=== PATIENT | male | born 1940 | race Caucasian/White ===

== ENCOUNTER → 2016-12-10 | Outpatient (CLI) | payer MEDICARE, OTHER ==
[~2016-12-10] MED LIST: ASPI81TA81 PO; BENI40TA30; CELE200; CHOL1CAP6 PO; COEN1CAP17 PO; ECOT81TA2; EZET1TAB8 PO; FOLI1CAP9 PO; GABA300C5 PO; HYDR-2374 PO; HYDR200T3 PO; METH4PAK PO; OLME1TAB7 PO; OMEG1CAP28 PO; OMEGCAP PO; OMEP40CA2 PO; PRAV20TA2 PO; SM M250T PO; Z.0.UNKNOWN
[2016-12-10 10:48] LABS: HEMATOCRIT 49.6 % (39.0-51.0); MEAN CELL VOLUME 91.9 FL (80.0-100.0); MEAN CORPUSCULAR HEMOGLOBIN 30.1 PG (27.0-34.0); MEAN CORPUSCULAR HGB CONC 32.8 % (32.0-36.0); PLATELET COUNT 256 TH/MM3 (150-450); RED CELL DISTRIBUTION WIDTH 14.3 % (11.6-17.2); REVIEW FLAG FINAL; WHITE BLOOD COUNT 8.6 TH/MM3 (4.0-11.0)
[2016-12-10 11:04] LABS: BLOOD, URINE NEG (NEG); GLUCOSE,URINE NEG (NEG); KETONE, URINE NEG (NEG); NITRITE,URINE NEG (NEG); PH, URINE 5.5 (5.0-8.5); URINE COLOR YELLOW (YELLW/STRAW)
[2016-12-10 11:05] LABS: APTT (PATIENT) 29.4 SEC (24.3-30.1); PROTHROMBIN TIME - PATIENT 10.5 SEC (9.8-11.6)
[2016-12-10 11:19] LABS: POTASSIUM 4.6 MEQ/L (3.5-5.1)
[2016-12-10 11:21] LABS: COMMENT (UR) CULT NOT INDICATED; CULTURE IF INDICATED CULT NOT INDICATED
== END ==
LOC: CPRE 08:52
PROVIDERS: ATTEND Orthopaedic Surgery
DX: Z01.812 Encounter for preprocedural laboratory examination (principal); M79.609 Pain in unspecified limb; M16.11 Unilateral primary osteoarthritis, right hip; I10 Essential (primary) hypertension
CPT/HCPCS: 36415; 80048; 81001; 85027; 85610; 85730

== ENCOUNTER 2017-08-13 11:35 | Emergency (ER) | payer MEDICARE, OTHER ==
[~2017-08-13] VITALS: Ht 175.3 cm; Wt 94.0 kg
[~2017-08-13 11:35] MED LIST changes: -BENI40TA30; -CELE200; -CHOL1CAP6 PO; +D31000CA3 PO; -ECOT81TA2; -Z.0.UNKNOWN
[2017-08-13 11:52] VITALS: BP 152/94; PULSE 82; RESP 20; TEMP 98; O2SAT 97
[2017-08-13] MEDS ORDERED: DULO1CAP2 PO (13:30)
[2017-08-13] MEDS ORDERED: SODIUM CHLOR 0.9% 1000 ML INJ 1,000 ML IV ONE (13:30)
--- NOTE | 2017-08-13 13:31 | PD ---
HPI Chief Complaint: GI Complaint Time Seen by Provider: 13:23 Travel History International Travel<30 days: No Contact w/Intl Traveler<30days: No Traveled to known affect area: No History of Present Illness HPI 77-year-old male presented ER for evaluation of nausea vomiting since this morning. Patient had cereal this morning and since then he has been having nausea and vomiting, he vomited 2 times, vomiting is nonbilious none projectile , no abdominal pain, no diarrhea, no chest pain or shortness of breath. Patient has had one episode of sweating at [facility] this morning after the vomiting and that is why they came to the ER. He has no blurred vision, no headache, no neurological symptoms. PFSH Past Medical History High Cholesterol: Yes Diabetes: Yes Hypertension: Yes ?: Not Past Surgical History Abdominal Surgery: Yes (LEFT INGUINAL HERNIA REPAIRS X 3; RIGHT INGUINAL HERNIA REPAIR X 1) Joint Replacement: Yes (KNEE 2004) Tonsillectomy: Yes (1969) Other Surgery: Yes (HERNIA REPAIR ) Social History Alcohol Use: Yes (1 DRINK EVERY COUPLE OF DAYS) Tobacco Use: Yes (2 CIGARS A WEEK) Substance Use: No Allergies-Medications (Allergen,Severity, Reaction): Coded Allergies: No Known Allergies (Verified Adverse Reaction, Unknown, 08/13/17) Reported Meds & Prescriptions Reported Meds & Active Scripts Active Zofran Odt (Ondansetron Odt) 4 Mg Tab 4 Mg SL Q12HR PRN Reported Duloxetine DR (Duloxetine HCl) 30 Mg Capdr 30 Mg PO DAILY Methylprednisolone Dosepak (Methylprednisolone) 4 Dspk 4 Mg PO DIRECTED Per Pharmacist Direction Aspir-81 (Aspirin) 81 Mg Tabdr 81 Mg PO DAILY Vitamin D-3 (Cholecalciferol) 1,000 Unit Cap 1,000 Unit PO DAILY Cyfolex (Folic Xhtz-Wvnlcljkiiwsukn-Zvrndau) 1-800-50 Mg-Units-Mg Cap 1 Cap PO DAILY Jfa72-Altvmku E (Coenzyme J84-Svchgrz E) 200 MG-20 Unit Cap 200 Mg PO DAILY Pravastatin 20 Mg Tab 20 Mg PO HS Maynard-3 Fish Oil/Vitamin (Fish Oil-Cholecalciferol) 1,000-1,000 Mg Cap 1 Cap PO DAILY Ezetimibe 10 Mg Tab 10 Mg PO DAILY Olmesartan-Hydrochlorothiazide 40-12.5 Mg Tab 1 Tab PO DAILY Omeprazole 40 Mg Cap 40 Mg PO DAILY Review of Systems Except as stated in HPI: all other systems reviewed are Neg Physical Exam Narrative GENERAL: Alert oriented 3 no acute distress. SKIN: Focused skin assessment warm/dry. HEAD: Atraumatic. Normocephalic. EYES: Pupils equal and round. No scleral icterus. No injection or drainage. ENT: No nasal bleeding or discharge. Mucous membranes pink and moist. NECK: Trachea midline. No JVD. CARDIOVASCULAR: Regular rate and rhythm. No murmur appreciated. RESPIRATORY: No accessory muscle use. Clear to auscultation. Breath sounds equal bilaterally. GASTROINTESTINAL: Abdomen soft, non-tender, nondistended. Hepatic and splenic margins not palpable. MUSCULOSKELETAL: No obvious deformities. No clubbing. No cyanosis. No edema. NEUROLOGICAL: Awake and alert. No obvious cranial nerve deficits. Motor grossly within normal limits. Normal speech. PSYCHIATRIC: Appropriate mood and affect; insight and judgment normal. Data Data Last Documented VS Vital Signs Date Time Temp Pulse Resp B/P (MAP) Pulse Ox O2 Delivery O2 Flow Rate FiO2 08/13/17 14:51 08/13/17 14:25 80 18 99 08/13/17 11:52 98.0 Orders Orders Sodium Chlor 0.9% 1000 Ml Inj (Ns 1000 M (08/13/17 13:30) Complete Blood Count With Diff (08/13/17 13:29) Comprehensive Metabolic Panel (08/13/17 13:29) Lipase (08/13/17 13:29) Troponin I (08/13/17 13:29) Ed Discharge Order (08/13/17 14:35) Labs Laboratory Tests Test 08/13/17 13:45 White Blood Count 18.3 TH/MM3 Red Blood Count 5.25 MIL/MM3 Hemoglobin 16.4 GM/DL Hematocrit 48.9 % Mean Corpuscular Volume 93.2 FL Mean Corpuscular Hemoglobin 31.2 PG Mean Corpuscular Hemoglobin Concent 33.4 % Red Cell Distribution Width 14.3 % Platelet Count 362 TH/MM3 Mean Platelet Volume 7.6 FL Neutrophils (%) (Auto) 88.5 % Lymphocytes (%) (Auto) 3.0 % Monocytes (%) (Auto) 7.6 % Eosinophils (%) (Auto) 0.3 % Basophils (%) (Auto) 0.6 % Neutrophils # (Auto) 16.1 TH/MM3 Lymphocytes # (Auto) 0.5 TH/MM3 Monocytes # (Auto) 1.4 TH/MM3 Eosinophils # (Auto) 0.1 TH/MM3 Basophils # (Auto) 0.1 TH/MM3 CBC Comment AUTO DIFF Differential Comment AUTO DIFF CONFIRMED Blood Urea Nitrogen 22 MG/DL Creatinine 0.86 MG/DL Random Glucose 133 MG/DL Total Protein 8.0 GM/DL Albumin 4.0 GM/DL Calcium Level 9.3 MG/DL Alkaline Phosphatase 72 U/L Aspartate Amino Transf (AST/SGOT) 26 U/L Alanine Aminotransferase (ALT/SGPT) 34 U/L Total Bilirubin 0.6 MG/DL Sodium Level 137 MEQ/L Potassium Level 4.0 MEQ/L Chloride Level 102 MEQ/L Carbon Dioxide Level 26.4 MEQ/L Anion Gap 9 MEQ/L Estimat Glomerular Filtration Rate 87 ML/MIN Troponin I LESS THAN 0.02 NG/ML Lipase 116 U/L MDM Medical Decision Making Medical Screen Exam Complete: Yes Emergency Medical Condition: Yes Differential Diagnosis Gastroenteritis, gastritis, pancreatitis, UTI, dehydration, anxiety. Narrative Course 77-year-old male presented ER complaining of nausea vomiting since this morning associated with sweating. Patient was given IV fluids here in the ER and he says that he improved. He is no more nauseated and feels much better and says he is ready to go home. Labs are within normal limits except for mildly elevated white blood cells and could be explained by stress from the vomiting. There is no source of infection. We will give the patient some Zofran for nausea and advised him to return to your symptoms change or do not improve. Laboratory Tests Test 08/13/17 13:45 White Blood Count 18.3 TH/MM3 Red Blood Count 5.25 MIL/MM3 Hemoglobin 16.4 GM/DL Hematocrit 48.9 % Mean Corpuscular Volume 93.2 FL Mean Corpuscular Hemoglobin 31.2 PG Mean Corpuscular Hemoglobin Concent 33.4 % Red Cell Distribution Width 14.3 % Platelet Count 362 TH/MM3 Mean Platelet Volume 7.6 FL Neutrophils (%) (Auto) 88.5 % Lymphocytes (%) (Auto) 3.0 % Monocytes (%) (Auto) 7.6 % Eosinophils (%) (Auto) 0.3 % Basophils (%) (Auto) 0.6 % Neutrophils # (Auto) 16.1 TH/MM3 Lymphocytes # (Auto) 0.5 TH/MM3 Monocytes # (Auto) 1.4 TH/MM3 Eosinophils # (Auto) 0.1 TH/MM3 Basophils # (Auto) 0.1 TH/MM3 CBC Comment AUTO DIFF Differential Comment Blood Urea Nitrogen 22 MG/DL Creatinine 0.86 MG/DL Random Glucose 133 MG/DL Total Protein 8.0 GM/DL Albumin 4.0 GM/DL Calcium Level 9.3 MG/DL Alkaline Phosphatase 72 U/L Aspartate Amino Transf (AST/SGOT) 26 U/L Alanine Aminotransferase (ALT/SGPT) 34 U/L Total Bilirubin 0.6 MG/DL Sodium Level 137 MEQ/L Potassium Level 4.0 MEQ/L Chloride Level 102 MEQ/L Carbon Dioxide Level 26.4 MEQ/L Anion Gap 9 MEQ/L Estimat Glomerular Filtration Rate 87 ML/MIN Troponin I LESS THAN 0.02 NG/ML Lipase 116 U/L Diagnosis Primary Impression: Gastroenteritis Additional Instructions: Follow-up with primary care physician and return to your symptoms change or do not improve. Scripts Ondansetron Odt (Zofran Odt) 4 Mg Tab 4 MG SL Q12HR Y for Nausea/Vomiting, #20 TAB 0 Refills Prov: Janes Smart MD 08/13/17 Disposition: 01 DISCHARGE HOME Condition: Stable Janes Smart MD Aug 13, 2017 13:31
[2017-08-13 14:11] LABS: AUTOMATED NEUTROPHIL # 16.1 TH/MM3 (1.8-7.7); BASOPHIL # 0.1 TH/MM3 (0-0.2); BASOPHIL % 0.6 % (0.0-2.0); EOSINOPHIL # 0.1 TH/MM3 (0-0.4); EOSINOPHIL % 0.3 % (0.0-4.0); HEMATOCRIT 48.9 % (39.0-51.0); HEMOGLOBIN 16.4 GM/DL (13.0-17.0); LYMPHOCYTE # 0.5 TH/MM3 (1.0-4.8); MEAN CELL VOLUME 93.2 FL (80.0-100.0); MEAN CORPUSCULAR HEMOGLOBIN 31.2 PG (27.0-34.0); MEAN CORPUSCULAR HGB CONC 33.4 % (32.0-36.0); MEAN PLATELET VOLUME 7.6 FL (7.0-11.0); MONO % 7.6 % (0.0-8.0); MONOCYTE # 1.4 TH/MM3 (0-0.9); NEUT % 88.5 % (16.0-70.0); PLATELET COUNT 362 TH/MM3 (150-450); RED BLOOD COUNT 5.25 MIL/MM3 (4.50-5.90); RED CELL DISTRIBUTION WIDTH 14.3 % (11.6-17.2); WHITE BLOOD COUNT 18.3 TH/MM3 (4.0-11.0)
[2017-08-13 14:16] LABS: CHLORIDE 102 MEQ/L (98-107); SODIUM (NA) 137 MEQ/L (136-145)
[2017-08-13 14:19] LABS: BICARBONATE 26.4 MEQ/L (21.0-32.0); CALCIUM 9.3 MG/DL (8.5-10.1); GLUCOSE,RANDOM 133 MG/DL (74-106)
[2017-08-13 14:20] LABS: BLOOD UREA NITROGEN 22 MG/DL (7-18)
[2017-08-13 14:22] LABS: ALT (GPT) 34 U/L (12-78); AST (GOT) 26 U/L (15-37)
[2017-08-13 14:23] LABS: CREATININE 0.86 MG/DL (0.60-1.30); GLOMERULAR FILTRATION RATE 87 ML/MIN (>89)
[2017-08-13 14:24] LABS: TOTAL BILIRUBIN ADULT 0.6 MG/DL (0.2-1.0)
[2017-08-13 14:25] VITALS: BP 121/72; PULSE 80; RESP 18; O2SAT 99
[2017-08-13 14:25] LABS: ALKALINE PHOSPHATASE 72 U/L (45-117)
[2017-08-13 14:27] LABS: TROPONIN I LESS THAN 0.02 NG/ML (0.02-0.05)
[2017-08-13] MEDS ORDERED: ZOFR4TAB3 SL (14:45)
== END 2017-08-13 14:52 | disposition home or self-care (01) ==
LOC: PHED 11:35
DX: K52.9 Noninfective gastroenteritis and colitis, unspecified (principal); R61 Generalized hyperhidrosis; E11.9 Type 2 diabetes mellitus without complications; E78.00 Pure hypercholesterolemia, unspecified; I10 Essential (primary) hypertension; Z72.0 Tobacco use; Z79.82 Long term (current) use of aspirin; Z79.899 Other long term (current) drug therapy
CPT/HCPCS: 80053; 83690; 84484; 85025; 96360; 99284; J7030

== ENCOUNTER 2017-09-16 07:00 | Inpatient (IN) ==
[2017-09-30] MEDS ORDERED: Chlorhexidine Gluconate 2% 1 Pack (2 Cloths) TOPICAL SCH (05:45)
[2017-09-30] MEDS ORDERED: Chlorhexidine 4% Topical 120 APPLIC/120 ML Bottle TOPICAL SCH (05:45)
[2017-09-30] MEDS ORDERED: Metoprolol Tartrate 25 MG Tablet PO SCH (05:45)
[2017-09-30] MEDS ORDERED: Sodium Chlor 0.9% Inj 500 ML IV.SIG SCH (06:00)
[2017-09-30] MEDS ORDERED: ceFAZolin 2 GM Premix Inj 2 GM/50 ML PIGGYBACK IV.SIG SCH (06:00)
[2017-09-30] MEDS ORDERED: Dexmedetomidine Inj 200 MCG/2 ML Vial ONE (06:20)
[2017-09-30] MEDS ORDERED: fentaNYL Citrate Inj 100 MCG/2 ML Ampul ONE (06:20)
[2017-09-30] MEDS ORDERED: Propofol Inj 500 MG/50 ML Vial ONE (06:20)
[2017-09-30] MEDS ORDERED: Famotidine PF Inj 20 MG/2 ML Vial ONE (06:20)
[2017-09-30] MEDS ORDERED: Bupivacaine/Dextrose 0.75% Inj 2 ML Ampul ONE (06:20)
[2017-09-30] MEDS ORDERED: TRANEXAMIC ACID IV.SIG SCH ×2 (07:00→10:00)
[2017-09-30] MEDS ORDERED: ceFAZolin Inj 2,000 MG in Sodium Chlor 0.9% Inj 100 ML IV.SIG SCH (07:00)
[2017-09-30] MEDS ORDERED: Sodium Chlor 0.9% Inj 40 ML, Bupivacaine Liposo PF 1.3% Inj 20 ML P-ARTICULR SCH ×2 (07:00)
[2017-09-30] MEDS ORDERED: SODIUM CHLOR 0.9% IV.SIG SCH ×2 (07:00→10:00)
--- NOTE | 2017-10-17 09:47 | P.HPOP ---
History of Present Illness Primary Care Physician: Yousif Brock MD History of Present Illness: Present Illness: This 77 year old man began having pain in the left hip approximately 16 months ago. The pain began to increase steadily and has become functionally disabling in activities of daily living. The pain is increased on ambulation and increases more with increased weightbearing on the lower extremity. There is some relief obtained when limiting weightbearing. The patient is now able to ambulate only 200 to 300 feet because of the pain. The patient has also noticed stiffness in the joint and pain with movement. Other symptoms include left groin pain which radiates to the knee and occasionally to the lower leg, pain when turning over in bed, occasional giving way, and stiffness after sitting. Since the onset of the patient's pain, treatment has been rendered by Yousif Brock M.D., and the undersigned with analgesics, nonsteroidal anti- inflammatory agents, activity modification, exercises, ambulatory aids, and weight loss attempts. These non-operative medical treatments no longer give adequate pain relief to allow the patient to perform a functional level of activities of daily living. Imaging studies, including x-rays, show advanced arthritis of the left hip, including joint space narrowing to [id number] on the AP view and nearly so on the lateral view. There are minimal osteophytes. The soft tissues appear to be normal. The patient also has comorbidities as detailed below under the heading of "Current Medical Conditions", which have been addressed by the primary care physician and are being as well controlled as possible for the planned surgical procedure. - Diagnosis (1) Primary osteoarthritis of left hip Inpatient Certification: I certify that the inpatient services were ordered in accordance with Medicare regulations governing the order. This includes certification that hospital inpatient services are reasonable and necessary and in the case of services not specified as inpatient-only under 42 CFR 419.22(n), that they are appropriately provided as inpatient services in accordance to with the 2-midnight benchmark under 43 CFR 412.3(e) Review of Systems Past Surgical History: Herniorrhaphy: Four, [id number] Lumbar laminectomy: L4-L5, L3-L4, 1987 Shoulder arthroscopy: Right, 06-11-95, Dr. Smith Knee arthroscopy: Left, 09-06-00, Dr. Smith Total knee replacement: Left, 05-23-04, Dr. Smith Lumbar spine: L3-4, 2013 Past Medical History: Cryptococcus: 2004 No prior fractures Dehydration: July 2017 Current Medical Conditions: Hypertension Rheumatoid arthritis Current Physicians: Primary care physician: Yousif Brock M.D. Trust And Estates Attorney: Miles Valencia M.D. Rubber Goods Assembler: Robert Bills M.D. Independent Freight Agent: Betsy Wolff D.O. Pain management: Jimbo Finney M.D. Sports medicine: Dr. Alvarez Sausage Grinder: Geraldine Mijares M.D. Architect: Faith Murillo M.D. Neurologist: Kirk Tillman M.D. Medication: Aleve 220MG Tablet, Ref: 0 Amoxicillin 500MG Capsule, Sig: Take 4 capsules one hour prior to dental work with food, Qty: 4 Capsule, Ref: 0 BENICAR HCT 40-12.5 MG Tab(s), 90, Qty: 90, Ref: 0 Coq-10 200MG Capsule, Ref: 0 Duloxetine 30mg delayed-release capsule, Ref: 0 Ecotrin low strength 81MG Tablet Delayed Release, Ref: 0 Folic acid 800MCG Tablet, Ref: 0 Gabapentin 600MG Tablet, Ref: 0 HYDROXYCHLOR 200 MG Tab(s), 90, Qty: 180, Ref: 0 Magnesium 500MG Tablet, Ref: 0 Methylprednisolone 4MG Tablet, Ref: 0 Naproxen sodium 220mg tablet, Ref: 0 Jenkins 3 , Ref: 0 OMEPRAZOLE CAP 40MG 40 MG Capsule Delayed Release, 90, Qty: 90, Ref: 0 Pravastatin sodium 20MG Tablet, Ref: 0 VIAGRA 100 MG Tab(s), 10, Qty: 10, Ref: 0 Vitamin b-12 1000MCG Tablet, Ref: 0 Vitamin d3 1000UNIT Tablet, Ref: 0 ZETIA TAB 10MG 10 MG Tablet, 90, Qty: 90, Ref: 0 Allergies: No Known Drug Allergies Family History: Parents: Father-: Age 63, stroke, heart disease Parents: Mother-: Age 92, congestive heart failure, arthritis Siblings: Two living Sister: , esophageal cancer Brother: , aneurysm Grandmother: Maternal, breast cancer Social History: Marital Status: 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 [facility] - History History Provided By: Patient - Medical History Medical History: Medical History (Last Reviewed 10/15/17 @ 11:15 by Roberto Singh) Arthritis Constipated External hemorrhoid GERD (gastroesophageal reflux disease) Hard of hearing High cholesterol History of MRSA infection Hypertension Neuropathy Rheumatoid arthritis Skin cancer Urinary frequency Uses hearing aid Wears dentures Wears glasses - Surgical History Surgical History: Surgical History (Last Reviewed 10/15/17 @ 11:15 by Roberto Singh) H/O arthroscopy of shoulder H/O inguinal hernia repair History of laminectomy Hx of tonsillectomy Total knee replacement status - Family History Family History: Family History (Last Reviewed 10/15/17 @ 10:56 by Martha Garcia PT) Mother Osteoarthritis - Tobacco History Second Hand Smoke Exposure: No Smoking Status: Former smoker - Alcohol History How Often Do You Have a Drink Containing Alcohol: 2 to 4 times a month - Substance Use History Substance History: No History of Abuse - Travel History Recent Travel in the [place] Within the Last 8 Weeks: Yes Recent Travel Out of the Country Within the Last 8 Weeks: No Medications and Allergies Allergies Allergy/AdvReac Type Severity Reaction Status Date / Time chlorhexidine Allergy Severe Rash, Verified 10/14/17 11:22 Generalized hydroxychloroquine Allergy Rash Verified 10/14/17 11:22 Home Medications Medication Instructions Recorded Confirmed Type cholecalciferol (vitamin D3) 1,000 unit PO DAILY 09/05/17 10/14/17 History [Vitamin D3] coQ10 (ubiquinol) 200 mg PO DAILY 09/05/17 10/14/17 History cyanocobalamin (vitamin B-12) 2,000 mcg PO DAILY 09/05/17 10/14/17 History [Vitamin B-12] duloxetine 60 mg PO DAILY 09/05/17 10/14/17 History ezetimibe 10 mg PO DAILY 09/05/17 10/14/17 History folic acid 0.8 mg PO DAILY 09/05/17 10/14/17 History methylprednisolone 4 mg PO DAILY 09/05/17 10/14/17 History olmesartan-hydrochlorothiazide 0.5 tab PO DAILY 09/05/17 10/14/17 History omega [id number]-[id number]-fish oil [Jenkins-3] 1 cap PO DAILY 09/05/17 10/14/17 History omeprazole 40 mg PO DAILY 09/05/17 10/14/17 History pravastatin 20 mg PO HS 09/05/17 10/14/17 History Exam Narrative: Examination: Height: 5'11''; Weight: 200; BMI: 27.9 ; BP Sittin / 70 General: The patient is a well-developed, heavyset man appearing to be about his stated age. Head: Head is normocephalic and without injury. Eyes: Pupils are round, equal, and equally reactive to light and accommodation. The sclera are nonicteric. The conjunctiva are pink. Extraocular motions are full. Nose and throat: The tongue and uvula are midline. The mucous membranes are moist and intact. Dentition is incomplete, with dental appliances. Neck: The neck is supple. There is no palpable lymphadenopathy. The trachea is midline. Chest: The respiratory excursions are symmetrical. Breath sounds are normal. There are no rales, rhonchi or wheezes. Heart: The rhythm is regular. There is no audible murmur. Abdomen: There is no palpable or percussible organomegaly or mass. Bowel sounds are normal. There is no rebound, rigidity, or tenderness. The contour is somewhat rotund. Extremities: The patient is able to stand from a seated position without difficulty. He transfers with minimal difficulty, using his left hand to assist transferring his left hip. The gait is antalgic on the left. Both hips are examined for comparison. There is no visible deformity. There is no tenderness to palpation in the hip at this time. The range of motion of the hips is as follows: Right side Left side Flexion 110 110 External rotation 70 40 Internal rotation 15 5 Adduction 20 15* Abduction 40 20* In the chart above, an asterisk (*) denotes pain at the extreme of motion. The tenderness is in his groin. Ruben test is negative on the right. Ruben test is positive on the left. Straight leg raising comes to 90 on the right and 80 on the left. Hamstring tightness measures 10 on the right and 10 on the left with the hip at 90. Pulses in the right leg are normal at the dorsalis pedis and posterior tibial levels. Pulses in the left leg are normal at the dorsalis pedis and posterior tibial levels. There are no clinically significant varicosities. There is no edema. Neurologic: The patient is alert and oriented. Cranial nerves II through XII are grossly intact. Sensory and motor examinations are grossly intact. Results - Diagnostic results Imaging: Imaging studies, including x-rays, show advanced arthritis of the left hip, including joint space narrowing to [id number] on the AP view and nearly so on the lateral view. There are minimal osteophytes. The soft tissues appear to be normal. Hip x-ray: other Caprini VTE Risk Assessment Caprini VTE Risk Assessment: No/Low Risk (score <= 1) Caprini Risk Assessment Model: Point Value = 1 Point Value = 2 Point Value = 3 Point Value = 5 Age 41-60 Minor surgery BMI > 25 kg/m2 Swollen legs Varicose veins or History of unexplained or recurrent spontaneous Oral contraceptives or hormone replacement Sepsis (< 1 month) Serious lung disease, including pneumonia (< 1 month) Abnormal pulmonary function Acute myocardial infarction Congestive heart failure (< 1 month) History of inflammatory bowel disease Medical patient at bed rest Age 61-74 Arthroscopic surgery Major open surgery (> 45 min) Laparoscopic surgery (> 45 min) Malignancy Confined to bed (> 72 hours) Immobilizing plaster cast Central venous access Age >= 75 History of VTE Family history of VTE Factor V Leiden Prothrombin [id number] Lupus anticoagulant Anticardiolipin antibodies Elevated serum homocysteine Heparin-induced thrombocytopenia Other congenital or acquired thrombophilia Stroke (< 1 month) Elective arthroplasty Hip, pelvis, or leg fracture Acute spinal cord injury (< 1 month) Prophylaxis Regimen: Total Risk Factor Score Risk Level Prophylaxis Regimen 0-1 Low Early ambulation 2 Moderate Order ONE of the following: *Sequential Compression Device (SCD) *Heparin 5000 units SQ BID 3-4 Higher Order ONE of the following medications: *Heparin 5000 units SQ TID *Enoxaparin/Lovenox 40 mg SQ daily (WT < 150 kg, CrCl > 30 mL/min) *Enoxaparin/Lovenox 30 mg SQ daily (WT < 150 kg, CrCl > 10-29 mL/min) *Enoxaparin/Lovenox 30 mg SQ BID (WT < 150 kg, CrCl > 30 mL/min) AND/OR *Sequential Compression Device (SCD) 5 or more Highest Order ONE of the following medications: *Heparin 5000 units SQ TID (Preferred with Epidurals) *Enoxaparin/Lovenox 40 mg SQ daily (WT < 150 kg, CrCl > 30 mL/min) *Enoxaparin/Lovenox 30 mg SQ daily (WT < 150 kg, CrCl > 10-29 mL/min) *Enoxaparin/Lovenox 30 mg SQ BID (WT < 150 kg, CrCl > 30 mL/min) AND *Sequential Compression Device (SCD) Assessment and Plan - Problem List (1) Primary osteoarthritis of left hip Code(s): M16.12 - Unilateral primary osteoarthritis, left hip Status: Chronic - Assessment and Plan Plan: A left total hip arthroplasty is planned. I have been in contact with the patient's primary care physician, Yousif Brock M.D. Medical problems will be managed by [facility] during the hospitalization. I have explained the procedure to the patient. The patient understands the procedure, risks, possible complications (including but not limited to postoperative or intraoperative bleeding, infection, leg length inequality, dislocation, fracture, deep vein thrombosis, pulmonary embolus, neurovascular compromise, possible need for additional procedures and, very rarely, the possibility of ), expected results, and expected course of treatment. The patient accepts the above noted risks because the potential benefits of joint replacement outweigh the failure of non-operative care to provide adequate pain relief and/or to improve associated functional disabilities. The patient understands that there are no expressed or implied guarantees with the proposed procedure. After the hospitalization, the patient plans to go home with home health care, [facility].
== END 2017-09-30 06:50 | disposition home or self-care (01) ==
LOC: HSDI 09-30 05:17
PROVIDERS: ADMIT Orthopaedic Surgery; ATTEND Orthopaedic Surgery

== ENCOUNTER 2017-10-14 10:45 | Inpatient (IN) ==
[2017-10-14] MEDS ORDERED: Metoprolol Tartrate 25 MG Tablet PO SCH (11:30)
[2017-10-14] MEDS ORDERED: ceFAZolin 2 GM Premix Inj 2 GM/100 ML BAG IV.SIG SCH (11:38)
[2017-10-14] MEDS ORDERED: Sodium Chlor 0.9% Inj 40 ML, Bupivacaine Liposo PF 1.3% Inj 20 ML P-ARTICULR SCH ×2 (11:45)
[2017-10-14] MEDS ORDERED: Sodium Chlor 0.9% Inj 500 ML IV.SIG SCH (12:00)
[2017-10-14] MEDS ORDERED: TRANEXAMIC ACID IV.SIG SCH ×2 (12:00→14:35)
[2017-10-14] MEDS ORDERED: SODIUM CHLOR 0.9% IV.SIG SCH ×2 (12:00→14:35)
[2017-10-14] MEDS ORDERED: Phenylephrine/NS 1000 MCG/10ML Syringe IV.PUSH ONE (13:59)
[2017-10-14] MEDS ORDERED: Glycopyrrolate Inj 1 MG/5 ML Syringe IV.PUSH ONE (13:59)
[2017-10-14] MEDS ORDERED: Neostigmine Inj 5 MG/5 ML Syringe IV.PUSH ONE (13:59)
[2017-10-14] MEDS ORDERED: Lidocaine PF 1% Inj 5 ML Syringe INFILTRATN ONE (13:59)
--- NOTE | 2017-10-14 16:25 | P.OP ---
- Preoperative Diagnosis (1) Primary osteoarthritis of left hip - Postoperative Diagnosis (1) Primary osteoarthritis of left hip Date of procedure: 10/14/17 Procedure: Left total hip arthroplasty using Lincoln prosthesis. Anesthesia: GETA, local (Exparel) Surgeon: Michael Smith MD Batchmaker: BLUE Murillo Estimated blood loss (mL): 200 Pathology: none sent Operation and Findings: Indications and Findings: This 77-year-old man has had long-standing left hip pain at least over the last 16 months. This has been progressively worsening over time. His ambulation tolerance is 200-300 feet. He has groin pain that radiates to the knee. He has been treated with anti-inflammatory agents, analgesics, activity modification, exercises and ambulatory aids with no improvement and substantial worsening. Physical findings showed an antalgic gait with limited motion of the hip, tenderness on motion and some crepitation. X-rays show severe osteoarthritis down to [id number] with some collapse of the femoral head, eburnation and osteophytes. Operative findings: The femoral head had significant erosion covering almost the entire superior aspect with osteophytes and eburnation. The acetabulum also had erosion with eburnation and osteophytes. Implants: The acetabular component was a 56 mm outer diameter Trident 2 Tritanium with a 36 mm inner diameter 0 X3 polyethylene liner. The femoral component was Accolade 2 size 6 x 132. The femoral head was Biolox Delta 36 mm outer diameter with -5 mm offset. The patient was brought to the clean air operating suite and a general endotracheal anesthetic was administered. The patient was positioned into a lateral position with the operative hip up on a Biomet lateral positioner. The hip and lower extremity were prepped with alcohol, Hibiclens and ChloraPrep and draped in the usual manner with the hip draped free. Patient received prophylactic antibiotics preoperatively. The patient also received tranexamic acid preoperatively. An appropriate timeout procedure was carried out. An incision was made from the midportion of the greater trochanter proximally and posteriorly paralleling the fibers of the gluteus aleida. The incision was deepened through subcutaneous tissues down to the fascia octaviano and gluteus fascia. The gluteus fascia was then split longitudinally in line with its fibers up to the upper portion of the fascia octaviano. With wound towels in place, the Charnley retractor was inserted. The sciatic nerve was identified and protected throughout the procedure. Dissection was then carried down to the interval between the gluteus minimus and the piriformis. A retractor was inserted. The piriformis and obturator conjoined tendon was released from the greater trochanter and reflected off the capsule. A capsulotomy was made longitudinally along the femoral neck to the base of the femoral neck and then curved distally along the posterior aspect of the greater trochanter. The hip was internally rotated. Further release of the external rotators was carried out exposing the hip. The hip was dislocated. The femoral neck was transected at the appropriate level using the oscillating saw placement of appropriate retractors. The femoral head was removed. Preparation of the femur was initiated with a box osteotome followed by a curet to identify the medullary canal. Broaching was then initiated with the size 0 broach and went in 1 size increments up to size 6. The broach handle was removed. The femoral neck was then trimmed with a calcar planar. Attention was then directed to the acetabulum. Soft tissues were debrided from the acetabulum. Retractors were placed about the acetabulum. Reaming was then initiated with the 49 millimeter reamer and went in 1-2 mm increments up to the 56 millimeter diameter reamer. A trial reduction with the 56 millimeter trial prosthesis was carried out. When this was deemed to be appropriate, the trial prosthesis was removed. The acetabulum was irrigated and cleaned. The actual prosthesis as noted above was impacted into place and seated appropriately. Drill holes were made and sounded. Appropriate sized screws were inserted to stabilize the acetabulum further. The liner as noted above was inserted into the acetabular shell and impacted into place. Osteophytes were trimmed from the acetabulum. Local anesthetic was administered throughout the area of the acetabulum and anterior aspect of the femur. The trial neck was placed on the broach for the above-noted prosthesis. The femoral head trial was placed onto the femoral neck . A trial reduction was carried out. Adjustment was made as needed. The stability, leg length and motion were excellent. There was no pistoning. The trial prosthesis was removed. The broach was removed. The femoral component was impacted into the medullary canal of the femur after irrigation and suctioning. When this was appropriately seated a trial reduction was again carried out with the trial prosthesis. There was no pistoning. The leg length was appropriate. The stability and motion were excellent. The trial prosthesis was then removed. After cleaning and drying the trunion of the femoral component, the above-noted femoral head was impacted onto the trunnion. The hip was reduced. The stability and mobility were again checked along with leg lengths as noted above. The hip was positioned appropriately and closure commenced after the remainder of the local anesthetic was injected throughout the hip. The external rotators and capsule were repaired with #1 Vicryl interrupted transosseous sutures with a Krakw technique to reattach the external rotators and capsule to the posterior aspect of the greater trochanter. The capsule itself on the superior aspect was closed with #1 Vicryl interrupted [id number] sutures. The sciatic nerve was inspected. The fascia octaviano and gluteus fascia were repaired with #1 Vicryl interrupted [id number] sutures. The subcutaneous tissues were closed with 2-0 Vicryl interrupted simple sutures with buried knots. The skin was closed with a continuous subcuticular closure of 4-0 Monocryl. The wound was then approximated with Dermabond Prineo. A dry sterile dressing was applied to the hip. A knee immobilizer was applied to the leg. The patient was transferred from the operating room to the recovery room in satisfactory condition having tolerated the procedure well. Counts are correct. Specimens: None. Estimated blood loss: 200 mL
--- NOTE | 2017-10-14 16:27 | P.DCO ---
- Physical Therapy Physical Therapy: Gait training Hip: Total hip, Protocol: Left, Posterior hip precautions, Progress to weight bearing Canvas Knee Splint: When in bed with 2 pillows between thighs Right Lower Extremity Weight Bearing: Weight bearing as tolerated Right Lower Extremity Range of Motion: Active ROM - Nursing Nursing: Dressing changes Dressing changes: Daily dressing change, Coverderm/Primapore Additional instructions: Do not remove Dermabond Prineo. - Certification Need for Home Health services: I have seen patient Michael Sal on 10/14/17. My clinical findings support the need for the requested home health care services because: Need for Home Health Services: Deconditioned with increased weakness, High risk of falls Homebound Certification: I certify that my clinical findings support that this patient is homebound because: Homebound Certification: Post-op weakness, Unsteady gait/balance, Unsafe to leave home unassisted
[2017-10-14] MEDS ORDERED: Post-op Orders (for Pharmacy) OTHER STA (16:33)
[2017-10-14] MEDS ORDERED: Bisacodyl 10 MG Supp RECTAL PRN (16:33)
[2017-10-14] MEDS ORDERED: Tranexamic Acid Inj 0 MG in Sodium Chlor 0.9% Inj 100 ML IV.SIG ONE (16:33)
[2017-10-14] MEDS ORDERED: Aluminum/Magnesium/Simethacone Susp 30 ML UDC PO PRN (16:33)
[2017-10-14] MEDS ORDERED: Morphine Inj 4 MG/ML Vial IV.PUSH PRN (16:33)
[2017-10-14] MEDS ORDERED: Acetaminophen 325 MG Tablet PO PRN (16:33)
--- NOTE | 2017-10-14 17:06 | XR ---
EXAM DATE: 10/14/2017 5:02 PM EDT AGE/SEX: 77 years / Male INDICATIONS: Post left hip replacement CLINICAL DATA: This is the patient's initial encounter. Patient reports that signs and symptoms have been present for 1 day and indicates a pain score of Nonresponsive. MEDICAL/SURGICAL HISTORY: Non-responsive. Non-responsive. COMPARISON: POI, XR HIP AP AND LAT, LEFT, 06/21/2016. . FINDINGS: Total hip arthroplasty is in satisfactory position. The alignment is anatomic. CONCLUSION: Postsurgical changes as above. Electronically signed by: Yuosif Owens MD 10/14/2017 5:05 PM EDT
--- NOTE | 2017-10-14 17:33 | P.CONIM ---
History of Present Illness Primary Care Provider: Yousif Brock MD Family Provider: Yousif Brock [facility] - History History Provided By: Patient - Medical History Medical History: Medical History (Last Reviewed 10/14/17 @ 11:25 by Phu Champion, RN) Arthritis Constipated External hemorrhoid GERD (gastroesophageal reflux disease) Hard of hearing High cholesterol History of MRSA infection Hypertension Neuropathy Rheumatoid arthritis Skin cancer Urinary frequency Uses hearing aid Wears dentures Wears glasses - Surgical History Surgical History: Surgical History (Last Reviewed 10/14/17 @ 11:25 by Phu Champion, RN) H/O arthroscopy of shoulder H/O inguinal hernia repair History of laminectomy Hx of tonsillectomy Total knee replacement status - Tobacco History Second Hand Smoke Exposure: No Smoking Status: Former smoker - Alcohol History How Often Do You Have a Drink Containing Alcohol: 2 to 3 times a week - Substance Use History Substance History: No History of Abuse - Travel History Recent Travel in the [place] Within the Last 8 Weeks: No Recent Travel Out of the Country Within the Last 8 Weeks: No Medications and Allergies Active Medications: Active Medications Acetaminophen (Tylenol) 650 mg PO Q6H PRN PRN Reason: Pain Less Than 3 On Scale Hydrocodone Bitart/Acetaminophen (Maple 7.5/325) 1 tab PO Q4H PRN PRN Reason: PAIN SCALE 4 TO 6 MODERATE Hydrocodone Bitart/Acetaminophen (Maple 7.5/325) 2 tab PO Q6H PRN PRN Reason: PAIN SCALE 7 TO 10 SEVERE Al Hydrox/Mg Hydrox/Simethicone (Mag-Al Plus Susp Liq) 30 ml PO Q6H PRN PRN Reason: INDIGESTION Al Hydroxide/Mg Hydroxide (Milk Of Magnesia Liq) 30 ml PO BID PRN PRN Reason: Mild Constipation Aspirin (Ecotrin) 81 mg PO BID ANTHONY Bisacodyl (Dulcolax Supp) 10 mg RECTAL DAILY PRN PRN Reason: SEVERE CONSITIPATION Sodium Chloride 40 ml/ (Bupivacaine Liposome 20 ml) 0 ml P-ARTICULR ONCE ANTHONY Stop: 10/14/17 18:00 Last Admin: 10/14/17 15:37 Dose: 60 bag Diphenhydramine HCl (Benadryl) 25 mg PO Q6H PRN PRN Reason: ITCHING Duloxetine HCl (Cymbalta) 60 mg PO DAILY ANTHONY Ezetimibe (Zetia) 10 mg PO DAILY [facility] Lactated Ringer's (Lr 1000 Ml Inj) 1,000 mls @ 30 mls/hr IV.SIG .Q24H [facility] Stop: 10/17/17 11:30 Last Admin: 10/14/17 11:42 Dose: 30 mls/hr Sodium Chloride (Ns Inj) 500 mls @ 30 mls/hr IV.SIG .Q10H [facility] Stop: 10/17/17 11:30 Cefazolin/Sodium Chloride (Ancef 2 Gm Premix Inj) 2 gm in 100 mls @ 200 mls/hr IV.SIG [employer] [facility] Tranexamic Acid 886 mg/ Sodium (Chloride) 108.86 mls @ 200 mls/hr IV.SIG ONCE [facility] Stop: 10/15/17 11:59 Last Infusion: 10/14/17 15:14 Dose: Infused Tranexamic Acid 886 mg/ Sodium (Chloride) 108.86 mls @ 200 mls/hr IV.SIG ONCE [facility] Stop: 10/15/17 20:00 Lactated Ringer's (Lr 1000 Ml Inj) 1,000 mls @ 80 mls/hr IV.CONT .[id number] [facility] Tranexamic Acid / Sodium (Chloride) 100 mls @ 200 mls/hr IV.SIG ONCE ONE Stop: 10/14/17 17:02 Cefazolin Sodium 1,000 mg/ (Sodium Chloride) 100 mls @ 200 mls/hr IV.SIG Q6H [facility] Stop: 10/15/17 05:29 Ketorolac Tromethamine (Toradol Inj) 15 mg IV.PUSH Q6H [facility] Stop: 10/16/17 10:46 Lactulose (Lactulose Liq) 30 ml PO DAILY PRN PRN Reason: SEVERE CONSITIPATION Methylprednisolone (Medrol) 4 mg PO DAILY [facility] Metoprolol Tartrate (Lopressor) 25 mg PO [employer] [facility] Stop: 10/17/17 11:30 Last Admin: 10/14/17 11:43 Dose: Not Given Miscellaneous Information (Misc Post-Op Orders (For Pharmacy)) 0 each OTHER STAT STA Stop: 10/14/17 16:34 Miscellaneous Information (Misc Nursing Information) 1 each OTHER UNSCH PRN PRN Reason: SEE LABEL COMMENTS Stop: 10/15/17 16:41 Morphine Sulfate (Morphine Inj) 2 mg IV.PUSH Q3H PRN PRN Reason: BREAKTHROUGH PAIN Non-Formulary Medication (Cholecalciferol (Vitamin D3) [Vitamin D3]) 1,000 unit PO DAILY [facility] Non-Formulary Medication (Cyanocobalamin (Vitamin B-12) [Vitamin B-12]) 2,000 mcg PO DAILY [facility] Non-Formulary Medication (Folic Acid [Folic Acid]) 0.8 mg PO DAILY [facility] Non-Formulary Medication (Olmesartan-Hydrochlorothiazide [Olmesartan- Hydrochlorothiazide]) 0.5 tab PO DAILY [facility] Non-Formulary Medication (Omeprazole [Omeprazole]) 40 mg PO DAILY [facility] Ondansetron HCl (Zofran Odt) 4 mg PO Q6H PRN PRN Reason: NAUSEA OR VOMITING Povidone Iodine (Betadine 5% Antisepsis Kit) 1 applicatio EACH NARE [employer] [facility] Stop: 10/17/17 11:30 Last Admin: 10/14/17 11:42 Dose: Not Given Pravastatin Sodium (Pravachol) 20 mg PO HS [facility] Senna/Docusate Sodium (Masha-Colace) 1 tab PO BID [facility] Sennosides (Senokot) 17.2 mg PO BID PRN PRN Reason: Moderate Constipation Sodium Chloride (Ns Flush) 2 ml IV.FLUSH BID [facility] Sodium Chloride (Ns Flush) 2 ml IV.FLUSH PRN PRN PRN Reason: FLUSH AFTER USING IV ACCESS Zolpidem Tartrate (Ambien) 5 mg PO HS PRN PRN Reason: INSOMNIA Allergies Allergy/AdvReac Type Severity Reaction Status Date / Time chlorhexidine Allergy Severe Rash, Verified 10/14/17 11:22 Generalized hydroxychloroquine Allergy Rash Verified 10/14/17 11:22 Home Medications Medication Instructions Recorded Confirmed Type aspirin [Ecotrin Low Strength] 81 mg PO DAILY 09/05/17 10/14/17 History cholecalciferol (vitamin D3) 1,000 unit PO DAILY 09/05/17 10/14/17 History [Vitamin D3] coQ10 (ubiquinol) 200 mg PO DAILY 09/05/17 10/14/17 History cyanocobalamin (vitamin B-12) 2,000 mcg PO DAILY 09/05/17 10/14/17 History [Vitamin B-12] duloxetine 60 mg PO DAILY 09/05/17 10/14/17 History ezetimibe 10 mg PO DAILY 09/05/17 10/14/17 History folic acid 0.8 mg PO DAILY 09/05/17 10/14/17 History methylprednisolone 4 mg PO DAILY 09/05/17 10/14/17 History olmesartan-hydrochlorothiazide 0.5 tab PO DAILY 09/05/17 10/14/17 History omega 7-cot-beh-fish oil [[place]-3] 1 cap PO DAILY 09/05/17 10/14/17 History omeprazole 40 mg PO DAILY 09/05/17 10/14/17 History pravastatin 20 mg PO HS 09/05/17 10/14/17 History Exam Vital signs: Vital Signs 10/14/17 11:32 10/14/17 16:40 Temperature 97.7 F 97.3 F L Pulse Rate 72 74 Respiratory Rate 20 18 Blood Pressure 121/78 Pulse Oximetry 95 94 L Intake & Output 10/13/17 10/14/17 10/14/17 18:59 06:59 18:59 Intake Total 2608.86 / 2608.86 Output Total 200 / 200 Balance 2408.86 / 2408.86 Weight 88.6 kg Intake: IV 108.86 / 108.86 Cyklokapron Inj 886 MG In NS 108.86 / 108.86 Inj 100 ML @ 200 mls/hr IV.SIG ONCE ANTHONY Rx#:[id number] Anesthesia Amount 2500 / 2500 Output: Estimated Blood Loss 200 / 200 Other: Weight On Admission 88.6 kg Results - Labs Labs: Laboratory Results - last 24 hr 10/14/17 10:30 Blood Type A Positive Antibody Screen Negative - Imaging Impressions Hip X-Ray 10/14/17 16:28 CONCLUSION: Postsurgical changes as above.
--- NOTE | 2017-10-14 17:59 | P.CONIM ---
History of Present Illness Primary Care Provider: Yousif Brock MD Family Provider: Yousif Brock MD History of Present Illness: Mr. Sal is a 77-year-old male. He is admitted for a hip surgery. I am seeing him status post surgical intervention. At baseline he has rheumatoid arthritis which is likely etiology for his hip arthritis and hip replacement. No complaints when seen. Pain control. His other medical conditions are hypertension and hyperlipidemia. She denies any recent rheumatoid arthritis exacerbations. Review of Systems Constitutional: Denies fever(s), Denies malaise, Denies weakness Eyes: Denies blind spots, Denies blurry vision, Denies change in vision, Denies double vision Ears, Nose, Mouth, and Throat: Denies abnormal hearing, Denies bleeding gums, Denies change in voice Cardiovascular: Denies chest pain, Denies chest pain at rest, Denies chest pain with activity Respiratory: Denies change in phlegm color, Denies chest congestion, Denies coughing up blood Gastrointestinal: Denies abdominal pain, Denies black, tarry stools, Denies bloating Musculoskeletal: Reports abnormal walking, Reports body aches, Reports joint pain Skin/Breast: Denies rash, Denies skin pain, Denies skin ulcer, Denies sores Neurologic: Denies abnormal hearing, Denies abnormal movements, Denies abnormal speech Psychiatric: Denies abnormal sleep pattern, Denies anxiety, Denies behavioral changes PMFSH - History History Provided By: Patient - Medical History Medical History: Medical History (Last Reviewed 10/14/17 @ 11:25 by Phu Champion RN) Arthritis Constipated External hemorrhoid GERD (gastroesophageal reflux disease) Hard of hearing High cholesterol History of MRSA infection Hypertension Neuropathy Rheumatoid arthritis Skin cancer Urinary frequency Uses hearing aid Wears dentures Wears glasses - Surgical History Surgical History: Surgical History (Last Reviewed 10/14/17 @ 11:25 by Phu Champion RN) H/O arthroscopy of shoulder H/O inguinal hernia repair History of laminectomy Hx of tonsillectomy Total knee replacement status - Family History Family History: Family History (Last Updated 10/14/17 @ 17:57 by Jeyson Avendano MD) Mother Osteoarthritis - Tobacco History Second Hand Smoke Exposure: No Smoking Status: Former smoker - Alcohol History How Often Do You Have a Drink Containing Alcohol: 2 to 3 times a week - Substance Use History Substance History: No History of Abuse - Travel History Recent Travel in the [place] Within the Last 8 Weeks: No Recent Travel Out of the Country Within the Last 8 Weeks: No Medications and Allergies Active Medications: Active Medications Acetaminophen (Tylenol) 650 mg PO Q6H PRN PRN Reason: Pain Less Than 3 On Scale Hydrocodone Bitart/Acetaminophen ([place] 7.5/325) 1 tab PO Q4H PRN PRN Reason: PAIN SCALE 4 TO 6 MODERATE Hydrocodone Bitart/Acetaminophen ([place] 7.5/325) 2 tab PO Q6H PRN PRN Reason: PAIN SCALE 7 TO 10 SEVERE Al Hydrox/Mg Hydrox/Simethicone (Mag-Al Plus Susp Liq) 30 ml PO Q6H PRN PRN Reason: INDIGESTION Al Hydroxide/Mg Hydroxide (Milk Of Magnesia Liq) 30 ml PO BID PRN PRN Reason: Mild Constipation Aspirin (Ecotrin) 81 mg PO BID ANTHONY Bisacodyl (Dulcolax Supp) 10 mg RECTAL DAILY PRN PRN Reason: SEVERE CONSITIPATION Sodium Chloride 40 ml/ (Bupivacaine Liposome 20 ml) 0 ml P-ARTICULR ONCE ANTHONY Stop: 10/14/17 18:00 Last Admin: 10/14/17 15:37 Dose: 60 bag Diphenhydramine HCl (Benadryl) 25 mg PO Q6H PRN PRN Reason: ITCHING Duloxetine HCl (Cymbalta) 60 mg PO DAILY ANTHONY Ezetimibe (Zetia) 10 mg PO DAILY ANTHONY Lactated Ringer's (Lr 1000 Ml Inj) 1,000 mls @ 30 mls/hr IV.SIG .Q24H ANTHONY Stop: 10/17/17 11:30 Last Admin: 10/14/17 11:42 Dose: 30 mls/hr Sodium Chloride (Ns Inj) 500 mls @ 30 mls/hr IV.SIG .Q10H ANTHONY Stop: 10/17/17 11:30 Cefazolin/Sodium Chloride (Ancef 2 Gm Premix Inj) 2 gm in 100 mls @ 200 mls/hr IV.SIG DANCE INSTRUCTOR ANTHONY Tranexamic Acid 886 mg/ Sodium (Chloride) 108.86 mls @ 200 mls/hr IV.SIG ONCE ANTHONY Stop: 10/15/17 11:59 Last Infusion: 10/14/17 15:14 Dose: Infused Tranexamic Acid 886 mg/ Sodium (Chloride) 108.86 mls @ 200 mls/hr IV.SIG ONCE ANTHONY Stop: 10/15/17 20:00 Last Admin: 10/14/17 17:38 Dose: 200 mls/hr Lactated Ringer's (Lr 1000 Ml Inj) 1,000 mls @ 80 mls/hr IV.CONT .[id number] ANTHONY Tranexamic Acid / Sodium (Chloride) 100 mls @ 200 mls/hr IV.SIG ONCE ONE Stop: 10/14/17 17:02 Cefazolin Sodium 1,000 mg/ (Sodium Chloride) 100 mls @ 200 mls/hr IV.SIG Q6H ANTHONY Stop: 10/15/17 05:29 Ketorolac Tromethamine (Toradol Inj) 15 mg IV.PUSH Q6H ANTHONY Stop: 10/16/17 10:46 Lactulose (Lactulose Liq) 30 ml PO DAILY PRN PRN Reason: SEVERE CONSITIPATION Methylprednisolone (Medrol) 4 mg PO DAILY [facility] Metoprolol Tartrate (Lopressor) 25 mg PO DANCE INSTRUCTOR ANTHONY Stop: 10/17/17 11:30 Last Admin: 10/14/17 11:43 Dose: Not Given Miscellaneous Information [place] [place] 0 each OTHER STAT STA Stop: 10/14/17 16:34 Miscellaneous Information ([facility]) 1 each OTHER UNSCH PRN PRN Reason: SEE LABEL COMMENTS Stop: 10/15/17 16:41 Morphine Sulfate (Morphine Inj) 2 mg IV.PUSH Q3H PRN PRN Reason: BREAKTHROUGH PAIN Non-Formulary Medication (Cholecalciferol (Vitamin D3) [Vitamin D3]) 1,000 unit PO DAILY [facility] Non-Formulary Medication (Cyanocobalamin (Vitamin B-12) [Vitamin B-12]) 2,000 mcg PO DAILY [facility] Non-Formulary Medication (Folic Acid [Folic Acid]) 0.8 mg PO DAILY [facility] Non-Formulary Medication (Olmesartan-Hydrochlorothiazide [Olmesartan- Hydrochlorothiazide]) 0.5 tab PO DAILY [facility] Non-Formulary Medication (Omeprazole [Omeprazole]) 40 mg PO DAILY ANTHONY Ondansetron HCl (Zofran Odt) 4 mg PO Q6H PRN PRN Reason: NAUSEA OR VOMITING Povidone Iodine (Betadine 5% Antisepsis Kit) 1 applicatio EACH NARE DANCE INSTRUCTOR [facility] Stop: 10/17/17 11:30 Last Admin: 10/14/17 11:42 Dose: Not Given Pravastatin Sodium (Pravachol) 20 mg PO HS [facility] Senna/Docusate Sodium (Masha-Colace) 1 tab PO BID [facility] Sennosides (Senokot) 17.2 mg PO BID PRN PRN Reason: Moderate Constipation Sodium Chloride (Ns Flush) 2 ml IV.FLUSH BID [facility] Sodium Chloride (Ns Flush) 2 ml IV.FLUSH PRN PRN PRN Reason: FLUSH AFTER USING IV ACCESS Zolpidem Tartrate (Ambien) 5 mg PO HS PRN PRN Reason: INSOMNIA Allergies Allergy/AdvReac Type Severity Reaction Status Date / Time chlorhexidine Allergy Severe Rash, Verified 10/14/17 11:22 Generalized hydroxychloroquine Allergy Rash Verified 10/14/17 11:22 Home Medications Medication Instructions Recorded Confirmed Type aspirin [Ecotrin Low Strength] 81 mg PO DAILY 09/05/17 10/14/17 History cholecalciferol (vitamin D3) 1,000 unit PO DAILY 09/05/17 10/14/17 History [Vitamin D3] coQ10 (ubiquinol) 200 mg PO DAILY 09/05/17 10/14/17 History cyanocobalamin (vitamin B-12) 2,000 mcg PO DAILY 09/05/17 10/14/17 History [Vitamin B-12] duloxetine 60 mg PO DAILY 09/05/17 10/14/17 History ezetimibe 10 mg PO DAILY 09/05/17 10/14/17 History folic acid 0.8 mg PO DAILY 09/05/17 10/14/17 History methylprednisolone 4 mg PO DAILY 09/05/17 10/14/17 History olmesartan-hydrochlorothiazide 0.5 tab PO DAILY 09/05/17 10/14/17 History omega 3-ufz-uvd-fish oil [[place]-3] 1 cap PO DAILY 09/05/17 10/14/17 History omeprazole 40 mg PO DAILY 09/05/17 10/14/17 History pravastatin 20 mg PO HS 09/05/17 10/14/17 History Exam Vital signs: Vital Signs 10/14/17 11:32 10/14/17 16:40 10/14/17 17:00 Temperature 97.7 F 97.3 F L Pulse Rate 72 74 69 Respiratory Rate 20 18 15 Blood Pressure 121/78 106/61 Pulse Oximetry 95 94 L 96 10/14/17 17:15 10/14/17 17:30 Temperature Pulse Rate 72 71 Respiratory Rate 20 16 Blood Pressure 122/58 L 116/60 Pulse Oximetry 96 96 Intake & Output 10/13/17 10/14/17 10/14/17 18:59 06:59 18:59 Intake Total 2608.86 / 2608.86 Output Total 200 / 200 Balance 2408.86 / 2408.86 Weight 88.6 kg Intake: IV 108.86 / 108.86 Cyklokapron Inj 886 MG In NS 108.86 / 108.86 Inj 100 ML @ 200 mls/hr IV.SIG ONCE ANTHONY Rx#:[id number] Anesthesia Amount 2500 / 2500 Output: Estimated Blood Loss 200 / 200 Other: Weight On Admission 88.6 kg Narrative: GENERAL: NAD, A&Ox3 HEAD: Normocephalic. NECK: Supple, trachea midline. No lymphadenopathy. EYES: No scleral icterus. No injection or drainage. CARDIOVASCULAR: Regular rate and rhythm without murmurs, gallops, or rubs. RESPIRATORY: Breath sounds equal bilaterally. No accessory muscle use. GASTROINTESTINAL: Abdomen soft, non-tender, nondistended. MUSCULOSKELETAL: No cyanosis, or edema. Arthritic changes in distal joints. Decreased ROM at pelvis (post op) SKIN: Warm and dry. NEURO: No focal neurological deficits. Results - Labs Labs: Laboratory Results - last 24 hr 10/14/17 10:30 Blood Type A Positive Antibody Screen Negative - Imaging Impressions Hip X-Ray 10/14/17 16:28 CONCLUSION: Postsurgical changes as above. Assessment and Plan - Plan 77-year-old male admitted for elective hip replacement surgery Status post hip replacement surgery Doing well postop Bedrest for now CBC in a.m. Physical therapy as recommended by orthopedic surgeons Orthopedic surgeons following Hypertension Continue baseline treatment Follow blood pressures Adjust treatments as needed Hyperlipidemia Continue present treatment Follow as an outpatient Rheumatoid arthritis Continue baseline treatments Follow clinically DVT prophylaxis Per orthopedic surgeon discretion
[2017-10-14] MEDS: Ketorolac Inj 30 MG/ML (IVP) Vial IV.PUSH SCH (20:14)
[2017-10-14] MEDS: Senna/Docusate Sodium 8.6/50 MG Tablet PO SCH (20:16)
[2017-10-14] MEDS ORDERED: Zolpidem Tartrate 5 MG Tablet PO PRN (21:00)
[2017-10-15] MEDS: Ketorolac Inj 30 MG/ML (IVP) Vial IV.PUSH SCH ×3 (01:25→12:25)
--- NOTE | 2017-10-15 07:14 | P.PNOP ---
Subjective Interval history: Postop day #1 He is doing well. He has minimal complaints related to his hip at this time. He has not been out of bed yet. Physical therapy did not see the patient yesterday. Physical Exam Vital signs: Vital Signs 10/14/17 11:32 10/14/17 16:40 10/14/17 17:00 Temperature 97.7 F 97.3 F L Pulse Rate 72 74 69 Respiratory Rate 20 18 15 Blood Pressure 121/78 106/61 Pulse Oximetry 95 94 L 96 10/14/17 17:15 10/14/17 17:30 10/14/17 20:00 Temperature 97.2 F L Pulse Rate 72 71 68 Respiratory Rate 20 16 18 Blood Pressure 122/58 L 116/60 111/57 L Pulse Oximetry 96 96 95 10/14/17 20:44 10/14/17 20:45 10/15/17 00:00 Temperature 97.3 F L Pulse Rate 72 Respiratory Rate 18 18 18 Blood Pressure 122/58 L Pulse Oximetry 100 10/15/17 01:05 10/15/17 04:00 10/15/17 05:13 Temperature 97.3 F L Pulse Rate 72 Respiratory Rate 18 17 18 Blood Pressure 128/68 Pulse Oximetry 99 Intake & Output 10/14/17 10/15/17 10/15/17 18:59 06:59 18:59 Intake Total 2787.72 / 2787.72 100 / 100 Output Total 200 / 200 200 / 200 Balance 2587.72 / 2587.72 -100 / -100 Weight 88.6 kg Intake: IV 217.72 / 217.72 100 / 100 Cyklokapron Inj 886 MG In NS 217.72 / 217.72 Inj 100 ML @ 200 mls/hr IV.SIG ONCE ANTHONY Rx#:[id number] Ancef Inj 1,000 MG In NS Inj 100 / 100 100 ML @ 200 mls/hr IV.SIG Q6H ANTHONY Rx#:[id number] Anesthesia Amount 2570 / 2570 Output: Urine 200 / 200 Estimated Blood Loss 200 / 200 Other: Date of Last Bowel Movement 10/13/17 10/13/17 Weight On Admission 88.6 kg Narrative: He is resting comfortably, supine in bed. The neurovascular status is intact. The dressing is dry and intact. Results - Labs Laboratory Results - last 24 hr 10/14/17 10:30 Blood Type A Positive Antibody Screen Negative - Imaging Impressions Hip X-Ray 10/14/17 16:28 CONCLUSION: Postsurgical changes as above. - Procedures Left total hip arthroplasty using [place] prosthesis on 10/14/2017 Assessment and Plan - Ortho Post Op Day # 1 - Problem List (1) Status post total replacement of left hip Code(s): Z96.642 - Presence of left artificial hip joint Status: Acute Plan: Continue postop care and PT - Assessment and Plan Condition: Good. Orthopedically stable. DVT prophylaxis: TEDs, aspirin, sequentials. Discharge plans: Home with home health care. An appointment was scheduled through the office. Prescriptions: [place] 7.5/325; Patient is having significant pain caused by a total hip arthroplasty which will last more than 3 days. Trial of Tylenol has not helped. I believe that it is medically necessary to treat patients pain because it is affecting patients ability to participate in postoperative rehabilitation and perform activities of daily living in a comfortable and efficient manner.
--- NOTE | 2017-10-15 08:04 | P.DS ---
Date of admission: 10/14/17 16:28 Primary care physician: Yousif Brock MD Attending physician on discharge: Michael Smith Anticipated date of discharge: 10/15/17 Brief History from admission: This 77-year-old man has had long-standing left hip that has been progressively worsening at least over the past 8-10 months. He has not responded to conservative measures including anti-inflammatory agents, analgesics, activity modification and ambulatory aids. Physical findings showed a significantly antalgic gait with pain on motion. X-rays showed severe osteoarthritis with loss of joint space, loss of sphericity of the femoral head, osteophytes and eburnation. Compared to previous x-rays, there is significant progression of arthritis. DS: Diagnosis - Discharge Diagnosis (1) Status post total replacement of left hip Status: Acute Diagnosis: Principal (2) Primary osteoarthritis of left hip Status: Chronic Diagnosis: Principal DS: Medications - Discharge Medications Prescriptions: hydrocodone-acetaminophen 1 tab PO Q4H PRN 7 Days #42 tab PRN Reason: Pain, Severe DS: Summary Hospital Course: The patient was admitted as noted above. The above noted operative procedure was carried out that day. Preoperatively prophylactic antibiotics were administered Ancef according to protocol. These were continued postoperatively. The patient also received tranexamic acid to help with hemostasis according to protocol. In the postanesthesia care unit mechanical methods of DVT prophylaxis in the form of SASCHA stockings and sequentials were initiated. Physical therapy was initiated on the day of surgery. On postoperative day #1 physical therapy continued. DVT prophylaxis with aspirin 81 mg twice daily was initiated at this time. The patient continued physical therapy throughout the hospitalization. The distance walked and range of motion improved throughout the hospitalization. The patient was discharged on postoperative day 1 with the disposition being to home with home health care. An appointment for follow-up was made prior to admission. - Time Spent with Patient Total time spent providing and/or coordinating discharge services: Greater than 30 minutes - Quality: VTE Deep Vein Thrombosis/Pulmonary Embolism Present on Admission: No Exam Vital signs: Vital Signs 10/14/17 11:32 10/14/17 16:40 10/14/17 17:00 Temperature 97.7 F 97.3 F L Pulse Rate 72 74 69 Respiratory Rate 20 18 15 Blood Pressure 121/78 106/61 Pulse Oximetry 95 94 L 96 10/14/17 17:15 10/14/17 17:30 10/14/17 20:00 Temperature 97.2 F L Pulse Rate 72 71 68 Respiratory Rate 20 16 18 Blood Pressure 122/58 L 116/60 111/57 L Pulse Oximetry 96 96 95 10/14/17 20:44 10/14/17 20:45 10/15/17 00:00 Temperature 97.3 F L Pulse Rate 72 Respiratory Rate 18 18 18 Blood Pressure 122/58 L Pulse Oximetry 100 10/15/17 01:05 10/15/17 04:00 10/15/17 05:13 Temperature 97.3 F L Pulse Rate 72 Respiratory Rate 18 17 18 Blood Pressure 128/68 Pulse Oximetry 99 10/15/17 07:50 Temperature 98.0 F Pulse Rate 56 L Respiratory Rate 18 Blood Pressure 111/59 L Pulse Oximetry 94 L Intake & Output 10/14/17 10/15/17 10/15/17 18:59 06:59 18:59 Intake Total 2787.72 / 2787.72 100 / 100 Output Total 200 / 200 200 / 200 Balance 2587.72 / 2587.72 -100 / -100 Weight 88.6 kg Intake: IV 217.72 / 217.72 100 / 100 Cyklokapron Inj 886 MG In NS 217.72 / 217.72 Inj 100 ML @ 200 mls/hr IV.SIG ONCE ANTHONY Rx#:[id number] Ancef Inj 1,000 MG In NS Inj 100 / 100 100 ML @ 200 mls/hr IV.SIG Q6H ANTHONY Rx#:[id number] Anesthesia Amount 2570 / 2570 Output: Urine 200 / 200 Estimated Blood Loss 200 / 200 Other: Date of Last Bowel Movement 10/13/17 10/13/17 Weight On Admission 88.6 kg Narrative: He is resting comfortably, supine in bed. The dressing is dry and intact. The neurovascular status is intact. Results Procedures completed during hospitalization: Left total hip arthroplasty using [place] prosthesis on 10/14/2017 Labs on day of discharge: Labs from last 24 hours 10/14/17 10:30 Blood Type A Positive Antibody Screen Negative - Impressions ITS Impressions Hip X-Ray 10/14/17 16:28 CONCLUSION: Postsurgical changes as above. Discharge Plan - Discharge Disposition Patient Disposition: /Home Health Service - Discharge Condition Condition: Stable - Discharge Order Discharge Orders: Discharge Order (Routine); Ordered 10/15/17 Ordered By: Michael Smith - Discharge Details Anticipated Discharge Date: 10/15/17 - Physicians Team Primary Care Provider: Yousif Brock Attending Provider: Michael Smith Other Providers: Landry Rodarte MD ; [facility] [place], - Rxs /Orders / Referrals /Forms Prescriptions: New aspirin 81 mg Tablet,Delayed Release (Dr/Ec) 81 mg PO BID RF: 0 hydrocodone-acetaminophen 7.5-325 mg Tablet 1 tab PO Q4H PRN (Reason: Pain, Severe) 7 Days Qty: 42 RF: 0 Continue cholecalciferol (vitamin D3) [Vitamin D3] 1,000 unit Capsule 1,000 unit PO DAILY coQ10 (ubiquinol) 200 mg Capsule 200 mg PO DAILY cyanocobalamin (vitamin B-12) [Vitamin B-12] 2,000 mcg Tablet Extended Release 2,000 mcg PO DAILY duloxetine 30 mg Capsule,Delayed Release(Dr/Ec) 60 mg PO DAILY ezetimibe 10 mg Tablet 10 mg PO DAILY folic acid 800 mcg Tablet 0.8 mg PO DAILY methylprednisolone 4 mg Tablet 4 mg PO DAILY olmesartan-hydrochlorothiazide 40-12.5 mg Tablet 0.5 tab PO DAILY omega 3-orh-bug-fish oil [[place]-3] 350 mg-235 mg- 90 mg-597 mg Capsule, Delayed Release(Dr/Ec) 1 cap PO DAILY omeprazole 40 mg Capsule,Delayed Release(Dr/Ec) 40 mg PO DAILY pravastatin 20 mg Tablet 20 mg PO HS Discontinued aspirin [Ecotrin Low Strength] 81 mg Tablet,Delayed Release (Dr/Ec) 81 mg PO DAILY Referrals: Michael Smith MD [Physician] - See Instructions ( If you cannot make your scheduled appointment, please call the office to reschedule ) Yousif Brock MD [Primary Care Provider] - See Instructions ( Please call the physician's office to book the appointment to be seen when discharged. ) - Discharge Instructions Patient Printed Instructions: How to Use an Incentive Spirometer (DC), Narcotic Pain Management (DC), Precautions after Total Joint Replacement Surgery (ED), Total Hip Replacement (DC) Additional Instructions: Keep or make your follow up appointments as recommended by your providers. Take medications as directed. Keep base dressing in place, you may cover with dry dressing. Continue to use incentive spirometer after discharge. Continue to use CKS brace when sleeping. - Post Discharge Care Plan Care Plan Goals: Discharge Care Plan Goals for Total Hip Replacement You had a hip replacement surgery. This means your natural hip was replaced with an artificial joint (prosthesis). You may be recovering at home or in a rehabilitation facility. Either way, you must take care of your new hip. Here are some goals to help you heal well. Directions to Meet your Goals: 1. Activity & Exercises: * Take pain medicine as directed by your doctor. * Dont drive until your doctor says its OK. And never drive while taking opioid pain medicine. * Wear the support stockings you were given in the hospital as directed by your surgeon. * Dont sit for more than 30 to 45 minutes at one time. * Dont lean forward while sitting. * Dont cross your legs. * Keep your feet flat on the floor. Dont turn your foot or leg inward. This stresses your hip joint. * Use an elevated toilet seat for 6 weeks after surgery. * Nap if you are tired, but dont stay in bed all day. * Sit on a firm cushion when you ride in a car and avoid sitting too low. Try not to bend your hip too much when getting in and out of the car. 2. Prevent Falls/Injury: * Follow your doctors orders regarding how much weight to put on the affected leg. * Dont bend at the hip when you bend over. Don't bend at the waist to put on socks and shoes. And avoid picking up items from the floor. * Use a cane, crutches, a walker, or handrails until your balance, flexibility, and strength improve. And remember to ask for help from others when you need it. * Free up your hands so that you can use them to keep balance. Use a ryan pack , apron, or pockets to carry things. * Arrange your household to keep the items you need handy. Keep everything else out of the way. * Remove items that may cause you to fall, such as throw rugs and electrical cords. * Use nonslip bath mats, grab bars, an elevated toilet seat, and a shower chair in your bathroom * Sit on a shower stool or chair when you shower to keep from falling. 3. Precautions: * Prevent infection. Any infection will need to be treated immediately. Call your doctor right away if you think you might have an infection. * Tell your dentist that you have an artificial joint and take antibiotics as prescribed before any dental work. * Tell all your healthcare providers about your artificial joint before any medical procedure. * Maintain a healthy weight. Get help to lose any extra pounds. Added body weight puts stress on the joints. 4. Incision Care: * Prevent infection by washing your hands often. If an infection occurs, it will need to be treated right away. * Call your doctor right away if you think you may have an infection. Symptoms include a fever or an incision that leaks white, green, or yellow fluid. * Don't soak your incision in water until your doctor says its OK. This means no hot tubs, bathtubs, or swimming pools. * Follow your doctor's instructions for changing the dressing. * Dont rub the incision, or apply creams or lotions to it. * If you notice any redness or drainage around the bandage site, contact your surgeon's office immediately. 5. Follow-Up: Do Not miss your follow-up appointment. Keep up with all your appointments and yearly check ups When to call your doctor: Call your doctor right away if you have: Hip pain gets worse Pain or swelling in your calf or leg not related to your incision Tenderness or redness in your calf Fever of 100.4F (38C) or higher, or as directed by your healthcare provider Shaking chills Swelling or redness at the incision site gets worse Fluid draining from the incision Call 911: Call 911 right away if you have: Chest pain Shortness of breath Any pain or tenderness in your calf
[2017-10-15] MEDS: Senna/Docusate Sodium 8.6/50 MG Tablet PO SCH (08:40)
--- NOTE | 2017-10-15 08:51 | P.PN ---
Subjective Interval history: Follow-up visit for left hip arthroplasty, HTN, HLD and RA. Patient seen and examined resting in bed comfortably with nurse at bedside in no acute distress. Reports that pain is well controlled, rates pain 3/10. He denies any shortness of breath, cough, fevers, chills, nausea, vomiting or dysuria. Physical Exam Vital signs: Vital Signs 10/14/17 11:32 10/14/17 16:40 10/14/17 17:00 Temperature 97.7 F 97.3 F L Pulse Rate 72 74 69 Respiratory Rate 20 18 15 Blood Pressure 121/78 106/61 Pulse Oximetry 95 94 L 96 10/14/17 17:15 10/14/17 17:30 10/14/17 20:00 Temperature 97.2 F L Pulse Rate 72 71 68 Respiratory Rate 20 16 18 Blood Pressure 122/58 L 116/60 111/57 L Pulse Oximetry 96 96 95 10/14/17 20:44 10/14/17 20:45 10/15/17 00:00 Temperature 97.3 F L Pulse Rate 72 Respiratory Rate 18 18 18 Blood Pressure 122/58 L Pulse Oximetry 100 10/15/17 01:05 10/15/17 04:00 10/15/17 05:13 Temperature 97.3 F L Pulse Rate 72 Respiratory Rate 18 17 18 Blood Pressure 128/68 Pulse Oximetry 99 10/15/17 07:50 Temperature 98.0 F Pulse Rate 56 L Respiratory Rate 18 Blood Pressure 111/59 L Pulse Oximetry 94 L Intake & Output 10/14/17 10/15/17 10/15/17 18:59 06:59 18:59 Intake Total 2787.72 / 2787.72 100 / 100 600 / 600 Output Total 200 / 200 200 / 200 Balance 2587.72 / 2587.72 -100 / -100 600 / 600 Weight 88.6 kg Intake: IV 217.72 / 217.72 100 / 100 600 / 600 LR 1000 mL Inj 1,000 ML @ 30 500 / 500 mls/hr IV.SIG .Q24H ANTHONY Rx#: [id number] Cyklokapron Inj 886 MG In NS 217.72 / 217.72 Inj 100 ML @ 200 mls/hr IV.SIG ONCE ANTHONY Rx#:[id number] Ancef Inj 1,000 MG In NS Inj 100 / 100 100 / 100 100 ML @ 200 mls/hr IV.SIG Q6H ANTHONY Rx#:[id number] Anesthesia Amount 2570 / 2570 Output: Urine 200 / 200 Estimated Blood Loss 200 / 200 Other: Date of Last Bowel Movement 10/13/17 10/13/17 Weight On Admission 88.6 kg Narrative: GENERAL: NAD, A&Ox3 HEAD: Normocephalic. NECK: Supple, trachea midline. EYES: No scleral icterus. No injection or drainage. CARDIOVASCULAR: Regular rate and rhythm without murmurs. RESPIRATORY: Breath sounds equal bilaterally. No accessory muscle use. GASTROINTESTINAL: Abdomen soft, non-tender, nondistended. MUSCULOSKELETAL: No cyanosis, or edema. Arthritic changes in distal joints. Left hip dressing dry and intact. SKIN: Warm and dry. NEURO: No focal neurological deficits. Results - Labs CBC & Chem 7: 10/15/17 11:19 10/15/17 11:19 Laboratory Results - last 24 hr 10/14/17 10:30 Blood Type A Positive Antibody Screen Negative - Imaging Impressions Hip X-Ray 10/14/17 16:28 CONCLUSION: Postsurgical changes as above. - Procedures Left total hip arthroplasty using Juan J prosthesis on 10/14/2017 Assessment and Plan - Plan 77-year-old male admitted for elective hip replacement surgery Status post hip replacement surgery 04/16 pos-op day one PT/OT as recommended by orthopedic surgeons Pain control with p.o. Girma Orthopedic surgeons following Repeat H&H stable Hypertension Continue hydrochlorothiazide 6.25 mg daily Follow blood pressures Adjust treatments as needed Hyperlipidemia Continue Zetia 10 mg daily Follow as an outpatient Rheumatoid arthritis Continue baseline treatments Follow clinically DVT prophylaxis-aspirin BID Discussed Condition With: Patient and RN
[2017-10-15] MEDS ORDERED: Folic Acid 1 MG Tablet PO SCH (09:00)
[2017-10-15] MEDS ORDERED: hydroCHLOROthiazide 25 MG Tablet PO SCH (09:00)
[2017-10-15] MEDS ORDERED: OLMESARTAN PO SCH (09:00)
[2017-10-15] MEDS ORDERED: Ezetimibe 10 MG Tablet PO SCH (09:00)
[2017-10-15] MEDS ORDERED: Non-Formulary Drug (Coq10 (Ubiquinol) [Coq10 (Ubiquinol)] 200 MG) PO SCH (09:00)
[2017-10-15] MEDS ORDERED: Duloxetine 60 MG DR Capsule PO SCH (09:00)
[2017-10-15] MEDS ORDERED: HYDROCHLOROTHIAZIDE PO SCH (09:00)
[2017-10-15] MEDS ORDERED: [UNRECOGNIZED DRUG - OTHER] PO SCH (09:00)
[2017-10-15] MEDS ORDERED: Non-Formulary Drug (Omega 3-Dha-Epa-Fish Oil [Omega-3] 1 CAP) PO SCH (09:00)
[2017-10-15 11:46] LABS: Baso % (Auto) 0.3 % (0.0-2.0); Eos # (Auto) 0.3 th/mm3 (0.0-0.4); Eos % (Auto) 3.4 % (0.0-4.0); Hemoglobin 14.2 gm/dL (13.0-17.0); Lymph # (Auto) 0.4 th/mm3 (1.0-4.8); Mean Corpuscular HGB Conc 32.3 % (32.0-36.0); Mean Corpuscular Hemoglobin 30.8 pg (27.0-34.0); Mean Corpuscular Volume 95.4 fL (80.0-100.0); Mean Platelet Volume 6.9 fL (7.0-11.0); Mono # (Auto) 0.9 th/mm3 (0.0-0.9); Mono % (Auto) 10.6 % (0.0-8.0); Neut # (Auto) 7.2 th/mm3 (1.8-7.7); Neut % (Auto) 80.7 % (16.0-70.0); Platelet Count 277 th/mm3 (150-450); Red Blood Count 4.62 mil/mm3 (4.50-5.90); Red Cell Distribution Width 14.2 % (11.6-17.2); White Blood Count 8.9 th/mm3 (4.0-11.0)
[2017-10-15 11:56] VITALS: BP 119/57; PULSE 69; RESP 17; TEMP 97.9; O2SAT 96
[2017-10-15 12:15] LABS: Alanine Aminotransferase 24 U/L (12-78); Alkaline Phosphatase 67 U/L (45-117); Total Protein 6.4 g/dL (6.4-8.2)
[2017-10-15 12:25] LABS: Anion Gap 9 meq/L (5-15); Aspartate Aminotransferase 31 U/L (15-37); Blood Urea Nitrogen 17 mg/dL (7-18); Calcium 8.4 mg/dL (8.5-10.1); Carbon Dioxide 26.7 meq/L (21.0-32.0); Chloride 99 meq/L (98-107); Glomerular Filtration Rate 75 mL/min (>89); Glucose,Random 106 mg/dL (74-106); Potassium 4.1 meq/L (3.5-5.1); Sodium 135 meq/L (136-145)
== END 2017-10-15 14:25 | disposition home health service (06) ==
LOC: HSDC 10:45 → EDSTATUS 13:00 → HSDI 16:28 → N06 18:23
PROVIDERS: ADMIT Orthopaedic Surgery; ATTEND Orthopaedic Surgery

== ENCOUNTER 2018-02-14 12:15 | Inpatient (IN) ==
--- NOTE | 2018-02-14 12:36 | ED ---
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 According to paramedics the patient woke up this morning and seemed confused, having difficulty answering simple questions for his . By the time paramedics arrived at 11:30 AM his symptoms had resolved. They do note that he had an axillary temperature of 100 degrees. The patient reports that he has had some myalgias over the past few days. He does have a slight cough. He does remember being confused and having difficulty finding words this morning but he now seems back to his baseline. He is currently complaining of left knee pain which is chronic but worse today. Pain is worse when ambulating. He denies any acute injury. He does note that he started on methotrexate 4 days ago from his client representative Dr. Betancourt. PCP Dr. Luque. Related Data Home Medications Medication Instructions Recorded Confirmed cholecalciferol (vitamin D3) 1,000 unit PO DAILY 09/05/17 02/14/18 [Vitamin D3] coQ10 (ubiquinol) 200 mg PO DAILY 09/05/17 02/14/18 cyanocobalamin (vitamin B-12) 2,000 mcg PO DAILY 09/05/17 02/14/18 [Vitamin B-12] duloxetine 60 mg PO DAILY 09/05/17 02/14/18 ezetimibe 10 mg PO DAILY 09/05/17 02/14/18 folic acid 0.8 mg PO DAILY 09/05/17 02/14/18 methylprednisolone 4 mg PO DAILY 09/05/17 02/14/18 olmesartan-hydrochlorothiazide 0.5 tab PO DAILY 09/05/17 02/14/18 omega 9-zlr-crn-fish oil [Cambridge-3] 1 cap PO DAILY 09/05/17 02/14/18 omeprazole 40 mg PO DAILY 09/05/17 02/14/18 pravastatin 20 mg PO HS 09/05/17 02/14/18 Previous Rx's Medication Instructions Recorded aspirin 81 mg PO BID tab 10/14/17 Allergies Allergy/AdvReac Type Severity Reaction Status Date / Time chlorhexidine Allergy Severe Rash, Verified 02/14/18 12:37 Generalized hydroxychloroquine Allergy Rash Verified 02/14/18 12:37 Review of Systems ROS: all other systems reviewed are negative PMFSH Social History Social History Substance History: No History of Abuse Second Hand Smoke Exposure: No Smoking Status: Former smoker Tobacco Type: Cigars How Often Do You Have a Drink Containing Alcohol: 2 to 4 times a month Recent Travel in [facility] within the Last 8 Weeks: No Recent Out of Country Travel within the Last 8 Weeks: No Immunization History Tetanus Immunization: Unsure Exam Narrative Exam Narrative: GENERAL: Well-developed well-nourished male in no acute distress answering questions appropriately SKIN: Warm and dry. Abrasion is noted on the anterior left ankle. HEAD: Atraumatic. Normocephalic. EYES: Pupils equal and round. No scleral icterus. No injection or drainage. ENT: No nasal bleeding or discharge. Mucous membranes pink and moist. NECK: Trachea midline. No JVD. CARDIOVASCULAR: Regular rate and rhythm. No murmur appreciated. RESPIRATORY: No accessory muscle use. Clear to auscultation. Breath sounds equal bilaterally. GASTROINTESTINAL: Abdomen soft, non-tender, nondistended. Hepatic and splenic margins not palpable. MUSCULOSKELETAL: There is tenderness to palpation to the left knee with a knee effusion. The knee itself is not erythematous but it is warm, there are no open wounds on the knee. There is no overlying cellulitis. There is certainly pain with flexion and extension of left knee which is limited. NEUROLOGICAL: Awake and alert. No obvious cranial nerve deficits. Motor grossly within normal limits. Normal speech. Course Initial Documented Vital Signs Temperature 99.1 F 02/14/18 12:27 Pulse Rate 90 02/14/18 12:27 Respiratory Rate 18 02/14/18 12:27 Blood Pressure 137/64 02/14/18 12:27 Pulse Oximetry 96 02/14/18 12:27 Last Documented Vital Signs Temperature 99.1 F 02/14/18 12:27 Pulse Rate 74 02/14/18 15:00 Respiratory Rate 18 02/14/18 15:00 Blood Pressure 135/60 02/14/18 15:00 Pulse Oximetry 97 02/14/18 15:00 Medical Decision Making JESUS ALBERTO Attestation JESUS ALBERTO supervised visit: Yes Attestation: I, Dr. Engel, have reviewed the advance practice practitioner's documentation and am in agreement, met with the patient face to face, made the diagnosis, and the medical decision making was done by me. *My assessment and Findings: Possible TIA and left septic knee. Patient be admitted to the hospital. He has had interventional radiology tap the knee and call was that there was purulent drainage from the knee joint. He will be started on antibiotics. Case was discussed with Dr. SHARON Smith, orthopedic surgeon who performed the knee replacement. Dr. Smith will see the patient in consultation will likely take him to the operating room and washed him out. The patient will be admitted to the resident service under Dr. Cecilio Barba. MDM Narrative Medical decision making narrative: Lab work was obtained, chest x-ray, CT brain , left knee x-ray were obtained. Lab work demonstrates leukocytosis. X-ray of the left knee reveals a moderate joint effusion. CRP is greater than 20. The concern is certainly for a septic left knee joint and given the total knee replacement, plan is to have interventional radiology perform arthrocentesis. After the left knee arthrocentesis was performed the patient was started on vancomycin and cefepime. Dr. Engel was able to speak to his orthopedist Dr. Smith who will be happy to consult on the case, he will come and see the patient at bedside. Discussed with the residents were agreeable with admission to Dr. Barba. Medical Screen Exam Complete: Yes Emergency Medical Condition: Yes Differential Diagnosis Differential Diagnosis: TIA, CVA, sepsis, hypoglycemic event, pneumonia, influenza Lab Data Result diagrams: 02/14/18 12:35 02/14/18 12:35 Lab Results 02/14/18 02/14/18 02/14/18 Range/Units 12:35 12:35 12:35 WBC 19.1 H (4.0-11.0) th/mm3 RBC 4.83 (4.50-5.90) mil/mm3 Hgb 15.1 (13.0-17.0) gm/dL Hct 43.8 (39.0-51.0) % MCV 90.6 (80.0-100.0) fL MCH 31.3 (27.0-34.0) pg MCHC 34.5 (32.0-36.0) % RDW 14.5 (11.6-17.2) % Plt Count 288 (150-450) th/mm3 MPV 6.8 L (7.0-11.0) fL Prelim Diff (Auto) Slide review pending Neut % (Auto) 82.1 H (16.0-70.0) % Lymph % (Auto) 6.0 L (9.0-44.0) % Glades % (Auto) 11.8 H (0.0-8.0) % Eos % (Auto) 0.0 (0.0-4.0) % Baso % (Auto) 0.1 (0.0-2.0) % Neut # (Auto) 15.7 H (1.8-7.7) th/mm3 Lymph # (Auto) 1.2 (1.0-4.8) th/mm3 Glades # (Auto) 2.2 H (0.0-0.9) th/mm3 Eos # (Auto) 0.0 (0.0-0.4) th/mm3 Baso # (Auto) 0.0 (0.0-0.2) th/mm3 WBC Differential Manual diff final Seg Neuts % (Manual) 86 H (16-70) % Band Neuts % (Manual) 1 (0-6) % Lymphocytes % (Manual) 5 L (9-44) % Monocytes % (Manual) 8 (0-8) % Abs Neuts (Manual) 16.6 H (1.8-7.7) th/mm3 Differential Comment . Platelet Estimate Normal (Normal) Platelet Morphology Normal (Normal) RBC Morphology Normal (Normal) ESR (0-20) mm/hr PT 11.4 (9.8-11.6) sec INR 1.1 Ratio APTT (23.4-31.7) sec Sodium 132 L (136-145) meq/L Potassium 3.7 (3.5-5.1) meq/L Chloride 95 L (98-107) meq/L Carbon Dioxide 28.9 (21.0-32.0) meq/L Anion Gap 8 (5-15) meq/L BUN 20 H (7-18) mg/dL Creatinine 1.25 (0.60-1.30) mg/dL Estimated GFR 56 L (>89) mL/min Random Glucose 104 (74-106) mg/dL Lactic Acid (0.4-2.0) mmol/L Calcium 9.0 (8.5-10.1) mg/dL Total Bilirubin 1.0 (0.2-1.0) mg/dL AST 37 (15-37) U/L ALT 31 (12-78) U/L Alkaline Phosphatase 66 (45-117) U/L Total Creatine Kinase (39-308) U/L CK-MB (CK-2) (0.5-3.6) ng/mL CK-MB (CK-2) % (0.0-4.0) % C-Reactive Protein (0.00-0.30) mg/dL Total Protein 8.1 (6.4-8.2) g/dL Albumin 3.2 L (3.4-5.0) g/dL Urine Color (Yellw/Straw) Urine Clarity (Clear) Urine pH (5.0-8.5) Ur Specific Amelia (1.002-1.035) Urine Protein (Neg-Trace) mg/dL Urine Glucose (UA) (Negative) mg/dL Urine Ketones (Negative) mg/dL Urine Occult Blood (Negative) Urine Nitrate (Negative) Urine Bilirubin (Negative) Urine Urobilinogen (Less than 2) mg/dL Ur Leukocyte Esterase (Negative) Urine RBC (0-3) /hpf Urine WBC (0-5) /hpf Micro UA Comment Ur Microscopic Review Urine Culture Comments 02/14/18 02/14/18 02/14/18 Range/Units 12:35 12:35 12:35 WBC (4.0-11.0) th/mm3 RBC (4.50-5.90) mil/mm3 Hgb (13.0-17.0) gm/dL Hct (39.0-51.0) % MCV (80.0-100.0) fL MCH (27.0-34.0) pg MCHC (32.0-36.0) % RDW (11.6-17.2) % Plt Count (150-450) th/mm3 MPV (7.0-11.0) fL Prelim Diff (Auto) Neut % (Auto) (16.0-70.0) % Lymph % (Auto) (9.0-44.0) % Glades % (Auto) (0.0-8.0) % Eos % (Auto) (0.0-4.0) % Baso % (Auto) (0.0-2.0) % Neut # (Auto) (1.8-7.7) th/mm3 Lymph # (Auto) (1.0-4.8) th/mm3 Glades # (Auto) (0.0-0.9) th/mm3 Eos # (Auto) (0.0-0.4) th/mm3 Baso # (Auto) (0.0-0.2) th/mm3 WBC Differential Seg Neuts % (Manual) (16-70) % Band Neuts % (Manual) (0-6) % Lymphocytes % (Manual) (9-44) % Monocytes % (Manual) (0-8) % Abs Neuts (Manual) (1.8-7.7) th/mm3 Differential Comment Platelet Estimate (Normal) Platelet Morphology (Normal) RBC Morphology (Normal) ESR (0-20) mm/hr PT (9.8-11.6) sec INR Ratio APTT 35.9 H (23.4-31.7) sec Sodium (136-145) meq/L Potassium (3.5-5.1) meq/L Chloride (98-107) meq/L Carbon Dioxide (21.0-32.0) meq/L Anion Gap (5-15) meq/L BUN (7-18) mg/dL Creatinine (0.60-1.30) mg/dL Estimated GFR (>89) mL/min Random Glucose (74-106) mg/dL Lactic Acid 1.7 (0.4-2.0) mmol/L Calcium (8.5-10.1) mg/dL Total Bilirubin (0.2-1.0) mg/dL AST (15-37) U/L ALT (12-78) U/L Alkaline Phosphatase (45-117) U/L Total Creatine Kinase 709 H (39-308) U/L CK-MB (CK-2) 3.4 (0.5-3.6) ng/mL CK-MB (CK-2) % 0.5 (0.0-4.0) % C-Reactive Protein (0.00-0.30) mg/dL Total Protein (6.4-8.2) g/dL Albumin (3.4-5.0) g/dL Urine Color (Yellw/Straw) Urine Clarity (Clear) Urine pH (5.0-8.5) Ur Specific Amelia (1.002-1.035) Urine Protein (Neg-Trace) mg/dL Urine Glucose (UA) (Negative) mg/dL Urine Ketones (Negative) mg/dL Urine Occult Blood (Negative) Urine Nitrate (Negative) Urine Bilirubin (Negative) Urine Urobilinogen (Less than 2) mg/dL Ur Leukocyte Esterase (Negative) Urine RBC (0-3) /hpf Urine WBC (0-5) /hpf Micro UA Comment Ur Microscopic Review Urine Culture Comments 02/14/18 02/14/18 02/14/18 Range/Units 12:35 12:35 15:03 WBC (4.0-11.0) th/mm3 RBC (4.50-5.90) mil/mm3 Hgb (13.0-17.0) gm/dL Hct (39.0-51.0) % MCV (80.0-100.0) fL MCH (27.0-34.0) pg MCHC (32.0-36.0) % RDW (11.6-17.2) % Plt Count (150-450) th/mm3 MPV (7.0-11.0) fL Prelim Diff (Auto) Neut % (Auto) (16.0-70.0) % Lymph % (Auto) (9.0-44.0) % Glades % (Auto) (0.0-8.0) % Eos % (Auto) (0.0-4.0) % Baso % (Auto) (0.0-2.0) % Neut # (Auto) (1.8-7.7) th/mm3 Lymph # (Auto) (1.0-4.8) th/mm3 Glades # (Auto) (0.0-0.9) th/mm3 Eos # (Auto) (0.0-0.4) th/mm3 Baso # (Auto) (0.0-0.2) th/mm3 WBC Differential Seg Neuts % (Manual) (16-70) % Band Neuts % (Manual) (0-6) % Lymphocytes % (Manual) (9-44) % Monocytes % (Manual) (0-8) % Abs Neuts (Manual) (1.8-7.7) th/mm3 Differential Comment Platelet Estimate (Normal) Platelet Morphology (Normal) RBC Morphology (Normal) ESR 17 (0-20) mm/hr PT (9.8-11.6) sec INR Ratio APTT (23.4-31.7) sec Sodium (136-145) meq/L Potassium (3.5-5.1) meq/L Chloride (98-107) meq/L Carbon Dioxide (21.0-32.0) meq/L Anion Gap (5-15) meq/L BUN (7-18) mg/dL Creatinine (0.60-1.30) mg/dL Estimated GFR (>89) mL/min Random Glucose (74-106) mg/dL Lactic Acid (0.4-2.0) mmol/L Calcium (8.5-10.1) mg/dL Total Bilirubin (0.2-1.0) mg/dL AST (15-37) U/L ALT (12-78) U/L Alkaline Phosphatase (45-117) U/L Total Creatine Kinase (39-308) U/L CK-MB (CK-2) (0.5-3.6) ng/mL CK-MB (CK-2) % (0.0-4.0) % C-Reactive Protein 20.00 H (0.00-0.30) mg/dL Total Protein (6.4-8.2) g/dL Albumin (3.4-5.0) g/dL Urine Color Yellow (Yellw/Straw) Urine Clarity Clear (Clear) Urine pH 6.0 (5.0-8.5) Ur Specific Amelia 1.018 (1.002-1.035) Urine Protein 30 H (Neg-Trace) mg/dL Urine Glucose (UA) Negative (Negative) mg/dL Urine Ketones Negative (Negative) mg/dL Urine Occult Blood Negative (Negative) Urine Nitrate Negative (Negative) Urine Bilirubin Negative (Negative) Urine Urobilinogen 4 or greater (Less than 2) mg/dL Ur Leukocyte Esterase Negative (Negative) Urine RBC Less than 1 (0-3) /hpf Urine WBC 1 (0-5) /hpf Micro UA Comment Culture not ind Ur Microscopic Review Not Reportable Urine Culture Comments Culture not ind Imaging Data Radiologist's impression: Chest X-Ray 02/14/18 12:30 CONCLUSION: No acute cardiopulmonary disease. Head CT 02/14/18 12:30 CONCLUSION: 1. No acute intracranial abnormality. 2. 2 cm mass-like lesion within the posterior nasopharynx which may represent a Thornwaldt cyst or other soft tissue mass. ENT evaluation of this finding may be helpful with direct visualization. 3. Mucus retention cyst within the sphenoid sinuses bilaterally. . Knee X-Ray 02/14/18 13:09 CONCLUSION: Total knee arthroplasty. Modest joint effusion Aspiration 02/14/18 13:30 CONCLUSION: 1. Uncomplicated left knee aspiration as above. Discharge Plan Discharge Disposition Patient Disposition: ED Admit(ED Internal Use Only) Discharge Condition Condition: Stable Discharge Order Discharge Orders: ED Use Only Admit Order (Routine); Ordered 02/14/18 Ordered By: Kirk Rowley Discharge Details Diagnosis: Septic arthritis Physicians Team ED Provider: Driss Engel ED Midlevel Provider: Kirk Rowley Primary Care Provider: Yousif Brock Rxs /Orders / Referrals /Forms Prescriptions: No Action aspirin 81 mg Tablet,Delayed Release (Dr/Ec) 81 mg PO BID RF: 0 methylprednisolone 4 mg Tablet 4 mg PO DAILY RF: 0 omeprazole 40 mg Capsule,Delayed Release(Dr/Ec) 40 mg PO DAILY RF: 0 pravastatin 20 mg Tablet 20 mg PO HS RF: 0 cyanocobalamin (vitamin B-12) [Vitamin B-12] 2,000 mcg Tablet Extended Release 2,000 mcg PO DAILY RF: 0 folic acid 800 mcg Tablet 0.8 mg PO DAILY RF: 0 cholecalciferol (vitamin D3) [Vitamin D3] 1,000 unit Capsule 1,000 unit PO DAILY RF: 0 ezetimibe 10 mg Tablet 10 mg PO DAILY RF: 0 olmesartan-hydrochlorothiazide 40-12.5 mg Tablet 0.5 tab PO DAILY RF: 0 duloxetine 30 mg Capsule,Delayed Release(Dr/Ec) 60 mg PO DAILY RF: 0 coQ10 (ubiquinol) 200 mg Capsule 200 mg PO DAILY RF: 0 omega 6-wqg-hgv-fish oil [Cambridge-3] 350 mg-235 mg- 90 mg-597 mg Capsule, Delayed Release(Dr/Ec) 1 cap PO DAILY RF: 0 Status ED Status: With Doctor
[2018-02-14 12:53] LABS: Baso % (Auto) 0.1 % (0.0-2.0); Hematocrit 43.8 % (39.0-51.0); Hemoglobin 15.1 gm/dL (13.0-17.0); Lymph # (Auto) 1.2 th/mm3 (1.0-4.8); Mean Corpuscular HGB Conc 34.5 % (32.0-36.0); Mean Corpuscular Hemoglobin 31.3 pg (27.0-34.0); Mean Corpuscular Volume 90.6 fL (80.0-100.0); Mean Platelet Volume 6.8 fL (7.0-11.0); Mono # (Auto) 2.2 th/mm3 (0.0-0.9); Mono % (Auto) 11.8 % (0.0-8.0); Neut # (Auto) 15.7 th/mm3 (1.8-7.7); Neut % (Auto) 82.1 % (16.0-70.0); Platelet Count 288 th/mm3 (150-450); Red Blood Count 4.83 mil/mm3 (4.50-5.90); Red Cell Distribution Width 14.5 % (11.6-17.2); White Blood Count 19.1 th/mm3 (4.0-11.0)
[2018-02-14 13:01] LABS: INR 1.1 Ratio; Prothrombin Time 11.4 sec (9.8-11.6)
--- NOTE | 2018-02-14 13:11 | CT ---
EXAM DATE: 02/14/2018 1:04 PM EST AGE/SEX: 77 years / Male INDICATIONS: Altered mental status. Headache. CLINICAL DATA: This is the patient's initial encounter. Patient reports that signs and symptoms have been present for 1 day and indicates a pain score of 2/10. MEDICAL/SURGICAL HISTORY: Gastroesophageal reflux disease. Hypertension. Rheumatoid arthritis. In guinal hernia repair. Tonsillectomy. RADIATION DOSE: 37.23 CTDI (mGy) COMPARISON: No prior exams available for comparison. TECHNIQUE: CT of the head without contrast. Using automated exposure control and adjustment of the mA and/or kV according to patient size, radiation dose was kept as low as reasonably achievable to ob tain optimal diagnostic quality images. DICOM format image data is available electronically for revi ew and comparison. FINDINGS: Cerebrum: The ventricles are normal for age. No evidence of midline shift, mass lesion, hemorrhage or acute infarction. No extraaxial fluid collections are seen. Posterior Fossa: The cerebellum and brainstem are intact. The 4th ventricle is midline. The cerebe llopontine angle is unremarkable. Extracranial: The visualized portion of the orbits is intact. Mucus retention cysts are noted within the sphenoid sinuses bilaterally. There is a 2 cm mass-like lesion within the posterior nasopharynx which may represent a Thornwaldt cyst or other soft tissue mass. ENT evaluation of this finding may b e helpful with direct visualization. Skull: The calvaria is intact. No evidence of skull fracture. CONCLUSION: 1. No acute intracranial abnormality. 2. 2 cm mass-like lesion within the posterior nasopharynx which may represent a Thornwaldt cyst or o ther soft tissue mass. ENT evaluation of this finding may be helpful with direct visualization. 3. Mucus retention cyst within the sphenoid sinuses bilaterally. . Electronically signed by: Buzz Rai MD Board Certified Radiologist 02/14/2018 1:10 PM EST
[2018-02-14 13:21] LABS: Lymphocytes 5 % (9-44); Monocytes 8 % (0-8); Platelet Estimate Normal (Normal)
[2018-02-14 13:22] LABS: Alanine Aminotransferase 31 U/L (12-78); Albumin 3.2 g/dL (3.4-5.0); Anion Gap 8 meq/L (5-15); Aspartate Aminotransferase 37 U/L (15-37); Blood Urea Nitrogen 20 mg/dL (7-18); Carbon Dioxide 28.9 meq/L (21.0-32.0); Chloride 95 meq/L (98-107); Glomerular Filtration Rate 56 mL/min (>89); Glucose,Random 104 mg/dL (74-106); Platelet Morphology Normal (Normal); Potassium 3.7 meq/L (3.5-5.1); RBC Morphology Normal (Normal); Sodium 132 meq/L (136-145)
--- NOTE | 2018-02-14 13:23 | XR ---
EXAM DATE: 02/14/2018 12:52 PM EST AGE/SEX: 77 years / Male INDICATIONS: Aches and left knee swelling today, confusion CLINICAL DATA: This is the patient's initial encounter. Patient reports that signs and symptoms have been present for 1 day and indicates a pain score of 0/10. MEDICAL/SURGICAL HISTORY: . neuropathy, quit smoking a few years ago. None. COMPARISON: POI, XR CHEST PA AND LAT, 09/06/2017. . FINDINGS: PA and lateral views of the chest demonstrate the lungs to be symmetrically aerated without evidence of mass, infiltrate or effusion. The cardiomediastinal contours are unremarkable. Osseous structures are intact. CONCLUSION: No acute cardiopulmonary disease. Electronically signed by: Buzz Rai MD Board Certified Radiologist 02/14/2018 1:22 PM EST
[2018-02-14 13:24] LABS: Alkaline Phosphatase 66 U/L (45-117); Total Protein 8.1 g/dL (6.4-8.2)
--- NOTE | 2018-02-14 14:00 | XR ---
EXAM DATE: 02/14/2018 1:57 PM EST AGE/SEX: 77 years / Male INDICATIONS: Pain without trauma. CLINICAL DATA: This is the patient's initial encounter. Patient reports that signs and symptoms have been present for 1 day and indicates a pain score of 8/10. MEDICAL/SURGICAL HISTORY: None. . Knee replacement, left. COMPARISON: No prior exams available for comparison. FINDINGS: Status post a total knee arthroplasty. Modest joint effusion is present. Prosthesis is well-seated. A lignment anatomic. CONCLUSION: Total knee arthroplasty. Modest joint effusion Electronically signed by: Danyel Barbosa MD Board Certified Radiologist 02/14/2018 1:59 PM EST
[2018-02-14 14:11] LABS: CKMB Percent 0.5 % (0.0-4.0); Creatine Kinase MB 3.4 ng/mL (0.5-3.6)
[2018-02-14 15:30] LABS: Bilirubin,Urine Negative (Negative); Clarity,Urine Clear (Clear); Color,Urine Yellow (Yellw/Straw); Glucose,Urine (UA) Negative (Negative); Leukocyte Esterase,Urine Negative (Negative); Nitrite,Urine Negative (Negative); Specific Gravity,Urine 1.018 (1.002-1.035); Urobilinogen,Urine 4 or Greater mg/dL (Less than 2)
[2018-02-14] MEDS ORDERED: Sod Chloride 0.9% Inj 1,000 ML IV.SIG SCH (15:45)
[2018-02-14] MEDS ORDERED: Vancomycin Inj 1,000 MG in Sodium Chlor 0.9% Inj 250 ML IV.SIG ONE (15:58)
--- NOTE | 2018-02-14 16:17 | IR ---
EXAM DATE: 02/14/2018 4:09 PM EST AGE/SEX: 77 years / Male INDICATIONS: Patient with history of Total Knee Replacement presents with Effusion in left knee in n eed of fluid aspiration for evaluation. CLINICAL DATA: This is the patient's initial encounter. Patient reports that signs and symptoms have been present for 2 days and indicates a pain score of 10/10. MEDICAL/SURGICAL HISTORY: . Rheumatoid Arthritis . Total Left Hip, Total Left Knee. COMPARISON: No prior exams available for comparison. IMAGE SERIES: 1 RADIATION DOSE: DEVICE(S): 22 gauge needle was placed into the Left knee joint RESPONSE: Pain Score Pre Procedure: 10/10 Pain Score Post Procedure: FLUID: Total volume of 25 cc of cloudy, yellow fluid was removed. Fluid was sent to lab for ordered studies. . . PROCEDURE : 1. Ultrasound guided left knee aspiration. The risks, benefits and alternatives to the procedure were explained and verbal and written consent w as obtained. The site was prepped in sterile fashion. Full sterile technique was used, including ca p, mask, sterile gloves and gown and a large sterile sheet. Hand hygiene and 2% chlorhexidine and/or betadine/alcohol prep was utilized per protocol for cutaneous antisepsis. The skin and subcutaneous tissues were infiltrated with local anesthetic solution. 21-gauge spinal needle was advanced into the left knee suprapatellar effusion under direct ultrasound guidance. Approximately 25 cc of nearly purulent joint fluid was removed. The patient tolerated the procedure well and there were no complications. CONCLUSION: 1. Uncomplicated left knee aspiration as above. Electronically signed by: Oscar Villagomez MD Board Certified Radiologist 02/14/2018 4:16 PM MARLIN Rey
--- NOTE | 2018-02-14 16:50 | P.HPFP ---
History of Present Illness Primary Care Physician: Yousif Brock MD Chief Complaint: disorientation, knee swollen History of Present Illness: Mr. Sal is a 77-year-old male with prior medical history of rheumatoid arthritis, hypertension, peripheral neuropathy, arthritis, hyperlipidemia and possible prediabetes who presents with an episode of possible TIA this morning and a swollen left knee with effusion. Patient reports he was fine yesterday but his who is also attending interview reports that he had a high diastolic blood pressure. His reports that she woke him up this morning at 9:15 as he usually doesn't sleep that late. Upon awaking him, he was disoriented and couldn't remember the word cane and was having word finding difficulty. This episode resolved after about an hour and a half. He did not take any medication during this time. He ate half a piece of toast. His called 911 due to his confusion and word finding difficulty and he was brought to the ED by [facility]. He also reports he had a very swollen and painful left knee that was not painful at all yesterday. He saw Dr Hill yesterday to have facial cancer excised and was having no trouble walking then. His reports his skin is very thin and he had a little piece of dry skin on his left lower dick that he picked off and it started to bleed on Saturday. They presume this could have been the source of the infection. He has indwelling hardware from previous surgeries including left hip and knee arthroplasty performed by Dr Smith who has been consulted to assist in managing his case. In the ED 25 cc of purulent fluid was drained from the effusion. Labs are pending on this fluid. There is no Hx of previous joint infection. PMHx RA on methotrexate (saturday time) and steroids (10 yrs) HTN peripheral neuropathy in feet arthritis HLD NO diabetes but possible prediabetes PSurgHx Left TKA Left total hip arthroplasty 2 back surgeries 4 hernias right shoulder cleanout FamHx Mother - age 90, old age Father - age 62, CVA and [place] SocHx Quit smoking cigars 5 years ago (1 cigar per week) drinks 4-6 alcoholic drinks per month no other drugs - Diagnosis (1) Septic arthritis (2) Status post total replacement of left hip (3) Status post total left knee replacement using cement Review of Systems Constitutional: Reports chills (x2 days), Reports headache(s), Reports weakness , Denies fever(s), Denies night sweats Eyes: Denies change in vision Ears, Nose, Mouth, and Throat: Reports dizziness, Denies mouth lesions, Denies nasal discharge, Denies post nasal drip, Denies sinus pain Cardiovascular: Denies chest pain, Denies shortness of breath Respiratory: Reports cough (dry cough), Denies chest congestion, Denies shortness of breath Gastrointestinal: Denies abdominal pain, Denies black, tarry stools, Denies loose stools, Denies nausea, Denies vomiting Genitourinary: Denies painful urination Musculoskeletal: Reports back pain, Reports joint pain (left knee) Skin/Breast: Reports lesions (on left leg), Reports rash (on left leg appears resolved) Neurologic: Reports dizziness, Reports headache(s), Reports memory loss (this morning), Reports tingling/numbness/burning sensations (neuropathy in feet), Denies fainting, Denies frequent falls Hematologic/Lymphatic: Reports easy bleeding, Reports easy bruising PMFSH - History History Provided By: Patient - Medical History Medical History: Medical History (Last Reviewed 02/14/18 @ 12:26 by Terri Pineda) Arthritis Constipated External hemorrhoid GERD (gastroesophageal reflux disease) Hard of hearing High cholesterol History of MRSA infection Hypertension Neuropathy Rheumatoid arthritis Skin cancer Urinary frequency Uses hearing aid Wears dentures Wears glasses - Surgical History Surgical History: Surgical History (Last Reviewed 02/14/18 @ 12:26 by Terri Pineda) H/O arthroscopy of shoulder H/O inguinal hernia repair History of laminectomy Hx of tonsillectomy Total knee replacement status - Family History Family History: Family History (Last Updated 02/15/18 @ 00:09 by Henry Gutierrez III R2, , R2) Mother Osteoarthritis Father Myocardial infarct - Social History I have reviewed the patient's Social History: Yes - Tobacco History Second Hand Smoke Exposure: No Smoking Status: Former smoker Tobacco Type: Cigars - Alcohol History How Often Do You Have a Drink Containing Alcohol: 2 to 4 times a month - Substance Use History Substance History: No History of Abuse - Travel History Recent Travel in the [place] Within the Last 8 Weeks: No Recent Travel Out of the Country Within the Last 8 Weeks: No - Immunization History Tetanus Immunization: Unsure Medications and Allergies Active Medications: Active Medications Sodium Chloride (Ns Inj) 1,000 mls @ 1,000 mls/hr IV.SIG BOLUS ANTHONY Stop: 02/14/18 16:44 Vancomycin HCl 1,000 mg/ (Sodium Chloride) 250 mls @ 250 mls/hr IV.SIG ONCE ONE Stop: 02/14/18 16:57 Cefepime HCl 2,000 mg/ Sodium (Chloride) 100 mls @ 200 mls/hr IV.SIG ONCE ONE Stop: 02/14/18 16:27 Sodium Chloride (Ns Flush) 2 ml IV.FLUSH PRN PRN PRN Reason: FLUSH AFTER USING IV ACCESS Allergies Allergy/AdvReac Type Severity Reaction Status Date / Time chlorhexidine Allergy Severe Rash, Verified 02/14/18 12:37 Generalized hydroxychloroquine Allergy Rash Verified 02/14/18 12:37 Home Medications Medication Instructions Recorded Confirmed Type cholecalciferol (vitamin D3) 1,000 unit PO DAILY 09/05/17 02/14/18 History [Vitamin D3] coQ10 (ubiquinol) 200 mg PO DAILY 09/05/17 02/14/18 History cyanocobalamin (vitamin B-12) 2,000 mcg PO DAILY 09/05/17 02/14/18 History [Vitamin B-12] duloxetine 60 mg PO DAILY 09/05/17 02/14/18 History ezetimibe 10 mg PO DAILY 09/05/17 02/14/18 History folic acid 0.8 mg PO DAILY 09/05/17 02/14/18 History methylprednisolone 4 mg PO DAILY 09/05/17 02/14/18 History olmesartan-hydrochlorothiazide 0.5 tab PO DAILY 09/05/17 02/14/18 History omega [id number]-fish oil [Bailey-3] 1 cap PO DAILY 09/05/17 02/14/18 History omeprazole 40 mg PO DAILY 09/05/17 02/14/18 History pravastatin 20 mg PO HS 09/05/17 02/14/18 History Exam Vital signs: Vital Signs 02/14/18 12:27 02/14/18 12:45 02/14/18 15:00 Temperature 99.1 F Pulse Rate 90 94 H 74 Respiratory Rate 18 20 18 Blood Pressure 137/64 135/60 Pulse Oximetry 96 98 97 Intake & Output 12/02/14/18 02/14/18 18:59 06:59 18:59 Weight 92.986 kg Narrative: GENERAL: 77 YO male lying in bed in NAD. SKIN: Warm and dry. Skin over the left knee erythematous and warm to the touch. The site of the effusion drainage is covered with a bandage. There is also a bandage over the distal portion of the dick. HEAD: Normocephalic. Atraumatic. MMM. EYES: No scleral icterus. No injection or drainage. NECK: Supple, trachea midline. No JVD or lymphadenopathy. CARDIOVASCULAR: Regular rate and rhythm without murmurs, gallops, or rubs. RESPIRATORY: Breath sounds equal bilaterally. No accessory muscle use. GASTROINTESTINAL: Abdomen soft, non-tender, nondistended. MUSCULOSKELETAL: No cyanosis. The left knee has a mild effusion and is TTP. BACK: Nontender without obvious deformity. No CVA tenderness. Results - Labs Result diagrams: 02/14/18 12:35 02/14/18 12:35 Abnormal lab results 02/14/18 02/14/18 02/14/18 Range/Units 12:35 12:35 12:35 WBC 19.1 H (4.0-11.0) th/mm3 MPV 6.8 L (7.0-11.0) fL Neut % (Auto) 82.1 H (16.0-70.0) % Lymph % (Auto) 6.0 L (9.0-44.0) % [place] % (Auto) 11.8 H (0.0-8.0) % Neut # (Auto) 15.7 H (1.8-7.7) th/mm3 [place] # (Auto) 2.2 H (0.0-0.9) th/mm3 Seg Neuts % (Manual) 86 H (16-70) % Lymphocytes % (Manual) 5 L (9-44) % Abs Neuts (Manual) 16.6 H (1.8-7.7) th/mm3 APTT 35.9 H (23.4-31.7) sec Sodium 132 L (136-145) meq/L Chloride 95 L (98-107) meq/L BUN 20 H (7-18) mg/dL Estimated GFR 56 L (>89) mL/min Total Creatine Kinase (39-308) U/L C-Reactive Protein (0.00-0.30) mg/dL Albumin 3.2 L (3.4-5.0) g/dL Urine Protein (Neg-Trace) mg/dL 02/14/18 02/14/18 02/14/18 Range/Units 12:35 12:35 15:03 WBC (4.0-11.0) th/mm3 MPV (7.0-11.0) fL Neut % (Auto) (16.0-70.0) % Lymph % (Auto) (9.0-44.0) % [place] % (Auto) (0.0-8.0) % Neut # (Auto) (1.8-7.7) th/mm3 [place] # (Auto) (0.0-0.9) th/mm3 Seg Neuts % (Manual) (16-70) % Lymphocytes % (Manual) (9-44) % Abs Neuts (Manual) (1.8-7.7) th/mm3 APTT (23.4-31.7) sec Sodium (136-145) meq/L Chloride (98-107) meq/L BUN (7-18) mg/dL Estimated GFR (>89) mL/min Total Creatine Kinase 709 H (39-308) U/L C-Reactive Protein 20.00 H (0.00-0.30) mg/dL Albumin (3.4-5.0) g/dL Urine Protein 30 H (Neg-Trace) mg/dL Short CBC 02/14/18 Range/Units 12:35 WBC 19.1 H (4.0-11.0) th/mm3 Hgb 15.1 (13.0-17.0) gm/dL Hct 43.8 (39.0-51.0) % Plt Count 288 (150-450) th/mm3 BMP 02/14/18 12:35 Sodium 132 L Potassium 3.7 Chloride 95 L Carbon Dioxide 28.9 BUN 20 H Creatinine 1.25 Calcium 9.0 Cardiac Enzymes 02/14/18 Range/Units 12:35 Total Creatine Kinase 709 H (39-308) U/L CK-MB (CK-2) 3.4 (0.5-3.6) ng/mL Liver Function 02/14/18 Range/Units 12:35 Total Bilirubin 1.0 (0.2-1.0) mg/dL AST 37 (15-37) U/L ALT 31 (12-78) U/L Alkaline Phosphatase 66 (45-117) U/L Albumin 3.2 L (3.4-5.0) g/dL Urine 02/14/18 Range/Units 15:03 Urine Color Yellow (Yellw/Straw) Urine Clarity Clear (Clear) Urine pH 6.0 (5.0-8.5) Ur Specific Seale 1.018 (1.002-1.035) Urine Protein 30 H (Neg-Trace) mg/dL Urine Glucose (UA) Negative (Negative) mg/dL - Imaging Impressions Chest X-Ray 02/14/18 12:30 CONCLUSION: No acute cardiopulmonary disease. Head CT 02/14/18 12:30 CONCLUSION: 1. No acute intracranial abnormality. 2. 2 cm mass-like lesion within the posterior nasopharynx which may represent a Thornwaldt cyst or other soft tissue mass. ENT evaluation of this finding may be helpful with direct visualization. 3. Mucus retention cyst within the sphenoid sinuses bilaterally. . Knee X-Ray 02/14/18 13:09 CONCLUSION: Total knee arthroplasty. Modest joint effusion Aspiration 02/14/18 13:30 CONCLUSION: 1. Uncomplicated left knee aspiration as above. Caprini VTE Risk Assessment Caprini VTE Risk Assessment: Moderate/High Risk (score >= 2) Assessment and Plan - Assessment (1) Septic arthritis Code(s): M00.9 - Pyogenic arthritis, unspecified Status: Acute (2) Status post total replacement of left hip Code(s): Z96.642 - Presence of left artificial hip joint Status: Acute (3) Status post total left knee replacement using cement Code(s): Z96.652 - Presence of left artificial knee joint Status: Chronic Onset Date: 05/23/04 - Assessment and Plan 77 YO male with PMHx RA, arthritis, HTN, peripheral neuropathy and skin cancer presents with painful moderate effusion of left knee that was drained and found to be bloody with gross pus. WBC 19.1, CRP 20, fluid study pending. DDx: septic arthritis, RA, pseudogout, reactive arthritis. Orthopedics, Dr Smith, has been consulted and plans to take pt to surgery in the morning. Septic arthritis of left knee -Orthopedic consult--appreciate recommendations -NPO after midnight -Non-weight bearing -Fluid study pending -WBC 19.1, CRP 20 -Left knee Xray showing total knee arthroplasty w/o s/s of osteomyelitis; however, there is an effusion -Cefepime 2g IV once in ED -Vancomycin 1g IV once in ED -NS IVF @ 130 mls/hr RA -Methylprednisolone 4 mg PO daily -Cymbalta 60 mg daily HTN -HCTZ 6.25 mg daily -Losartan 50 mg daily Familial HLD -Zetia 10 mg daily -Pravastatin 20 mg hs GERD -Protonix 40 mg daily FEN/GI/PPx Fluids as above Electrolytes: hyponatremia to 132 on admission; consider fluid restriction following surgery Nutrition: NPO GI: Protonix as above PPx: SCDs prior to surgery ASA 81 mg PT following surgery as per orthopedics Tylenol 650 mg PRN Zofran 4 mg PRN Pt DW Dr Barba (1) Septic arthritis Qualifiers: Septic arthritis location: knee Laterality: left
[2018-02-14] MEDS ORDERED: Acetaminophen 325 MG Tablet PO PRN (17:14)
[2018-02-14 17:36] LABS: Appearance,Synovial Fluid Moderate (Clear); Color,Synovial Fluid Yellow (Straw); Neutrophils,Synovial Fluid 100 % (0-25)
[2018-02-14] MEDS ORDERED: Sodium Chlor 0.9% Inj 40 ML, Bupivacaine Liposo PF 1.3% Inj 20 ML P-ARTICULR ONE ×2 (18:19)
--- NOTE | 2018-02-14 18:19 | P.CONOP ---
[facility] Orthopedics Consult Note - [facility] Consult date: 02/14/18 Chief complaint: Septic arthritis Narrative: This 77-year-old man is well-known to me having been treated eating entities over many years. He had a left total knee arthroplasty on 05/23/2004 by the undersigned using a [place] Triathlon prosthesis (femoral size 6, tibial size 7 , 9 mm cruciate retaining spacer, 38 mm asymmetric patella). He has tolerated this very well over the past several years. It has been completely asymptomatic. He has known rheumatoid arthritis. He has been followed for this by Dr. Valencia, a firearms specialist. He has been on methylprednisolone 4 mg daily on 02/11/2018, he was given an injection of methotrexate. He has several pills of methotrexate that he is supposed to take next week. This morning, 02/14/2018, he was awakened by his and seemed disoriented. He seemed to have slight expressive aphasia, not being able to name simple things such as a cane or a walker. At the same time, he was unable to get out of bed because of pain in his left knee. They checked with his primary care physician who advised him to go directly to the emergency department. He was brought by ambulance to [facility] emergency department where he was evaluated. His complaints regarding his orthopedic condition include only his left knee that has been very painful only this morning and into today. He had difficulty moving the knee. Since he has been here, he has had arthrocentesis of the knee with a return of "pus". PMF - History History Provided By: Patient - Medical History Medical History: Medical History (Last Reviewed 02/14/18 @ 12:26 by Terri Pineda) Arthritis Constipated External hemorrhoid GERD (gastroesophageal reflux disease) Hard of hearing High cholesterol History of MRSA infection Hypertension Neuropathy Rheumatoid arthritis Skin cancer Urinary frequency Uses hearing aid Wears dentures Wears glasses - Surgical History Surgical History: Surgical History (Last Reviewed 02/14/18 @ 12:26 by Terri Pineda) H/O arthroscopy of shoulder H/O inguinal hernia repair History of laminectomy Hx of tonsillectomy Total knee replacement status - Family History Family History: Family History (Last Reviewed 10/15/17 @ 10:56 by Martha Garcia PT) Mother Osteoarthritis - Tobacco History Second Hand Smoke Exposure: No Smoking Status: Former smoker Tobacco Type: Cigars - Alcohol History How Often Do You Have a Drink Containing Alcohol: 2 to 4 times a month - Substance Use History Substance History: No History of Abuse - Travel History Recent Travel in the [place] Within the Last 8 Weeks: No Recent Travel Out of the Country Within the Last 8 Weeks: No - Immunization History Tetanus Immunization: Unsure Medications and Allergies Active Medications: Active Medications Acetaminophen (Tylenol) 650 mg PO Q4H PRN PRN Reason: Temp > 100.4 Aspirin (Ecotrin) 81 mg PO BID [facility] Cyanocobalamin (Vitamin B12) 2,000 mcg PO DAILY [facility] Duloxetine HCl (Cymbalta) 60 mg PO DAILY ANTHONY Ezetimibe (Zetia) 10 mg PO DAILY ANTHONY Folic Acid (Folic Acid) 1 mg PO DAILY [facility] Hydrochlorothiazide (Hydrodiuril) 6.25 mg PO DAILY [facility] Sodium Chloride (Ns Inj) 1,000 mls @ 130 mls/hr IV.CONT .Q7H42M ANTHONY Losartan Potassium (Cozaar) 50 mg PO DAILY [facility] Methylprednisolone (Medrol) 4 mg PO DAILY [facility] Non-Formulary Medication (Olmesartan-Hydrochlorothiazide [Olmesartan- Hydrochlorothiazide]) 0.5 tab PO DAILY ANTHONY Ondansetron HCl (Zofran Inj) 4 mg IV.PUSH Q6H PRN PRN Reason: NAUSEA OR VOMITING Pantoprazole Sodium (Protonix) 40 mg PO DAILY ANTHONY Pravastatin Sodium (Pravachol) 20 mg PO HS ANTHONY Senna/Docusate Sodium (Masha-Colace) 1 tab PO BID ANTHONY Sodium Chloride (Ns Flush) 2 ml IV.FLUSH BID ANTHONY Sodium Chloride (Ns Flush) 2 ml IV.FLUSH PRN PRN PRN Reason: FLUSH AFTER USING IV ACCESS Vitamin D (Vitamin D3) 1,000 unit PO DAILY [facility] Allergies Allergy/AdvReac Type Severity Reaction Status Date / Time chlorhexidine Allergy Severe Rash, Verified 02/14/18 12:37 Generalized hydroxychloroquine Allergy Rash Verified 02/14/18 12:37 Home Medications Medication Instructions Recorded Confirmed Type cholecalciferol (vitamin D3) 1,000 unit PO DAILY 09/05/17 02/14/18 History [Vitamin D3] coQ10 (ubiquinol) 200 mg PO DAILY 09/05/17 02/14/18 History cyanocobalamin (vitamin B-12) 2,000 mcg PO DAILY 09/05/17 02/14/18 History [Vitamin B-12] duloxetine 60 mg PO DAILY 09/05/17 02/14/18 History ezetimibe 10 mg PO DAILY 09/05/17 02/14/18 History folic acid 0.8 mg PO DAILY 09/05/17 02/14/18 History methylprednisolone 4 mg PO DAILY 09/05/17 02/14/18 History olmesartan-hydrochlorothiazide 0.5 tab PO DAILY 09/05/17 02/14/18 History omega 2-sdi-jlv-fish oil [[place]-3] 1 cap PO DAILY 09/05/17 02/14/18 History omeprazole 40 mg PO DAILY 09/05/17 02/14/18 History pravastatin 20 mg PO HS 09/05/17 02/14/18 History Exam Vital signs: Vital Signs 02/14/18 12:27 02/14/18 12:45 02/14/18 15:00 Temperature 99.1 F Pulse Rate 90 94 H 74 Respiratory Rate 18 20 18 Blood Pressure 137/64 135/60 Pulse Oximetry 96 98 97 02/14/18 16:06 02/14/18 16:36 02/14/18 17:06 Temperature Pulse Rate 84 78 80 Respiratory Rate 18 18 20 Blood Pressure 138/76 134/72 132/76 Pulse Oximetry 96 97 96 Intake & Output 02/13/18 02/14/18 02/14/18 18:59 06:59 18:59 Intake Total 1100 / 1100 Balance 1100 / 1100 Weight 92.986 kg Intake: IV 1100 / 1100 Maxipime Inj 2,000 MG In NS Inj 100 / 100 100 ML @ 200 mls/hr IV.SIG ONCE ONE Rx#:[id number] NS Inj 1,000 ML @ 1000 mls/hr 1000 / 1000 IV.SIG BOLUS ANTHONY Rx#:[id number] Narrative: The left knee has no deformity but there is some swelling. There is a well- healed anterior medial incisional scar going from above the patella down to the medial aspect of the tibial tubercle. There is evidence of an arthrocentesis. He has a mild effusion. There is minimal tenderness to palpation at this time. He moves the knee relatively well. His neurovascular status is intact regarding the extremity. There is a small abrasion/laceration that is covered with a Band-Aid at the distal one third of his tibia anteriorly. Results - Labs Result Diagrams: 02/14/18 12:35 02/14/18 12:35 Labs: Laboratory Results - last 24 hr 02/14/18 02/14/18 02/14/18 12:35 12:35 12:35 WBC 19.1 H RBC 4.83 Hgb 15.1 Hct 43.8 MCV 90.6 MCH 31.3 MCHC 34.5 RDW 14.5 Plt Count 288 MPV 6.8 L Prelim Diff (Auto) Slide review pending Neut % (Auto) 82.1 H Lymph % (Auto) 6.0 L [place] % (Auto) 11.8 H Eos % (Auto) 0.0 Baso % (Auto) 0.1 Neut # (Auto) 15.7 H Lymph # (Auto) 1.2 [place] # (Auto) 2.2 H Eos # (Auto) 0.0 Baso # (Auto) 0.0 WBC Differential Manual diff final Seg Neuts % (Manual) 86 H Band Neuts % (Manual) 1 Lymphocytes % (Manual) 5 L Monocytes % (Manual) 8 Abs Neuts (Manual) 16.6 H Differential Comment . Platelet Estimate Normal Platelet Morphology Normal RBC Morphology Normal ESR PT 11.4 INR 1.1 APTT Sodium 132 L Potassium 3.7 Chloride 95 L Carbon Dioxide 28.9 Anion Gap 8 BUN 20 H Creatinine 1.25 Estimated GFR 56 L Random Glucose 104 Lactic Acid Calcium 9.0 Total Bilirubin 1.0 AST 37 ALT 31 Alkaline Phosphatase 66 Total Creatine Kinase CK-MB (CK-2) CK-MB (CK-2) % C-Reactive Protein Total Protein 8.1 Albumin 3.2 L Urine Color Urine Clarity Urine pH Ur Specific [place] Urine Protein Urine Glucose (UA) Urine Ketones Urine Occult Blood Urine Nitrate Urine Bilirubin Urine Urobilinogen Ur Leukocyte Esterase Urine RBC Urine WBC Micro UA Comment Ur Microscopic Review Urine Culture Comments Synovial Color Synovial Appearance Synovial RBC Synovial Nuc Cells Synovial Neutrophils Synovial Crystals 02/14/18 02/14/18 02/14/18 12:35 12:35 12:35 WBC RBC Hgb Hct MCV MCH MCHC RDW Plt Count MPV Prelim Diff (Auto) Neut % (Auto) Lymph % (Auto) [place] % (Auto) Eos % (Auto) Baso % (Auto) Neut # (Auto) Lymph # (Auto) [place] # (Auto) Eos # (Auto) Baso # (Auto) WBC Differential Seg Neuts % (Manual) Band Neuts % (Manual) Lymphocytes % (Manual) Monocytes % (Manual) Abs Neuts (Manual) Differential Comment Platelet Estimate Platelet Morphology RBC Morphology ESR PT INR APTT 35.9 H Sodium Potassium Chloride Carbon Dioxide Anion Gap BUN Creatinine Estimated GFR Random Glucose Lactic Acid 1.7 Calcium Total Bilirubin AST ALT Alkaline Phosphatase Total Creatine Kinase 709 H CK-MB (CK-2) 3.4 CK-MB (CK-2) % 0.5 C-Reactive Protein Total Protein Albumin Urine Color Urine Clarity Urine pH Ur Specific [place] Urine Protein Urine Glucose (UA) Urine Ketones Urine Occult Blood Urine Nitrate Urine Bilirubin Urine Urobilinogen Ur Leukocyte Esterase Urine RBC Urine WBC Micro UA Comment Ur Microscopic Review Urine Culture Comments Synovial Color Synovial Appearance Synovial RBC Synovial Nuc Cells Synovial Neutrophils Synovial Crystals 02/14/18 02/14/18 02/14/18 12:35 12:35 15:03 WBC RBC Hgb Hct MCV MCH MCHC RDW Plt Count MPV Prelim Diff (Auto) Neut % (Auto) Lymph % (Auto) [place] % (Auto) Eos % (Auto) Baso % (Auto) Neut # (Auto) Lymph # (Auto) [place] # (Auto) Eos # (Auto) Baso # (Auto) WBC Differential Seg Neuts % (Manual) Band Neuts % (Manual) Lymphocytes % (Manual) Monocytes % (Manual) Abs Neuts (Manual) Differential Comment Platelet Estimate Platelet Morphology RBC Morphology ESR 17 PT INR APTT Sodium Potassium Chloride Carbon Dioxide Anion Gap BUN Creatinine Estimated GFR Random Glucose Lactic Acid Calcium Total Bilirubin AST ALT Alkaline Phosphatase Total Creatine Kinase CK-MB (CK-2) CK-MB (CK-2) % C-Reactive Protein 20.00 H Total Protein Albumin Urine Color Yellow Urine Clarity Clear Urine pH 6.0 Ur Specific [place] 1.018 Urine Protein 30 H Urine Glucose (UA) Negative Urine Ketones Negative Urine Occult Blood Negative Urine Nitrate Negative Urine Bilirubin Negative Urine Urobilinogen 4 or greater Ur Leukocyte Esterase Negative Urine RBC Less than 1 Urine WBC 1 Micro UA Comment Culture not ind Ur Microscopic Review Not Reportable Urine Culture Comments Culture not ind Synovial Color Synovial Appearance Synovial RBC Synovial Nuc Cells Synovial Neutrophils Synovial Crystals 02/14/18 02/14/18 15:45 15:45 WBC RBC Hgb Hct MCV MCH MCHC RDW Plt Count MPV Prelim Diff (Auto) Neut % (Auto) Lymph % (Auto) [place] % (Auto) Eos % (Auto) Baso % (Auto) Neut # (Auto) Lymph # (Auto) [place] # (Auto) Eos # (Auto) Baso # (Auto) WBC Differential Seg Neuts % (Manual) Band Neuts % (Manual) Lymphocytes % (Manual) Monocytes % (Manual) Abs Neuts (Manual) Differential Comment Platelet Estimate Platelet Morphology RBC Morphology ESR PT INR APTT Sodium Potassium Chloride Carbon Dioxide Anion Gap BUN Creatinine Estimated GFR Random Glucose Lactic Acid Calcium Total Bilirubin AST ALT Alkaline Phosphatase Total Creatine Kinase CK-MB (CK-2) CK-MB (CK-2) % C-Reactive Protein Total Protein Albumin Urine Color Urine Clarity Urine pH Ur Specific [place] Urine Protein Urine Glucose (UA) Urine Ketones Urine Occult Blood Urine Nitrate Urine Bilirubin Urine Urobilinogen Ur Leukocyte Esterase Urine RBC Urine WBC Micro UA Comment Ur Microscopic Review Urine Culture Comments Synovial Color Yellow Synovial Appearance Moderate H Synovial RBC 2300 H Synovial Nuc Cells 80558 H Synovial Neutrophils 100 H Synovial Crystals None - Diagnostic results Imaging: Impressions Chest X-Ray 02/14/18 12:30 CONCLUSION: No acute cardiopulmonary disease. Head CT 02/14/18 12:30 CONCLUSION: 1. No acute intracranial abnormality. 2. 2 cm mass-like lesion within the posterior nasopharynx which may represent a Thornwaldt cyst or other soft tissue mass. ENT evaluation of this finding may be helpful with direct visualization. 3. Mucus retention cyst within the sphenoid sinuses bilaterally. . Knee X-Ray 02/14/18 13:09 CONCLUSION: Total knee arthroplasty. Modest joint effusion Aspiration 02/14/18 13:30 CONCLUSION: 1. Uncomplicated left knee aspiration as above. Assessment and Plan - Problem List (1) Pyogenic bacterial arthritis of left knee Code(s): M00.862 - Arthritis due to other bacteria, left knee Status: Acute (2) Status post total left knee replacement using cement Code(s): Z96.652 - Presence of left artificial knee joint Status: Chronic Onset Date: 05/23/04 - Assessment and Plan It appears the patient may have a hematogenous pyogenic arthritis of his left total knee. He has had an arthrocentesis under ultrasound. The pathology report is within the chart. Culture reports are apparently pending. I have discussed this with the patient and his family. The treatment that I feel is appropriate at this time would be to do an arthrotomy of the knee with debridement and exchange of polyethylene. He needs to be observed overnight first because of the potential for a transient ischemic attack. I will do this tomorrow morning. I have explained the procedure as well as possible complications, expected results and expected course of treatment. There is a possibility that he will need to have another operation within the next several days to weeks. This would possibly be a repeat arthrotomy and debridement with removal of implants and placement of an antibiotic laden dynamic cement spacer. He will need to be on parenteral antibiotics possibly for up to 6 weeks. A consultation with an infectious disease specialist would be appropriate. He has been admitted to the [facility] under Cecilio Barba MD. I will make orders for the consent and preoperative orders.
[2018-02-14] MEDS: Senna/Docusate Sodium 8.6/50 MG Tablet PO SCH (21:47)
[2018-02-14] MEDS: Sod Chloride 0.9% Inj 1,000 ML IV.CONT SCH (21:48)
[2018-02-15] MEDS: Sod Chloride 0.9% Inj 1,000 ML IV.CONT SCH ×3 (03:56→17:26)
[2018-02-15 06:14] LABS: Baso % (Auto) 0.2 % (0.0-2.0); Eos % (Auto) 0.1 % (0.0-4.0); Hematocrit 36.6 % (39.0-51.0); Hemoglobin 12.6 gm/dL (13.0-17.0); Lymph % (Auto) 7.5 % (9.0-44.0); Mean Corpuscular HGB Conc 34.5 % (32.0-36.0); Mean Corpuscular Hemoglobin 30.6 pg (27.0-34.0); Mean Corpuscular Volume 88.7 fL (80.0-100.0); Mean Platelet Volume 7.4 fL (7.0-11.0); Mono # (Auto) 1.7 th/mm3 (0.0-0.9); Mono % (Auto) 12.4 % (0.0-8.0); Neut # (Auto) 10.8 th/mm3 (1.8-7.7); Neut % (Auto) 79.8 % (16.0-70.0); Platelet Count 226 th/mm3 (150-450); Red Blood Count 4.13 mil/mm3 (4.50-5.90); Red Cell Distribution Width 14.5 % (11.6-17.2); White Blood Count 13.6 th/mm3 (4.0-11.0)
[2018-02-15] MEDS ORDERED: Sodium Chlor 0.9% Inj 500 ML IV.CONT ONE (06:30)
[2018-02-15 06:45] LABS: Alanine Aminotransferase 26 U/L (12-78); Albumin 2.4 g/dL (3.4-5.0); Alkaline Phosphatase 50 U/L (45-117); Anion Gap 9 meq/L (5-15); Aspartate Aminotransferase 37 U/L (15-37); Blood Urea Nitrogen 16 mg/dL (7-18); Calcium 8.2 mg/dL (8.5-10.1); Carbon Dioxide 25.5 meq/L (21.0-32.0); Chloride 102 meq/L (98-107); Glomerular Filtration Rate 76 mL/min (>89); Glucose,Random 101 mg/dL (74-106); Potassium 3.7 meq/L (3.5-5.1); Sodium 136 meq/L (136-145); Total Protein 6.2 g/dL (6.4-8.2)
[2018-02-15] MEDS ORDERED: Sodium Chlor 0.9% Inj 40 ML, Bupivacaine Liposo PF 1.3% Inj 20 ML P-ARTICULR ONE ×2 (07:15)
[2018-02-15] MEDS ORDERED: Sodium Chlor 0.9% Inj 40 ML, Bupivacaine Liposo PF 1.3% Inj 20 ML P-ARTICULR SCH ×2 (07:15)
[2018-02-15] MEDS ORDERED: ceFAZolin 1 GM Premix Inj 3 GM/150 ML PIGGYBACK IV.SIG ONE (07:53)
[2018-02-15] MEDS ORDERED: SODIUM CHLOR 0.9% IV.SIG SCH ×3 (08:00→12:00)
[2018-02-15] MEDS ORDERED: TRANEXAMIC ACID IV.SIG SCH ×3 (08:00→12:00)
[2018-02-15] MEDS ORDERED: OLMESARTAN PO SCH (09:00)
[2018-02-15] MEDS ORDERED: [UNRECOGNIZED DRUG - OTHER] PO SCH (09:00)
[2018-02-15] MEDS ORDERED: HYDROCHLOROTHIAZIDE PO SCH (09:00)
[2018-02-15] MEDS ORDERED: Non-Formulary Drug (Coq10 (Ubiquinol) [Coq10 (Ubiquinol)] 200 MG) PO SCH (09:00)
[2018-02-15] MEDS ORDERED: Non-Formulary Drug (Cholecalciferol (Vitamin D3) [Vitamin D3] 1,000 UNIT) PO SCH (09:00)
[2018-02-15] MEDS ORDERED: Non-Formulary Drug (Omega 3-Dha-Epa-Fish Oil [Omega-3] 1 CAP) PO SCH (09:00)
[2018-02-15] MEDS ORDERED: Morphine Inj 4 MG/ML Vial IV.PUSH PRN (10:25)
[2018-02-15] MEDS ORDERED: Aluminum/Magnesium/Simethacone Susp 30 ML UDC PO PRN (10:25)
[2018-02-15] MEDS ORDERED: Post-op Orders (for Pharmacy) OTHER STA (10:25)
[2018-02-15] MEDS ORDERED: fentaNYL Citrate Inj 100 MCG/2 ML Ampul ONE (10:46)
--- NOTE | 2018-02-15 10:52 | P.OP ---
- Preoperative Diagnosis (1) Pyogenic bacterial arthritis of left knee (2) Status post total left knee replacement using cement - Postoperative Diagnosis (1) Pyogenic bacterial arthritis of left knee (2) Status post total left knee replacement using cement Date of procedure: 02/15/18 Procedure: Arthrotomy, left knee with synovectomy, irrigation and excisional debridement and tibial polyethylene exchange, left total knee. Implants: [place] Triathlon tibial spacer, X3 polyethylene, size 7, 9 mm, cruciate retaining. Anesthesia: GETA, local (Exparel) Surgeon: Michael Smith MD Estimated blood loss (mL): 200 Tourniquet time (min): 0 Pathology: other (Joint fluid sent for Gram stain and culture and sensitivity. Tissue sent for culture and sensitivity.) Operation and Findings: Indications and findings: This 77-year-old man had a left total knee arthroplasty carried out in 2004. He tolerated this very well and has had a benign course since then. On Saturday he had an injection of methotrexate. Sometime this week, he had a small laceration on his leg. Yesterday, he awoke with hypertension and aphasia and spontaneous onset of left knee pain. He was brought to the emergency department where he was found to have swelling in the knee. He was evaluated for his neurologic symptoms and also had an aspiration of the knee. There is purulent material in the aspirate. He was admitted for care of his condition. He did receive a single dose of vancomycin in the emergency department after the culture from the aspirate was obtained. Laboratory studies are included in the chart. Operative findings: The left total knee arthroplasty implants appeared to be well seated. There was no significant wear. The contents of the joint showed a seropurulent effusion. There was some synovitis as well. Procedure: The patient was brought to the clean air operating suite. A general anesthetic was administered. He was placed in the supine position on the operating table with a small bolster under the left hip. A pneumatic tourniquet was applied to the left thigh. The limb was prepped with alcohol, Betadine and DuraPrep. The knee was draped free. An appropriate timeout procedure was carried out. Local anesthetic was administered into the incision prior to making the incision. Incision was made from about 3 fingerbreadths above the superior medial pole of the patella down to the tibial tubercle on the medial side following the previous incisional scar with some extension. The incision was deepened through the subcutaneous tissues to the retinacular structures which were exposed medially. A medial retinacular incision was made from the superior medial pole patella down to the tibial tubercle. Fluid was evacuated from the knee probably approximately 75 mL. This was seropurulent. The incision was extended up into the quadriceps and down to the tibial tubercle. Medial and lateral dissection was carried out. Some synovial tissue was resected and sent as a specimen for culture and sensitivity. After the specimens had been removed, antibiotics were administered in the form of Ancef and subsequently vancomycin. Dissection was carried out about the knee debriding all the synovial tissue that could be seen in the medial lateral gutters and suprapatellar pouch. Medial and lateral dissection was carried out resecting tissue as well. The intercondylar notch synovium was debrided. Hemostasis was achieved carefully achieved throughout the procedure with electrocautery. The tibial insert was removed. Tissues in the posterior aspect and popliteal fossa were debrided as well. This was done with curettage and rongeur. The tissues appeared to be physiologic and non-infected at this time. The wound was irrigated well with pulse lavage with antibiotic solution. A dilute solution of Betadine was left in the knee for a timed 3 minutes. This was irrigated with further antibiotic solution. A new tibial insert was impacted into place and seated appropriately. Repeat irrigation with dilute Betadine was carried out. The knee was again irrigated with antibiotic solution. Drains were brought at the superior lateral aspect of the suprapatellar pouch. The wound was closed in layers using #1 and 0 PDS interrupted [id number] sutures for the capsule and extensor mechanism, 0 PDS interrupted [id number] and continuous suture for the superficial fascial layers, 2-0 Monocryl interrupted simple sutures with buried knots for the subcutaneous tissues and 4-0 Monocryl continuous subcuticular closure for the skin. The wound was dressed with Dermabond Prineo followed by OPTi foam AG, soft roll and Leonardo wrap. He was transferred from the operating room to the recovery room in satisfactory condition having tolerated the procedure well. Counts were correct.
[2018-02-15] MEDS ORDERED: Ketorolac Inj 30 MG/ML (IVP) Vial ONE (10:55)
[2018-02-15] MEDS: Ketorolac Inj 30 MG/ML (IVP) Vial IV.PUSH SCH ×3 (11:15→22:38)
--- NOTE | 2018-02-15 11:29 | XR ---
EXAM DATE: 02/15/2018 11:25 AM EST AGE/SEX: 77 years / Male INDICATIONS: Post-op left knee. CLINICAL DATA: This is the patient's initial encounter. Patient reports that signs and symptoms have been present for 1 day and indicates a pain score of 0/10. MEDICAL/SURGICAL HISTORY: None. None. COMPARISON: [facility] [place], KNEE COMPLETE LEFT 4V, 02/14/2018. . FINDINGS: There is a total knee prosthesis in place. This appears well placed. There is a suprapatellar drain p resent. A fracture is not seen. The knee joint appears aligned. CONCLUSION: Good appearance of the total knee replacement. Electronically signed by: Brennan Peña MD Board Certified Radiologist 02/15/2018 11:28 AM EST
[2018-02-15] MEDS: Senna/Docusate Sodium 8.6/50 MG Tablet PO SCH ×2 (12:11→22:34)
[2018-02-15] MEDS: Folic Acid 1 MG Tablet PO SCH (12:12)
[2018-02-15] MEDS: hydroCHLOROthiazide 25 MG Tablet PO SCH (12:12)
[2018-02-15] MEDS: Ezetimibe 10 MG Tablet PO SCH (12:13)
[2018-02-15] MEDS: Vancomycin Inj 1,500 MG in Sodium Chlor 0.9% Inj 500 ML IV.SIG SCH (14:16)
[2018-02-15] MEDS: ceFAZolin 2 GM Premix Inj 2 GM/50 ML PIGGYBACK IV.SIG SCH ×2 (14:16→22:32)
--- NOTE | 2018-02-15 15:26 | MB ---
cc: Shawn Kim MD DATE: 02/15/2018 REQUESTING PHYSICIAN: Dr. Gutierrez REASON: A 77-year-old male with septic arthritis of the left knee. Assistance with antibiotics management. HISTORY OF PRESENT ILLNESS: This is a 77-year-old white male who has rheumatoid arthritis. The patient developed pain in the left knee and was brought to the emergency department for evaluation. The patient also developed altered mental status prior to being brought to the emergency department. His was concerned about the mental status change. He reportedly was having confusion and difficulty answering simple questions. The symptoms apparently improved by the time he got to the emergency department. The patient has been treated with methotrexate injection by his reservoir engineer. He was evaluated and not seen by his orthopedic physician. Blood cultures were taken on admission and synovial fluid was also taken. Blood cultures, gram-positive cocci in all 4 bottles with one bottle identified as Enterococcus faecalis. Synovial fluid cultures, gram-positive cocci. The patient underwent arthrotomy of the left knee with synovectomy and irrigation and excisional debridement. There was noted to be seropurulent effusion in the left knee joint. Cultures are pending from that procedure. The patient is just postop about an hour and he is somewhat drowsy, but he awakens and answers questions without difficulty. He has no complaints except for soreness of the throat, which he thinks is related to intubation. He states that this has occurred in the past also where he developed soreness of his throat after procedure. PAST MEDICAL HISTORY: Arthritis, gastroesophageal reflux disease, hypercholesteremia, hypertension, neuropathy, rheumatoid arthritis, skin cancer, external hemorrhoids, history of shoulder arthroscopy, history of inguinal hernia repair, history of laminectomy, left knee replacement in 2004. ALLERGIES: HYDROXYCHLOROQUINE, CHLORHEXIDINE. MEDICATIONS: 1. Vancomycin. 2. Ecotrin. 3. Ancef. 4. Vitamin B12. 5. Benadryl. 6. Cymbalta. 7. Zetia. 8. Folic acid. 9. Hydrochlorothiazide. 10. Toradol. 11. Cozaar. 12. Methylprednisolone. 13. Protonix. 14. Pravachol. 15. Masha-Colace. 16. Vitamin D. 17. Ambien. SOCIAL HISTORY: . The patient is a former smoker. Positive alcohol use. No illicit drugs. FAMILY HISTORY: Noncontributory. REVIEW OF SYSTEMS: All systems have been reviewed. Pertinent as mentioned in the history of present illness. PHYSICAL EXAMINATION: GENERAL: This is a well-developed male who is in no acute distress. He is a little somnolent. VITAL SIGNS: Temperature 98.3, BP 182/55, respirations 20, heart rate 80. HEENT: Head is atraumatic. Extraocular movements grossly intact. Pupils reactive to light. No icterus. No conjunctival erythema. Oropharyngeal mucosa is slightly dry. No visible lesions. NECK: Supple without adenopathy or swelling. LUNGS: Decreased breath sounds bilaterally. HEART: Regular S1 and S2, which are distant. ABDOMEN: Bowel sounds present. Soft, nontender. RECTAL: Not performed. EXTREMITIES: Left knee is wrapped in a surgical dressing and there is a bulb that exits the wound and is in a Hemovac. There is bloody drainage in the catheter. SKIN: No diffuse rash. NEUROLOGIC: No gross focal findings. PSYCHIATRIC: The patient is calm and cooperative. LABORATORY DATA: WBC 13.6, platelets 226, hemoglobin 12.6, 76% neutrophils. Creatinine 0.96, BUN 16, sodium 136. C-reactive protein 20. LFTs normal. Synovial fluid 60,500 white cells, 100% neutrophils. IMPRESSION: 1. Sepsis in a patient with altered mental status and elevated blood cell count and positive bacteria in the blood. Preliminary cultures grew gram-positive cocci. 2. Septic arthritis of the left knee, which is likely source of the bacteremia and sepsis. RECOMMENDATIONS: 1. Continue the vancomycin. 2. Monitor the blood culture. 3. Monitor synovial fluid culture. 4. Monitor surgical cultures obtained after today's procedure. Thank you for this consultation. The patient's progress will be monitored and further determination on antibiotic choice to be depending on the culture results. We will repeat the blood cultures tomorrow and follow for clearance of bacteremia. Thank you for this consultation. Shawn Kim MD FFD/ct , 01:44 PM , 02:01 PM
--- NOTE | 2018-02-15 17:15 | P.PNFP ---
Subjective Interval history: Pt seen and evaluated this morning after his operation. Pt was asleep but easily awake upon discussing case with family. Pt reports doing ok. Discussed with pt and family the results of his blood cultures and the need of antibiotic treatment at this time. Pt and family agrees with treatment. Pt denies SOB, CP, confusion, or pain at this time. <Janel Uriarte V - 02/15/18 17:15> Results - Labs Result diagrams: 02/16/18 07:57 02/15/18 04:56 <Cecilio Barba - 02/16/18 12:46> Abnormal lab results 02/16/18 Range/Units 07:57 Hgb 11.2 L (13.0-17.0) gm/dL Hct 32.3 L (39.0-51.0) % Short CBC 02/16/18 Range/Units 07:57 Hgb 11.2 L (13.0-17.0) gm/dL Hct 32.3 L (39.0-51.0) % <Cecilio Barba - 02/16/18 12:46> Abnormal lab results 02/14/18 02/15/18 02/15/18 Range/Units 15:45 04:56 04:56 WBC 13.6 H (4.0-11.0) th/mm3 RBC 4.13 L (4.50-5.90) mil/mm3 Hgb 12.6 L D (13.0-17.0) gm/dL Hct 36.6 L (39.0-51.0) % Neut % (Auto) 79.8 H (16.0-70.0) % Lymph % (Auto) 7.5 L (9.0-44.0) % Todd % (Auto) 12.4 H (0.0-8.0) % Neut # (Auto) 10.8 H (1.8-7.7) th/mm3 Todd # (Auto) 1.7 H (0.0-0.9) th/mm3 Estimated GFR 76 L (>89) mL/min Calcium 8.2 L D (8.5-10.1) mg/dL Total Protein 6.2 L D (6.4-8.2) g/dL Albumin 2.4 L D (3.4-5.0) g/dL Synovial Appearance Moderate H (Clear) Synovial RBC 2300 H (0-0) /mm3 Synovial Nuc Cells 26875 H (0-200) /mm3 Synovial Neutrophils 100 H (0-25) % Short CBC 02/15/18 Range/Units 04:56 WBC 13.6 H (4.0-11.0) th/mm3 Hgb 12.6 L D (13.0-17.0) gm/dL Hct 36.6 L (39.0-51.0) % Plt Count 226 (150-450) th/mm3 BMP 02/15/18 04:56 Sodium 136 Potassium 3.7 Chloride 102 Carbon Dioxide 25.5 BUN 16 Creatinine 0.96 Calcium 8.2 L D Liver Function 02/15/18 Range/Units 04:56 Total Bilirubin 0.9 (0.2-1.0) mg/dL AST 37 (15-37) U/L ALT 26 (12-78) U/L Alkaline Phosphatase 50 (45-117) U/L Albumin 2.4 L D (3.4-5.0) g/dL <Janel Uriarte V - 02/15/18 17:15> - Imaging Impressions Knee X-Ray 02/15/18 10:23 CONCLUSION: Good appearance of the total knee replacement. <Janel Uriarte 02/15/18 17:15> Physical Exam Vital signs: Vital Signs 02/15/18 13:17 02/15/18 16:37 02/15/18 17:55 Temperature 98.1 F 98.3 F Pulse Rate 66 71 Respiratory Rate 16 14 Blood Pressure 82/52 L 96/52 L Pulse Oximetry 95 96 95 02/15/18 20:00 02/16/18 00:00 02/16/18 04:00 Temperature 97.9 F 97.7 F 97.8 F Pulse Rate 87 74 70 Respiratory Rate 16 20 18 Blood Pressure 99/70 L 90/57 L 113/56 L Pulse Oximetry 92 L 4 L 92 L 02/16/18 08:00 Temperature 98.2 F Pulse Rate 68 Respiratory Rate 18 Blood Pressure 119/59 L Pulse Oximetry 93 L Intake & Output 02/15/18 02/16/18 02/16/18 18:59 06:59 18:59 Intake Total 3074.3 / 3074.3 1615 / 1615 Output Total 400 / 400 260 / 260 300 / 300 Balance 2674.3 / 2674.3 1355 / 1355 -300 / -300 Weight 98 kg Intake: IV 2374.3 / 2374.3 1615 / 1615 NS Inj 1,000 ML @ 130 mls/hr IV 1550 / 1550 1000 / 1000 .CONT .Q7H42M [facility] Rx#:[id number] Cyklokapron Inj 930 MG In NS 109.3 / 109.3 Inj 100 ML @ 200 mls/hr IV.SIG ONCE [facility] Rx#:[id number] Vancomycin Inj 1,500 MG In NS 515 / 515 515 / 515 Inj 500 ML @ 250 mls/hr IV.SIG Q12H [facility] Rx#:[id number] Ancef 1 GM Premix Inj 3 gm In 150 / 150 150 ml @ 0 mls/hr IV.SIG .STK- MED ONE Rx#:[id number] Ancef 2 GM Premix Inj 2 gm In 50 / 50 100 / 100 50 ml @ 100 mls/hr IV.SIG Q6H [facility] Rx#:[id number] Anesthesia Amount 700 / 700 Output: Urine 200 / 200 200 / 200 300 / 300 Estimated Blood Loss 200 / 200 Wound Drainage 60 / 60 # 1 Left Knee Hemovac 60 / 60 Other: # Voids 4 Date of Last Bowel Movement 02/14/18 02/14/18 <Cecilio Barba - 02/16/18 12:46> Vital Signs 02/14/18 20:00 02/15/18 04:00 02/15/18 09:17 Temperature 99.1 F 99.1 F Pulse Rate 77 77 Respiratory Rate 20 20 Blood Pressure 107/59 L 107/59 L Pulse Oximetry 96 96 96 02/15/18 10:41 02/15/18 11:00 02/15/18 11:15 Temperature 98.2 F 98.3 F Pulse Rate 81 71 80 Respiratory Rate 19 20 19 Blood Pressure 148/67 H 133/64 118/55 L Pulse Oximetry 92 L 92 L 95 02/15/18 12:03 02/15/18 13:17 Temperature 98.1 F Pulse Rate 66 Respiratory Rate 16 16 Blood Pressure 82/52 L Pulse Oximetry 95 Intake & Output 02/14/18 02/15/18 02/15/18 18:59 06:59 18:59 Intake Total 1100 / 1100 1000 / 1000 3074.3 / 3074.3 Output Total 2 / 2 200 / 200 Balance 1100 / 1100 998 / 998 2874.3 / 2874.3 Weight 92.986 kg 94.1 kg Intake: IV 1100 / 1100 1000 / 1000 2374.3 / 2374.3 NS Inj 1,000 ML @ 130 mls/hr IV 1000 / 1000 1550 / 1550 .CONT .Q7H42M [facility] Rx#:[id number] Maxipime Inj 2,000 MG In NS Inj 100 / 100 100 ML @ 200 mls/hr IV.SIG ONCE ONE Rx#:[id number] NS Inj 1,000 ML @ 1000 mls/hr 1000 / 1000 IV.SIG BOLUS [facility] Rx#:[id number] Cyklokapron Inj 930 MG In NS 109.3 / 109.3 Inj 100 ML @ 200 mls/hr IV.SIG ONCE [facility] Rx#:[id number] Vancomycin Inj 1,500 MG In NS 515 / 515 Inj 500 ML @ 250 mls/hr IV.SIG Q12H [facility] Rx#:[id number] Ancef 1 GM Premix Inj 3 gm In 150 / 150 150 ml @ 0 mls/hr IV.SIG .STK- MED ONE Rx#:[id number] Ancef 2 GM Premix Inj 2 gm In 50 / 50 50 ml @ 100 mls/hr IV.SIG Q6H [facility] Rx#:[id number] Anesthesia Amount 700 / 700 Output: Urine 2 / 2 Estimated Blood Loss 200 / 200 Other: Date of Last Bowel Movement 02/14/18 02/14/18 # Bowel Movements 1 <Janel Uriarte V - 02/15/18 17:15> Narrative: GENERAL: 77 YO male lying in bed in [facility]. SKIN: Warm and dry. CARDIOVASCULAR: Regular rate and rhythm without murmurs, gallops, or rubs. RESPIRATORY: Breath sounds equal bilaterally. No accessory muscle use. GASTROINTESTINAL: Abdomen soft, non-tender, nondistended. MUSCULOSKELETAL: No cyanosis. The left knee is wrapped in cheyanne bandage. Clear, no drainage or blood appreciated. There is a bulb with no drainage at this time. <Janel Uriarte V - 02/15/18 17:15> Assessment and Plan - Assessment (1) Septic arthritis Code(s): M00.9 - Pyogenic arthritis, unspecified Status: Acute (2) Bacteremia Code(s): R78.81 - Bacteremia Status: Acute (3) Pyogenic bacterial arthritis of left knee Code(s): M00.862 - Arthritis due to other bacteria, left knee Status: Acute (4) Status post total left knee replacement using cement Code(s): Z96.652 - Presence of left artificial knee joint Status: Chronic Onset Date: 05/23/04 (5) Status post total replacement of left hip Code(s): Z96.642 - Presence of left artificial hip joint Status: Chronic <Cecilio Barba - 02/16/18 12:46> (1) Septic arthritis Code(s): M00.9 - Pyogenic arthritis, unspecified Status: Acute (2) Bacteremia Code(s): R78.81 - Bacteremia Status: Acute (3) Pyogenic bacterial arthritis of left knee Code(s): M00.862 - Arthritis due to other bacteria, left knee Status: Acute (4) Status post total left knee replacement using cement Code(s): Z96.652 - Presence of left artificial knee joint Status: Chronic Onset Date: 05/23/04 (5) Status post total replacement of left hip Code(s): Z96.642 - Presence of left artificial hip joint Status: Chronic <Sreekanth Gamboa Janel Simmons V - 02/15/18 17:16> - Assessment and Plan 77 YO male with PMHx RA, arthritis, HTN, peripheral neuropathy and skin cancer presents with painful moderate effusion of left knee that was drained and found to be bloody with gross pus. WBC 19.1, CRP 20, Septic arthritis of left knee Pt taken to OR this morning for debridement, see OP report Fluid study growing gram positive cocci Cefepime 2g IV once in ED, and three doses post op Vancomycin 1g IV once in ED Pain: Toradol and [place] PRN Bacteremia Blood cultures positive for Gram Positive Cocci x4 Restart Vancomycin 1.5mg IV q12hr ID consulted and following RA -Methylprednisolone 4 mg PO daily -Cymbalta 60 mg daily HTN -HCTZ 6.25 mg daily -Losartan 50 mg daily Familial HLD -Zetia 10 mg daily -Pravastatin 20 mg hs GERD -Protonix 40 mg daily FEN/GI/PPx Fluids: IV LR 80mls/hr Electrolytes: monitor and replace as needed Nutrition: regular diet GI: Protonix as above PPx: SCDs prior to surgery ASA 81 mg PT following surgery as per orthopedics Tylenol 650 mg PRN Zofran 4 mg PRN Pt DW Dr Barba <Sreekanth Gamboa R1Janel V - 02/15/18 17:18> - Attending Attestation The exam, history, and the medical decision-making described in the above note were completed with the assistance of the resident physician. I reviewed and agree with the findings presented. I attest that I had a [id number] encounter with the patient on the same day, and personally performed and documented my assessment and findings in the medical record. <Cecilio Barba - 02/16/18 12:46> <Janel Uriarte V - Last Filed: 02/15/18 17:16> (1) Septic arthritis Qualifiers: Septic arthritis location: knee Laterality: left <Cecilio Barba - Last Filed: 02/16/18 12:46> (1) Septic arthritis Qualifiers: Septic arthritis location: knee Laterality: left <SreekanthJanel Mejía V - Last Filed: 02/15/18 17:16> (1) Septic arthritis Qualifiers: Septic arthritis location: knee Laterality: left <Cecilio Barba - Last Filed: 02/16/18 12:46> (1) Septic arthritis Qualifiers: Septic arthritis location: knee Laterality: left
[2018-02-15] MEDS ORDERED: Zolpidem Tartrate 5 MG Tablet PO PRN (21:00)
--- NOTE | 2018-02-16 00:52 | ECG ---
Date Performed: 02/14/2018 Time Performed: 13:35:22 PTAGE: 77 years EKG: Sinus rhythm POSSIBLE LEFT ATRIAL ENLARGEMENT BORDERLINE ECG PREVIOUS TRACING : 09/05/2017 11.48 Since the previous tracing, no significant change noted DOCTOR: Manuel Arguello Interpretating Date/Time 02/16/2018 00:51:07
[2018-02-16] MEDS: Vancomycin Inj 1,500 MG in Sodium Chlor 0.9% Inj 500 ML IV.SIG SCH ×2 (03:46→15:14)
[2018-02-16] MEDS: Sod Chloride 0.9% Inj 1,000 ML IV.CONT SCH (03:46)
[2018-02-16] MEDS: ceFAZolin 2 GM Premix Inj 2 GM/50 ML PIGGYBACK IV.SIG SCH (03:47)
[2018-02-16] MEDS: Ketorolac Inj 30 MG/ML (IVP) Vial IV.PUSH SCH ×4 (06:06→23:59)
[2018-02-16] MEDS: Senna/Docusate Sodium 8.6/50 MG Tablet PO SCH ×2 (09:35→21:01)
[2018-02-16] MEDS: Ezetimibe 10 MG Tablet PO SCH (09:36)
[2018-02-16] MEDS: Folic Acid 1 MG Tablet PO SCH (09:36)
[2018-02-16] MEDS: hydroCHLOROthiazide 25 MG Tablet PO SCH (09:36)
[2018-02-16 09:57] LABS: Hematocrit 32.3 % (39.0-51.0); Hemoglobin 11.2 gm/dL (13.0-17.0)
--- NOTE | 2018-02-16 10:06 | P.PNOP ---
Subjective Interval history: Postop day #1 He is doing relatively well. He has minimal complaints at this time. Physical therapy reports that ambulation was deferred. The range of motion was 0 degrees of extension to 80 degrees of flexion. Physical Exam Vital signs: Vital Signs 02/15/18 10:41 02/15/18 11:00 02/15/18 11:15 Temperature 98.2 F 98.3 F Pulse Rate 81 71 80 Respiratory Rate 19 20 19 Blood Pressure 148/67 H 133/64 118/55 L Pulse Oximetry 92 L 92 L 95 02/15/18 12:03 02/15/18 13:17 02/15/18 16:37 Temperature 98.1 F 98.3 F Pulse Rate 66 71 Respiratory Rate 16 16 14 Blood Pressure 82/52 L 96/52 L Pulse Oximetry 95 96 02/15/18 17:55 02/15/18 20:00 02/16/18 00:00 Temperature 97.9 F 97.7 F Pulse Rate 87 74 Respiratory Rate 16 20 Blood Pressure 99/70 L 90/57 L Pulse Oximetry 95 92 L 4 L 02/16/18 04:00 02/16/18 08:00 Temperature 97.8 F 98.2 F Pulse Rate 70 68 Respiratory Rate 18 18 Blood Pressure 113/56 L 119/59 L Pulse Oximetry 92 L 93 L Intake & Output 02/15/18 02/16/18 02/16/18 18:59 06:59 18:59 Intake Total 3074.3 / 3074.3 1615 / 1615 Output Total 400 / 400 260 / 260 300 / 300 Balance 2674.3 / 2674.3 1355 / 1355 -300 / -300 Weight 98 kg Intake: IV 2374.3 / 2374.3 1615 / 1615 NS Inj 1,000 ML @ 130 mls/hr IV 1550 / 1550 1000 / 1000 .CONT .Q7H42M [facility] Rx#:[id number] Cyklokapron Inj 930 MG In NS 109.3 / 109.3 Inj 100 ML @ 200 mls/hr IV.SIG ONCE [facility] Rx#:[id number] Vancomycin Inj 1,500 MG In NS 515 / 515 515 / 515 Inj 500 ML @ 250 mls/hr IV.SIG Q12H [facility] Rx#:[id number] Ancef 1 GM Premix Inj 3 gm In 150 / 150 150 ml @ 0 mls/hr IV.SIG .STK- MED ONE Rx#:[id number] Ancef 2 GM Premix Inj 2 gm In 50 / 50 100 / 100 50 ml @ 100 mls/hr IV.SIG Q6H [facility] Rx#:[id number] Anesthesia Amount 700 / 700 Output: Urine 200 / 200 200 / 200 300 / 300 Estimated Blood Loss 200 / 200 Wound Drainage 60 / 60 # 1 Left Knee Hemovac 60 / 60 Other: # Voids 4 Date of Last Bowel Movement 02/14/18 02/14/18 Narrative: He is resting comfortably, out of bed in the chair. His neurovascular status is intact. His dressing is dry and intact. Wound drainage was measured only once since surgery and was 60 mL. Results - Labs CBC & Chem 7: 02/16/18 07:57 02/15/18 04:56 Laboratory Results - last 24 hr 02/16/18 07:57 Hgb 11.2 L Hct 32.3 L Microbiology 02/15/18 08:48 Fluid - Other Gram Stain - Final 02/15/18 08:48 Tissue - Knee Gram Stain - Final 02/14/18 15:45 Fluid - Synovial Fluid Gram Stain - Final 02/14/18 15:45 Fluid - Synovial Fluid Body Fluid Culture - Preliminary Group D Enterococcus 02/14/18 13:15 Blood - Peripheral Aerobic Blood Culture - Preliminary Enterococcus faecalis 02/14/18 13:15 Blood - Peripheral Anaerobic Blood Culture - Preliminary gram positive cocci 02/14/18 13:20 Blood - Peripheral Aerobic Blood Culture - Preliminary gram positive cocci 02/14/18 13:20 Blood - Peripheral Anaerobic Blood Culture - Preliminary gram positive cocci - Imaging Impressions Knee X-Ray 02/15/18 10:23 CONCLUSION: Good appearance of the total knee replacement. - Procedures Arthrotomy, left knee with synovectomy, irrigation and excisional debridement and tibial polyethylene exchange, left total knee, on 02/15/2018. Assessment and Plan - Ortho Post Op Day # 1 - Problem List (1) Pyogenic bacterial arthritis of left knee Code(s): M00.862 - Arthritis due to other bacteria, left knee Status: Acute (2) Status post total left knee replacement using cement Code(s): Z96.652 - Presence of left artificial knee joint Status: Chronic Onset Date: 05/23/04 - Assessment and Plan Condition: Good. Orthopedically stable. DVT prophylaxis: TEDs, aspirin, sequentials. Discharge plans: Home with home health care. He will need to be on parenteral antibiotics possibly for up to 6 weeks; however I will leave this up to the infectious disease specialist, Dr. Kim. An appointment will need to be scheduled for 3-4 weeks. There is still a possibility that he will need to have another operation within the next several days to weeks. This would possibly be a repeat arthrotomy and debridement with removal of implants and placement of an antibiotic laden dynamic cement spacer. Dr. Kim's assistance is appreciated. I will continue to follow the patient.
--- NOTE | 2018-02-16 12:10 | P.PNFP ---
Subjective Interval history: COLLEENLITZY. Pain well controlled, ambulated down the hallway with PT this morning, voiding, but reduced PO intake per his . States he is a picky eater but does like vanilla Ensure which will be ordered TID. Discussed that initial blood cx were positive for enterococcus faecalis and gram positives which will require repeat cultures until blood cultures are clear x48 hours. Dr Kim has indicated he will keep the pt on Vancomycin until sensitivities are known. Has been afebrile to date with stable VS. Denies CP, SOB, N/V/D, abdominal or leg pain. Results - Labs Result diagrams: 02/16/18 07:57 02/15/18 04:56 Abnormal lab results 02/16/18 Range/Units 07:57 Hgb 11.2 L (13.0-17.0) gm/dL Hct 32.3 L (39.0-51.0) % Short CBC 02/16/18 Range/Units 07:57 Hgb 11.2 L (13.0-17.0) gm/dL Hct 32.3 L (39.0-51.0) % Physical Exam Vital signs: Vital Signs 02/15/18 13:17 02/15/18 16:37 02/15/18 17:55 Temperature 98.1 F 98.3 F Pulse Rate 66 71 Respiratory Rate 16 14 Blood Pressure 82/52 L 96/52 L Pulse Oximetry 95 96 95 02/15/18 20:00 02/16/18 00:00 02/16/18 04:00 Temperature 97.9 F 97.7 F 97.8 F Pulse Rate 87 74 70 Respiratory Rate 16 20 18 Blood Pressure 99/70 L 90/57 L 113/56 L Pulse Oximetry 92 L 4 L 92 L 02/16/18 08:00 Temperature 98.2 F Pulse Rate 68 Respiratory Rate 18 Blood Pressure 119/59 L Pulse Oximetry 93 L Intake & Output 02/15/18 02/16/18 02/16/18 18:59 06:59 18:59 Intake Total 3074.3 / 3074.3 1615 / 1615 Output Total 400 / 400 260 / 260 300 / 300 Balance 2674.3 / 2674.3 1355 / 1355 -300 / -300 Weight 98 kg Intake: IV 2374.3 / 2374.3 1615 / 1615 NS Inj 1,000 ML @ 130 mls/hr IV 1550 / 1550 1000 / 1000 .CONT .Q7H42M [facility] Rx#:[id number] Cyklokapron Inj 930 MG In NS 109.3 / 109.3 Inj 100 ML @ 200 mls/hr IV.SIG ONCE [facility] Rx#:[id number] Vancomycin Inj 1,500 MG In NS 515 / 515 515 / 515 Inj 500 ML @ 250 mls/hr IV.SIG Q12H [facility] Rx#:[id number] Ancef 1 GM Premix Inj 3 gm In 150 / 150 150 ml @ 0 mls/hr IV.SIG .STK- MED ONE Rx#:[id number] Ancef 2 GM Premix Inj 2 gm In 50 / 50 100 / 100 50 ml @ 100 mls/hr IV.SIG Q6H [facility] Rx#:[id number] Anesthesia Amount 700 / 700 Output: Urine 200 / 200 200 / 200 300 / 300 Estimated Blood Loss 200 / 200 Wound Drainage 60 / 60 # 1 Left Knee Hemovac 60 / 60 Other: # Voids 4 Date of Last Bowel Movement 02/14/18 02/14/18 Narrative: GENERAL: 77 YO male sitting in bedside chair in [facility]. SKIN: Warm and dry. No lesions or rash. HEAD: Normocephalic. Atraumatic. MMM. EOMI. EYES: No scleral icterus. No injection or drainage. NECK: Supple, trachea midline. CARDIOVASCULAR: Regular rate and rhythm without murmurs, gallops, or rubs. RESPIRATORY: Breath sounds equal bilaterally. No accessory muscle use. GASTROINTESTINAL: Abdomen soft, non-tender, nondistended. MUSCULOSKELETAL: No cyanosis. The left knee is wrapped with an Leonardo bandage that is c/d/i and draining approx 60 cc serosanguinous fluid into a drain. Assessment and Plan - Assessment (1) Septic arthritis Code(s): M00.9 - Pyogenic arthritis, unspecified Status: Acute (2) Bacteremia Code(s): R78.81 - Bacteremia Status: Acute (3) Pyogenic bacterial arthritis of left knee Code(s): M00.862 - Arthritis due to other bacteria, left knee Status: Acute (4) Status post total left knee replacement using cement Code(s): Z96.652 - Presence of left artificial knee joint Status: Chronic Onset Date: 05/23/04 (5) Status post total replacement of left hip Code(s): Z96.642 - Presence of left artificial hip joint Status: Chronic - Assessment and Plan 77 YO male with PMHx RA, arthritis, HTN, peripheral neuropathy and skin cancer who is POD#1 after left knee arthrotomy with synovectomy, irrigation and excisional debridement and tibial polyethylene exchange, left total knee. Pt was also bacteremic and with sepsis on admission. Pt is currently stable. Septic arthritis of left knee -POD#1 as above, see OP report -Orthopedics consulted and Dr Smith is following -Fluid study growing Enterococcus faecalis -Cefepime 2g IV once in ED, and three doses post op -Vancomycin 1g IV once in ED -Pain: Toradol and [place] PRN -ID consulted with plan as below -IVF @ 130 mls/hr -May require return to operating room in 2-[address] Smith Bacteremia -Blood cultures 02/15 positive for Enterococcus faecalis x4; awaiting sensitivities -Vancomycin 1.5mg IV q12hr -ID consulted and following -Blood cx 02/16 pending RA -Methylprednisolone 4 mg PO daily -Cymbalta 60 mg daily HTN - has been hypotensive to normotensive; BP meds held yesterday and HCTZ held this morning -HCTZ 6.25 mg daily; hold if SBP<110 and/or DBP<60 and/or HR <55 (hold this one first) -Losartan 50 mg daily; hold if SBP<110 and/or DBP<60 and/or HR <55 Familial HLD -Zetia 10 mg daily -Pravastatin 20 mg hs GERD -Protonix 40 mg daily FEN/GI/PPx Fluids: IV 130mls/hr Electrolytes: monitor and replace as needed Nutrition: regular diet GI: Protonix as above PPx: SCDs / SASCHA hose ASA 81 mg PT following surgery as per orthopedics Tylenol 650 mg PRN Zofran 4 mg PRN Dispo: Pt will be cleared by Dr Smith, have Blood cx with NGTD >48 hours, PICC line and IV abx as determined by ID prior to discharge, likely 5-[address] Barba (1) Septic arthritis Qualifiers: Septic arthritis location: knee Laterality: left
[2018-02-16 16:07] LABS: Baso % (Auto) 0.1 % (0.0-2.0); Eos # (Auto) 0.3 th/mm3 (0.0-0.4); Eos % (Auto) 2.8 % (0.0-4.0); Hemoglobin 11.8 gm/dL (13.0-17.0); Lymph # (Auto) 0.5 th/mm3 (1.0-4.8); Lymph % (Auto) 5.6 % (9.0-44.0); Mean Corpuscular HGB Conc 34.6 % (32.0-36.0); Mean Corpuscular Hemoglobin 31.4 pg (27.0-34.0); Mean Corpuscular Volume 90.6 fL (80.0-100.0); Mean Platelet Volume 7.2 fL (7.0-11.0); Mono # (Auto) 0.7 th/mm3 (0.0-0.9); Mono % (Auto) 7.5 % (0.0-8.0); Neut # (Auto) 7.5 th/mm3 (1.8-7.7); Platelet Count 254 th/mm3 (150-450); Red Blood Count 3.75 mil/mm3 (4.50-5.90); Red Cell Distribution Width 14.9 % (11.6-17.2)
[2018-02-16 16:31] LABS: Alanine Aminotransferase 21 U/L (12-78); Albumin 2.1 g/dL (3.4-5.0); Anion Gap 7 meq/L (5-15); Blood Urea Nitrogen 15 mg/dL (7-18); Calcium 7.9 mg/dL (8.5-10.1); Carbon Dioxide 25.1 meq/L (21.0-32.0); Chloride 103 meq/L (98-107); Glomerular Filtration Rate 76 mL/min (>89); Glucose,Random 135 mg/dL (74-106); Sodium 135 meq/L (136-145)
[2018-02-16 16:47] LABS: Alkaline Phosphatase 47 U/L (45-117); Aspartate Aminotransferase 37 U/L (15-37); Total Protein 5.9 g/dL (6.4-8.2)
[2018-02-17] MEDS: Vancomycin Inj 1,500 MG in Sodium Chlor 0.9% Inj 500 ML IV.SIG SCH (02:53)
[2018-02-17] MEDS: Ketorolac Inj 30 MG/ML (IVP) Vial IV.PUSH SCH (05:42)
--- NOTE | 2018-02-17 09:43 | P.PNOP ---
Subjective Interval history: Postop day #2 He is doing relatively well. He has minimal complaints related to his knee. He has very little pain. Physical therapy reports that the ambulation distance was 80 feet. The range of motion was 0 degrees of extension to 90 degrees of flexion. Physical Exam Vital signs: Vital Signs 02/16/18 12:00 02/16/18 16:00 02/16/18 20:00 Temperature 97.5 F L 97.8 F 98.5 F Pulse Rate 66 68 68 Respiratory Rate 18 18 17 Blood Pressure 115/70 129/65 141/68 H Pulse Oximetry 95 94 L 99 02/17/18 00:00 02/17/18 04:00 02/17/18 07:45 Temperature 97.5 F L 97.4 F L 97.3 F L Pulse Rate 69 63 64 Respiratory Rate 18 18 20 Blood Pressure 140/58 L 116/64 145/70 H Pulse Oximetry 93 L 94 L 96 Intake & Output 02/16/18 02/17/18 02/17/18 18:59 06:59 18:59 Intake Total 740 / 740 515 / 515 Output Total 300 / 300 800 / 800 Balance 440 / 440 -285 / -285 Weight 100.6 kg Intake: IV 515 / 515 Vancomycin Inj 1,500 MG In NS 515 / 515 Inj 500 ML @ 250 mls/hr IV.SIG Q12H [facility] Rx#:[id number] Oral 740 / 740 Output: Urine 300 / 300 800 / 800 Other: # Voids 2 Date of Last Bowel Movement 02/14/18 # Bowel Movements 1 Narrative: He is sitting out of bed in the chair, resting comfortably. The dressing is dry and intact. His neurovascular status is intact. There is no recording on updated wound drainage. Results - Labs CBC & Chem 7: 02/17/18 07:24 02/16/18 15:37 Laboratory Results - last 24 hr 02/16/18 02/16/18 02/16/18 07:57 15:37 15:37 WBC 9.0 RBC 3.75 L Hgb 11.2 L 11.8 L Hct 32.3 L 34.0 L MCV 90.6 MCH 31.4 MCHC 34.6 RDW 14.9 Plt Count 254 MPV 7.2 Neut % (Auto) 84.0 H Lymph % (Auto) 5.6 L [place] % (Auto) 7.5 Eos % (Auto) 2.8 Baso % (Auto) 0.1 Neut # (Auto) 7.5 Lymph # (Auto) 0.5 L [place] # (Auto) 0.7 Eos # (Auto) 0.3 Baso # (Auto) 0.0 WBC Differential . Differential Comment Auto diff final Sodium 135 L Potassium 4.0 Chloride 103 Carbon Dioxide 25.1 Anion Gap 7 BUN 15 Creatinine 0.96 Estimated GFR 76 L Random Glucose 135 H Calcium 7.9 L Total Bilirubin 0.3 AST 37 ALT 21 Alkaline Phosphatase 47 Total Protein 5.9 L Albumin 2.1 L Microbiology 02/14/18 15:45 Fluid - Synovial Fluid Gram Stain - Final 02/14/18 15:45 Fluid - Synovial Fluid Body Fluid Culture - Preliminary Group D Enterococcus 02/15/18 08:48 Tissue - Knee Gram Stain - Final 02/15/18 08:48 Tissue - Knee Wound Culture - Preliminary Group D Enterococcus 02/15/18 08:48 Fluid - Other Gram Stain - Final 02/15/18 08:48 Fluid - Other Wound Culture - Preliminary Group D Enterococcus 02/15/18 08:48 Fluid - Other Fungal Smear - Final No fungal elements seen 02/15/18 08:48 Tissue - Knee Fungal Smear - Final No fungal elements seen 02/14/18 13:20 Blood - Peripheral Aerobic Blood Culture - Preliminary Enterococcus faecalis 02/14/18 13:20 Blood - Peripheral Anaerobic Blood Culture - Preliminary Enterococcus faecalis 02/14/18 13:15 Blood - Peripheral Aerobic Blood Culture - Preliminary Enterococcus faecalis 02/14/18 13:15 Blood - Peripheral Anaerobic Blood Culture - Preliminary Enterococcus faecalis - Procedures Arthrotomy, left knee with synovectomy, irrigation and excisional debridement and tibial polyethylene exchange, left total knee, on 02/15/2018. Assessment and Plan - Ortho Post Op Day # 2 - Assessment and Plan Condition: Good. Orthopedically stable. DVT prophylaxis: TEDs, aspirin, sequentials. Discharge plans: Home with home health care. He will need to be on parenteral antibiotics possibly for up to 6 weeks; however I will leave this up to the infectious disease specialist, Dr. Kim. Spoken with Dr. Kim this morning. He agrees to set this up for his antibiotic therapy. An appointment will need to be scheduled with Dr. Smith for 3-4 weeks. There is still a possibility that he will need to have another operation within the next several days to weeks. This would possibly be a repeat arthrotomy and debridement with removal of implants and placement of an antibiotic laden dynamic cement spacer. In the event that this type of procedure would be necessary, he would also need a repeat procedure at some point in the future to convert this to a revised total knee replacement. Dr. Kim's assistance is appreciated. I have also discussed with the nurse the necessity for following instructions as far as recording drainage so that I can make appropriate decisions relating to his care. I will continue to follow the patient.
[2018-02-17 09:50] LABS: Hematocrit 32.6 % (39.0-51.0); Hemoglobin 11.1 gm/dL (13.0-17.0)
[2018-02-17] MEDS: Ezetimibe 10 MG Tablet PO SCH (09:50)
[2018-02-17] MEDS: Folic Acid 1 MG Tablet PO SCH (09:51)
[2018-02-17] MEDS: Senna/Docusate Sodium 8.6/50 MG Tablet PO SCH ×2 (09:53→21:40)
[2018-02-17] MEDS: hydroCHLOROthiazide 25 MG Tablet PO SCH (09:55)
--- NOTE | 2018-02-17 10:23 | P.PNFP ---
Subjective Interval history: Patient seen and evaluated this morning. He reports feeling well, he states his pain is well controlled. Patient's appetite is back to his normal baseline. However very concentrated urine is seen next to his bed on urinal. Discussed with patient that were still waiting for cultures and sensitivities of his bacteria. Patient has questions of lengths of state as well as IV antibiotic treatment. Defer dispensers to infectious disease team. Patient denies shortness of breath, chest pain, nausea or vomiting. Discussed with patient importance of incentive spirometer use due to some low O2 saturations yesterday. Patient complains of scratchy throat after intubation, is using some cough drops. <Sreekanth Gamoba Janel Simmons V - 02/17/18 10:23> Results - Labs Result diagrams: 02/18/18 06:06 02/18/18 06:06 <Cecilio Barba - 02/18/18 09:17> Abnormal lab results 02/17/18 02/17/18 02/18/18 Range/Units 07:24 07:24 06:06 RBC 3.67 L (4.50-5.90) mil/mm3 Hgb 11.1 L 11.3 L (13.0-17.0) gm/dL Hct 32.6 L 32.5 L (39.0-51.0) % Estimated GFR 82 L (>89) mL/min Calcium 8.2 L (8.5-10.1) mg/dL 02/18/18 Range/Units 06:06 RBC (4.50-5.90) mil/mm3 Hgb (13.0-17.0) gm/dL Hct (39.0-51.0) % Estimated GFR (>89) mL/min Calcium 8.3 L (8.5-10.1) mg/dL Short CBC 02/17/18 02/18/18 Range/Units 07:24 06:06 WBC 9.4 (4.0-11.0) th/mm3 Hgb 11.1 L 11.3 L (13.0-17.0) gm/dL Hct 32.6 L 32.5 L (39.0-51.0) % Plt Count 305 (150-450) th/mm3 BMP 02/17/18 02/18/18 07:24 06:06 Sodium 138 139 Potassium 4.0 3.6 Chloride 104 104 Carbon Dioxide 26.7 27.2 BUN 15 12 Creatinine 0.90 0.79 Calcium 8.2 L 8.3 L <FredaCecilio - 02/18/18 09:17> Abnormal lab results 02/16/18 02/16/18 02/17/18 Range/Units 15:37 15:37 07:24 RBC 3.75 L (4.50-5.90) mil/mm3 Hgb 11.8 L 11.1 L (13.0-17.0) gm/dL Hct 34.0 L 32.6 L (39.0-51.0) % Neut % (Auto) 84.0 H (16.0-70.0) % Lymph % (Auto) 5.6 L (9.0-44.0) % Lymph # (Auto) 0.5 L (1.0-4.8) th/mm3 Sodium 135 L (136-145) meq/L Estimated GFR 76 L (>89) mL/min Random Glucose 135 H (74-106) mg/dL Calcium 7.9 L (8.5-10.1) mg/dL Total Protein 5.9 L (6.4-8.2) g/dL Albumin 2.1 L (3.4-5.0) g/dL Short CBC 02/16/18 02/17/18 Range/Units 15:37 07:24 WBC 9.0 (4.0-11.0) th/mm3 Hgb 11.8 L 11.1 L (13.0-17.0) gm/dL Hct 34.0 L 32.6 L (39.0-51.0) % Plt Count 254 (150-450) th/mm3 [facility] 02/16/18 15:37 Sodium 135 L Potassium 4.0 Chloride 103 Carbon Dioxide 25.1 BUN 15 Creatinine 0.96 Calcium 7.9 L Liver Function 02/16/18 Range/Units 15:37 Total Bilirubin 0.3 (0.2-1.0) mg/dL AST 37 (15-37) U/L ALT 21 (12-78) U/L Alkaline Phosphatase 47 (45-117) U/L Albumin 2.1 L (3.4-5.0) g/dL <Janel Uriarte V - 02/17/18 10:23> Physical Exam Vital signs: Vital Signs 02/17/18 10:05 02/17/18 16:00 02/17/18 20:00 Temperature 98.4 F 97.8 F Pulse Rate 63 68 Respiratory Rate 20 20 Blood Pressure 147/70 H 168/82 H Pulse Oximetry 94 L 95 95 02/18/18 00:00 02/18/18 04:00 Temperature 97.8 F 97.3 F L Pulse Rate 62 64 Respiratory Rate 20 20 Blood Pressure 166/84 H 179/86 H Pulse Oximetry 96 96 Intake & Output 02/17/18 02/18/18 02/18/18 18:59 06:59 18:59 Intake Total 1615 / 1615 Output Total 100 / 100 1300 / 1300 320 / 320 Balance 1515 / 1515 -1300 / -1300 -320 / -320 Weight 100.6 kg 99.1 kg Intake: IV 1615 / 1615 Cubicin Inj 600 MG In NS Inj 100 / 100 100 ML @ 200 mls/hr IV.SIG Q24H ANTHONY Rx#:[id number] Vancomycin Inj 1,500 MG In NS 515 / 515 Inj 500 ML @ 250 mls/hr IV.SIG Q12H ANTHONY Rx#:[id number] Output: Urine 1300 / 1300 320 / 320 Wound Drainage 100 / 100 # 1 Left Knee Hemovac 100 / 100 Other: Date of Last Bowel Movement 02/17/18 02/17/18 <Cecilio Barba - 02/18/18 09:17> Vital Signs 02/16/18 12:00 02/16/18 16:00 02/16/18 20:00 Temperature 97.5 F L 97.8 F 98.5 F Pulse Rate 66 68 68 Respiratory Rate 18 18 17 Blood Pressure 115/70 129/65 141/68 H Pulse Oximetry 95 94 L 99 02/17/18 00:00 02/17/18 04:00 02/17/18 07:45 Temperature 97.5 F L 97.4 F L 97.3 F L Pulse Rate 69 63 64 Respiratory Rate 18 18 20 Blood Pressure 140/58 L 116/64 145/70 H Pulse Oximetry 93 L 94 L 96 02/17/18 10:05 Temperature Pulse Rate Respiratory Rate Blood Pressure Pulse Oximetry 94 L Intake & Output 02/16/18 02/17/18 02/17/18 18:59 06:59 18:59 Intake Total 740 / 740 515 / 515 515 / 515 Output Total 300 / 300 800 / 800 Balance 440 / 440 -285 / -285 515 / 515 Weight 100.6 kg Intake: IV 515 / 515 515 / 515 Vancomycin Inj 1,500 MG In NS 515 / 515 515 / 515 Inj 500 ML @ 250 mls/hr IV.SIG Q12H ANTHONY Rx#:[id number] Oral 740 / 740 Output: Urine 300 / 300 800 / 800 Other: # Voids 2 Date of Last Bowel Movement 02/14/18 # Bowel Movements 1 <Janel Uriarte V - 02/17/18 10:23> Narrative: GENERAL: 77 yo male sitting in bed in [facility]. SKIN: Warm and dry. No lesions or rash. EYES: No scleral icterus. No injection or drainage. CARDIOVASCULAR: Regular rate and rhythm without murmurs, gallops, or rubs. RESPIRATORY: Breath sounds equal bilaterally. No accessory muscle use. GASTROINTESTINAL: Abdomen soft, non-tender, nondistended. MUSCULOSKELETAL: No cyanosis. The left knee is wrapped with an Leonardo bandage that is c/d/i and draining approx 60 cc serosanguinous fluid into a drain. Pt able to move L leg side to side without difficulties. <Janel Uriarte V - 02/17/18 10:23> Assessment and Plan - Assessment (1) Septic arthritis Code(s): M00.9 - Pyogenic arthritis, unspecified Status: Acute (2) Bacteremia Code(s): R78.81 - Bacteremia Status: Acute (3) Pyogenic bacterial arthritis of left knee Code(s): M00.862 - Arthritis due to other bacteria, left knee Status: Acute (4) Status post total left knee replacement using cement Code(s): Z96.652 - Presence of left artificial knee joint Status: Chronic Onset Date: 05/23/04 (5) Status post total replacement of left hip Code(s): Z96.642 - Presence of left artificial hip joint Status: Chronic <Cecilio Barba - 02/18/18 09:17> (1) Septic arthritis Code(s): M00.9 - Pyogenic arthritis, unspecified Status: Acute (2) Bacteremia Code(s): R78.81 - Bacteremia Status: Acute (3) Pyogenic bacterial arthritis of left knee Code(s): M00.862 - Arthritis due to other bacteria, left knee Status: Acute (4) Status post total left knee replacement using cement Code(s): Z96.652 - Presence of left artificial knee joint Status: Chronic Onset Date: 05/23/04 (5) Status post total replacement of left hip Code(s): Z96.642 - Presence of left artificial hip joint Status: Chronic <Sreekanth SimmonsJanelSammie - 02/17/18 10:15> - Assessment and Plan 77 YO male with PMHx RA, arthritis, HTN, peripheral neuropathy and skin cancer who is POD#1 after left knee arthrotomy with synovectomy, irrigation and excisional debridement and tibial polyethylene exchange, left total knee. Pt was also bacteremic and with sepsis on admission. Pt is currently stable. Septic arthritis of left knee -POD#2 as above, see OP report -Orthopedics consulted and Dr Smith is following -Fluid study growing Enterococcus faecalis -Pain: Toradol and [place] PRN -May require return to operating room per Dr Smith Bacteremia -Blood cultures 02/15 positive for Enterococcus faecalis x4; sensitive to vancomycin. -Vancomycin 1.5mg IV q12hr -ID consulted and following -Blood cx 02/16 pending RA -Methylprednisolone 4 mg PO daily -Cymbalta 60 mg daily HTN - has been hypotensive to normotensive -HCTZ 6.25 mg daily; hold if SBP<110 and/or DBP<60 and/or HR <55 (hold this one first) -Losartan 50 mg daily; hold if SBP<110 and/or DBP<60 and/or HR <55 Familial HLD -Zetia 10 mg daily -Pravastatin 20 mg hs GERD -Protonix 40 mg daily FEN/GI/PPx Fluids: IV 130mls/hr Electrolytes: monitor and replace as needed Nutrition: regular diet GI: Protonix as above PPx: SCDs / SASCHA hose ASA 81 mg PT following surgery as per orthopedics Tylenol 650 mg PRN Zofran 4 mg PRN Dispo: Pt will be cleared by Dr Smith, have Blood cx with NGTD >48 hours, PICC line and IV abx as determined by ID prior to discharge, likely 5-[address] Barba <Sreekanth SimmonsSammie - 02/17/18 10:23> - Attending Attestation The exam, history, and the medical decision-making described in the above note were completed with the assistance of the resident physician. I reviewed and agree with the findings presented. I attest that I had a [id number] encounter with the patient on the same day, and personally performed and documented my assessment and findings in the medical record. <Cecilio Barba - 02/18/18 09:17> <Sreekanth Arguetaira Iris,Sammie - Last Filed: 02/17/18 10:15> (1) Septic arthritis Qualifiers: Septic arthritis location: knee Laterality: left <Cecilio Barba - Filed: 02/18/18 09:17> (1) Septic arthritis Qualifiers: Septic arthritis location: knee Laterality: left <Sreekanth Simmons,Sammie - Last Filed: 02/17/18 10:15> (1) Septic arthritis Qualifiers: Septic arthritis location: knee Laterality: left <Cecilio Barba Filed: 02/18/18 09:17> (1) Septic arthritis Qualifiers: Septic arthritis location: knee Laterality: left
[2018-02-17 10:33] LABS: Calcium 8.2 mg/dL (8.5-10.1); Carbon Dioxide 26.7 meq/L (21.0-32.0)
--- NOTE | 2018-02-17 11:00 | P.PNID ---
Subjective Remarks: Patient says he feels fine. Able to ambulate. Notes that his pain in the knee is 3/[address] in the left knee. Afebrile. Blood cultures and synovial fluid and wound culture has enterococcus faecalis. This is a 77-year-old white male who has rheumatoid arthritis. The patient developed pain in the left knee and was brought to the emergency department for evaluation. The patient also developed altered mental status prior to being brought to the emergency department. His was concerned about the mental status change. He reportedly was having confusion and difficulty answering simple questions. The mental status symptoms apparently improved by the time he got to the emergency department. PAST MEDICAL HISTORY: Arthritis, gastroesophageal reflux disease, hypercholesteremia, hypertension, neuropathy, rheumatoid arthritis, skin cancer, external hemorrhoids, history of shoulder arthroscopy, history of inguinal hernia repair, history of laminectomy, left knee replacement in 2004. Allergies/Adverse Reactions: Allergies chlorhexidine Allergy (Severe, Verified 02/14/18 12:37) Rash, Generalized hydroxychloroquine Allergy (Verified 02/14/18 12:37) Rash Objective Vital Signs 02/16/18 12:00 02/16/18 16:00 02/16/18 20:00 Temperature 97.5 F L 97.8 F 98.5 F Pulse Rate 66 68 68 Respiratory Rate 18 18 17 Blood Pressure 115/70 129/65 141/68 H Pulse Oximetry 95 94 L 99 02/17/18 00:00 02/17/18 04:00 02/17/18 07:45 Temperature 97.5 F L 97.4 F L 97.3 F L Pulse Rate 69 63 64 Respiratory Rate 18 18 20 Blood Pressure 140/58 L 116/64 145/70 H Pulse Oximetry 93 L 94 L 96 02/17/18 10:05 Temperature Pulse Rate Respiratory Rate Blood Pressure Pulse Oximetry 94 L Intake & Output 02/16/18 02/17/18 02/17/18 18:59 06:59 18:59 Intake Total 740 / 740 515 / 515 515 / 515 Output Total 300 / 300 800 / 800 50 / 50 Balance 440 / 440 -285 / -285 465 / 465 Weight 100.6 kg Intake: IV 515 / 515 515 / 515 Vancomycin Inj 1,500 MG In NS 515 / 515 515 / 515 Inj 500 ML @ 250 mls/hr IV.SIG Q12H ANTHONY Rx#:[id number] Oral 740 / 740 Output: Urine 300 / 300 800 / 800 Wound Drainage 50 / 50 # 1 Left Knee Hemovac 50 / 50 Other: # Voids 2 Date of Last Bowel Movement 02/14/18 # Bowel Movements 1 02/15/18 08:48 Fluid - Other Acid Fast Bacilli Smear - Final No acid fast bacilli seen 02/15/18 08:48 Fluid - Other Mycobacterial Culture - Pending 02/15/18 08:48 Tissue - Knee Acid Fast Bacilli Smear - Final No acid fast bacilli seen 02/15/18 08:48 Tissue - Knee Mycobacterial Culture - Pending 02/15/18 08:48 Fluid - Other Gram Stain - Final 02/15/18 08:48 Fluid - Other Wound Culture - Final Enterococcus faecalis 02/15/18 08:48 Tissue - Knee Gram Stain - Final 02/15/18 08:48 Tissue - Knee Wound Culture - Final Enterococcus faecalis 02/14/18 13:20 Blood - Peripheral Aerobic Blood Culture - Final Enterococcus faecalis 02/14/18 13:20 Blood - Peripheral Anaerobic Blood Culture - Final Enterococcus faecalis 02/14/18 13:15 Blood - Peripheral Aerobic Blood Culture - Final Enterococcus faecalis 02/14/18 13:15 Blood - Peripheral Anaerobic Blood Culture - Final Enterococcus faecalis 02/14/18 15:45 Fluid - Synovial Fluid Gram Stain - Final 02/14/18 15:45 Fluid - Synovial Fluid Body Fluid Culture - Final Enterococcus faecalis 02/16/18 13:55 Blood - Peripheral Aerobic Blood Culture - Pending 02/16/18 13:55 Blood - Peripheral Anaerobic Blood Culture - Pending 02/16/18 13:48 Blood - Peripheral Aerobic Blood Culture - Pending 02/16/18 13:48 Blood - Peripheral Anaerobic Blood Culture - Pending 02/15/18 08:48 Fluid - Other Fungal Smear - Final No fungal elements seen 02/15/18 08:48 Fluid - Other Fungal Culture - Pending 02/15/18 08:48 Tissue - Knee Fungal Smear - Final No fungal elements seen 02/15/18 08:48 Tissue - Knee Fungal Culture - Pending 02/14/18 13:11 Nasal Wash Influenza Types A,B Antigen - Final Negative for FLU A and B antigen Infection due to influenza A or B cannot be ruled out since the antigen present in the sample may be below the detection limit of the test. Lab - Hematology Results 02/16/18 02/16/18 02/17/18 07:57 15:37 07:24 WBC 9.0 RBC 3.75 L Hgb 11.2 L 11.8 L 11.1 L Hct 32.3 L 34.0 L 32.6 L MCV 90.6 MCH 31.4 MCHC 34.6 RDW 14.9 Plt Count 254 MPV 7.2 Neut % (Auto) 84.0 H Lymph % (Auto) 5.6 L [place] % (Auto) 7.5 Eos % (Auto) 2.8 Baso % (Auto) 0.1 Neut # (Auto) 7.5 Lymph # (Auto) 0.5 L [place] # (Auto) 0.7 Eos # (Auto) 0.3 Baso # (Auto) 0.0 WBC Differential . Differential Comment Auto diff final Lab - Chemistry Results 02/16/18 02/17/18 15:37 07:24 Sodium 135 L 138 Potassium 4.0 4.0 Chloride 103 104 Carbon Dioxide 25.1 26.7 Anion Gap 7 7 BUN 15 15 Creatinine 0.96 0.90 Estimated GFR 76 L 82 L Random Glucose 135 H 94 Calcium 7.9 L 8.2 L Total Bilirubin 0.3 AST 37 ALT 21 Alkaline Phosphatase 47 Total Protein 5.9 L Albumin 2.1 L Imaging: ITS Impressions Chest X-Ray 02/14/18 12:30 CONCLUSION: No acute cardiopulmonary disease. Head CT 02/14/18 12:30 CONCLUSION: 1. No acute intracranial abnormality. 2. 2 cm mass-like lesion within the posterior nasopharynx which may represent a Thornwaldt cyst or other soft tissue mass. ENT evaluation of this finding may be helpful with direct visualization. 3. Mucus retention cyst within the sphenoid sinuses bilaterally. . Aspiration 02/14/18 13:30 CONCLUSION: 1. Uncomplicated left knee aspiration as above. Knee X-Ray 02/15/18 10:23 CONCLUSION: Good appearance of the total knee replacement. Physical Exam: PHYSICAL EXAMINATION: GENERAL: Patient in no acute distress. HEENT: Head is atraumatic. Extraocular movements grossly intact. Pupils reactive to light. No icterus. No conjunctival erythema. Oropharyngeal mucosa is moist. No visible lesions. NECK: Supple without adenopathy or swelling. LUNGS: Decreased breath sounds. HEART: Regular S1 and S2, which are distant. ABDOMEN: Bowel sounds present. Soft, nontender. EXTREMITIES: Left knee is wrapped in a surgical dressing and there is a Hemovac in place. There is bloody drainage in the catheter. SKIN: No diffuse rash. NEUROLOGIC: No gross focal findings. PSYCHIATRIC: Calm and cooperative. Assessment and Plan - Plan IMPRESSION: 1. Sepsis due to Enterococcus faecalis. Source left knee septic arthritis. 2. Septic arthritis of the left knee. Enterococcus faecalis. RECOMMENDATIONS: 1. Stop vancomycin. 2. Begin Daptomycin IV. 3. Arrange for outpatient IV daptomycin once daily until March 27, 2018. Orders written for case management to arrange. 3. PICC line insertion. Orders written for PICC line. 4. The blood cultures which were repeated can be followed as an outpatient if the patient is discharged. Consider giving p.o. ampicillin suppressive treatment for 6 months after the course of the IV antibiotic is completed. Hold pravastatin while he is on the daptomycin. Weekly BMP and CPK level to be followed while on daptomycin. Patient can be discharged from ID standpoint when the arrangements for outpatient antibiotics is made. Case management has been notified to work on the antibiotics for discharge. Discussed with pediatrician/medical doctor.
--- NOTE | 2018-02-17 11:06 | P.DCO ---
Post Hospital Infusion Therapy - Infusion Therapy Location of Infusion Therapy: Home Health Care IV Infusion Order - Patient Information Patient Weight: 100.6 kg - Diagnosis (1) Septic arthritis Code(s): M00.9 - Pyogenic arthritis, unspecified (2) Pyogenic bacterial arthritis of left knee Code(s): M00.862 - Arthritis due to other bacteria, left knee (3) Status post total left knee replacement using cement Code(s): Z96.652 - Presence of left artificial knee joint - Administer Medication Daptomycin Dose: 600 mg IV Directions: q 24 hours Stop Treatment: 03/27/18 - Additional Information Venous Access: PICC Line Additional Instructions: [x] Peripheral flush and dressing changes per protocol [x] Implanted port and central transmission line engineer: * Implanted port: 10 ml Normal Saline followed by 5 ml Heparin 100 units/ml Heparin flush after each use and monthly to maintain. [] May leave port accessed during therapy. [] May leave peripheral site accessed for duration of therapy. [x] If patient has SOB or respiratory distress, check oxygen saturation. If less than 90% or clinical signs of respiratory distress, administer oxygen at 2 L/min. via nasal cannula and notify physician. [x] Anaphylaxis/Reaction orders: * Stop infusion. * Keep IV line open with saline flush. * Notify physician. * Monitor vital signs every 15 minutes until symptoms resolve. * Check Oxygen saturation; Oxygen at 2 L/min. via nasal cannula if less than 90% or clinical signs of respiratory distress. * Administer diphenhydramine (Benadryl) 25 mg IV STAT, (unless patient has received as pre-med). May repeat once, if necessary. * Solu-Cortef 250 mg IVP over 30-60 seconds, use 100 mg vials for each dissolution. * Epinephrine (1mg/1 ml) 0.3 mg subcutaneously or IVP now with any signs of respiratory distress. * Check with physician for new additional pre-med orders if patient is re- challenged or re-treated. [x] May remove PICC line when treatment complete, after confirming with Physician. [x] If the patient is admitted to the hospital, the ED, or transferred via [facility] , complete transfer form including medication reconciliation order sheet. Weekly Labs: BMP, Serum CK Levels - Case Management Consult Case Management Consult-IVF: Yes - Patient Information Allergies chlorhexidine Allergy (Severe, Verified 12/21/18 12:37) Rash, Generalized hydroxychloroquine Allergy (Verified 02/14/18 12:37) Rash (1) Septic arthritis Qualifiers: Septic arthritis location: knee Laterality: left
[2018-02-17] MEDS: DAPTOmycin Inj 600 MG in Sodium Chlor 0.9% Inj 100 ML IV.SIG SCH (14:04)
[2018-02-17] MEDS: Sod Chloride 0.9% Inj 1,000 ML IV.CONT SCH (14:45)
[2018-02-18 07:10] LABS: Hematocrit 32.5 % (39.0-51.0); Hemoglobin 11.3 gm/dL (13.0-17.0); Mean Corpuscular HGB Conc 34.8 % (32.0-36.0); Mean Corpuscular Hemoglobin 30.9 pg (27.0-34.0); Mean Corpuscular Volume 88.7 fL (80.0-100.0); Mean Platelet Volume 7.1 fL (7.0-11.0); Platelet Count 305 th/mm3 (150-450); Red Blood Count 3.67 mil/mm3 (4.50-5.90); Red Cell Distribution Width 13.9 % (11.6-17.2); White Blood Count 9.4 th/mm3 (4.0-11.0)
[2018-02-18 07:20] LABS: Anion Gap 8 meq/L (5-15); Blood Urea Nitrogen 12 mg/dL (7-18); Calcium 8.3 mg/dL (8.5-10.1); Carbon Dioxide 27.2 meq/L (21.0-32.0); Chloride 104 meq/L (98-107); Glomerular Filtration Rate Greater Than 89 mL/min (>89); Glucose,Random 93 mg/dL (74-106); Potassium 3.6 meq/L (3.5-5.1); Sodium 139 meq/L (136-145)
[2018-02-18] MEDS: Folic Acid 1 MG Tablet PO SCH (08:39)
[2018-02-18] MEDS: Senna/Docusate Sodium 8.6/50 MG Tablet PO SCH ×2 (08:40→22:38)
[2018-02-18] MEDS: Ezetimibe 10 MG Tablet PO SCH (08:41)
[2018-02-18] MEDS: hydroCHLOROthiazide 25 MG Tablet PO SCH (08:43)
--- NOTE | 2018-02-18 09:35 | P.PNOP ---
Subjective Interval history: Postop day #3 He is doing fairly well. He has minimal complaints related to the knee at this time. He is making fairly good progress with therapy. He has told me that he was told that a PICC line cannot be done until tomorrow and that his discharge probably will not be until Saturday because arrangements will probably not be made until then. Physical therapy reports that the ambulation distance was 10 feet, then 200 feet. The range of motion was 0 degrees of extension to 92 degrees of flexion. Physical Exam Vital signs: Vital Signs 02/17/18 10:05 02/17/18 16:00 02/17/18 20:00 Temperature 98.4 F 97.8 F Pulse Rate 63 68 Respiratory Rate 20 20 Blood Pressure 147/70 H 168/82 H Pulse Oximetry 94 L 95 95 02/18/18 00:00 02/18/18 04:00 02/18/18 07:30 Temperature 97.8 F 97.3 F L 97.4 F L Pulse Rate 62 64 64 Respiratory Rate 20 20 20 Blood Pressure 166/84 H 179/86 H 146/79 H Pulse Oximetry 96 96 96 Intake & Output 02/17/18 02/18/18 02/18/18 18:59 06:59 18:59 Intake Total 1615 / 1615 Output Total 100 / 100 1300 / 1300 320 / 320 Balance 1515 / 1515 -1300 / -1300 -320 / -320 Weight 100.6 kg 99.1 kg Intake: IV 1615 / 1615 Cubicin Inj 600 MG In NS Inj 100 / 100 100 ML @ 200 mls/hr IV.SIG Q24H ANTHONY Rx#:[id number] Vancomycin Inj 1,500 MG In NS 515 / 515 Inj 500 ML @ 250 mls/hr IV.SIG Q12H ANTHONY Rx#:[id number] Output: Urine 1300 / 1300 320 / 320 Wound Drainage 100 / 100 # 1 Left Knee Hemovac 100 / 100 Other: Date of Last Bowel Movement 02/17/18 02/17/18 Narrative: When seen, he was just starting with physical therapy. He is walking well with a walker, full weightbearing. The dressing is dry and intact. His neurovascular status is intact Results - Labs CBC & Chem 7: 02/18/18 06:06 02/18/18 06:06 Laboratory Results - last 24 hr 02/17/18 02/17/18 02/18/18 07:24 07:24 06:06 WBC 9.4 RBC 3.67 L Hgb 11.1 L 11.3 L Hct 32.6 L 32.5 L MCV 88.7 MCH 30.9 MCHC 34.8 RDW 13.9 Plt Count 305 MPV 7.1 Sodium 138 Potassium 4.0 Chloride 104 Carbon Dioxide 26.7 Anion Gap 7 BUN 15 Creatinine 0.90 Estimated GFR 82 L Random Glucose 94 Calcium 8.2 L 02/18/18 06:06 WBC RBC Hgb Hct MCV MCH MCHC RDW Plt Count MPV Sodium 139 Potassium 3.6 Chloride 104 Carbon Dioxide 27.2 Anion Gap 8 BUN 12 Creatinine 0.79 Estimated GFR Greater than 89 Random Glucose 93 Calcium 8.3 L Microbiology 02/16/18 13:55 Blood - Peripheral Aerobic Blood Culture - Preliminary No growth in 1 day 02/16/18 13:55 Blood - Peripheral Anaerobic Blood Culture - Preliminary No growth in 1 day 02/16/18 13:48 Blood - Peripheral Aerobic Blood Culture - Preliminary No growth in 1 day 02/16/18 13:48 Blood - Peripheral Anaerobic Blood Culture - Preliminary No growth in 1 day 02/15/18 08:48 Fluid - Other Acid Fast Bacilli Smear - Final No acid fast bacilli seen 02/15/18 08:48 Tissue - Knee Acid Fast Bacilli Smear - Final No acid fast bacilli seen 02/15/18 08:48 Fluid - Other Gram Stain - Final 02/15/18 08:48 Fluid - Other Wound Culture - Final Enterococcus faecalis 02/15/18 08:48 Tissue - Knee Gram Stain - Final 02/15/18 08:48 Tissue - Knee Wound Culture - Final Enterococcus faecalis 02/14/18 13:20 Blood - Peripheral Aerobic Blood Culture - Final Enterococcus faecalis 02/14/18 13:20 Blood - Peripheral Anaerobic Blood Culture - Final Enterococcus faecalis 02/14/18 13:15 Blood - Peripheral Aerobic Blood Culture - Final Enterococcus faecalis 02/14/18 13:15 Blood - Peripheral Anaerobic Blood Culture - Final Enterococcus faecalis 02/14/18 15:45 Fluid - Synovial Fluid Gram Stain - Final 02/14/18 15:45 Fluid - Synovial Fluid Body Fluid Culture - Final Enterococcus faecalis - Procedures Arthrotomy, left knee with synovectomy, irrigation and excisional debridement and tibial polyethylene exchange, left total knee, on 02/15/2018. Assessment and Plan - Ortho Post Op Day # 3 - Assessment and Plan Condition: Good. Orthopedically stable. DVT prophylaxis: TEDs, aspirin, sequentials. Discharge plans: Home with home health care. He will need to be on parenteral antibiotics possibly for up to 6 weeks; however I will leave this up to the infectious disease specialist, Dr. Kim. Spoken with Dr. Kim yesterday morning. He agreed to set this up for his antibiotic therapy. An appointment will need to be scheduled with Dr. Smith for 3-4 weeks. There is still a possibility that he will need to have another operation within the next several days to weeks. This would possibly be a repeat arthrotomy and debridement with removal of implants and placement of an antibiotic laden dynamic cement spacer. In the event that this type of procedure would be necessary, he would also need a repeat procedure at some point in the future to convert this to a revised total knee replacement. Dr. Kim's assistance is appreciated. When his antibiotic therapy and PICC line have been finalized, he may be discharged home at any time with home health care. I have reviewed the case management notes regarding this. I have also reviewed the microbiology reports. I have discussed this with the patient. Apparently, the PICC line will not be done until tomorrow. I will continue to follow the patient.
--- NOTE | 2018-02-18 10:28 | P.PNFP ---
Subjective Interval history: Patient doing well this morning. No acute events overnight. Pain is well controlled. Discussed with patient new IV antibiotic regimen, including the fact he will need to stop taking his statin medication until March. Discussed with patient holiday week, and the likelihood that he will get a PICC line tomorrow. It seems like from an ID and orthopedics surgery standpoint patient it is good to be discharge as soon as outpatient IV antibiotic regimen is arranged. We will continue to work closely with egg caser to discharge patient as soon as possible. Patient is eating and drinking okay, denies any nausea or vomiting, is having regular bowel movements. Discussed with patient his elevated blood pressure, and the need of possible adding an as needed medication while inpatient. Patient had several questions including if methotrexate was the cause of this infection, discussed with patient that this is a standard RA therapy, not known to cause infections, but does lower immune system response. Very likely there was a combination of decreased immune system , as well as infection with an entry source. Patient working very well with physical therapy, ambulating well with assistance. Results - Labs Result diagrams: 02/18/18 06:06 02/18/18 06:06 Abnormal lab results 02/17/18 02/18/18 02/18/18 Range/Units 07:24 06:06 06:06 RBC 3.67 L (4.50-5.90) mil/mm3 Hgb 11.3 L (13.0-17.0) gm/dL Hct 32.5 L (39.0-51.0) % Estimated GFR 82 L (>89) mL/min Calcium 8.2 L 8.3 L (8.5-10.1) mg/dL Short CBC 02/18/18 Range/Units 06:06 WBC 9.4 (4.0-11.0) th/mm3 Hgb 11.3 L (13.0-17.0) gm/dL Hct 32.5 L (39.0-51.0) % Plt Count 305 (150-450) th/mm3 BMP 02/17/18 02/18/18 07:24 06:06 Sodium 138 139 Potassium 4.0 3.6 Chloride 104 104 Carbon Dioxide 26.7 27.2 BUN 15 12 Creatinine 0.90 0.79 Calcium 8.2 L 8.3 L Physical Exam Vital signs: Vital Signs 02/17/18 16:00 02/17/18 20:00 02/18/18 00:00 Temperature 98.4 F 97.8 F 97.8 F Pulse Rate 63 68 62 Respiratory Rate 20 20 20 Blood Pressure 147/70 H 168/82 H 166/84 H Pulse Oximetry 95 95 96 02/18/18 04:00 02/18/18 07:30 Temperature 97.3 F L 97.4 F L Pulse Rate 64 64 Respiratory Rate 20 20 Blood Pressure 179/86 H 146/79 H Pulse Oximetry 96 96 Intake & Output 02/17/18 02/18/18 02/18/18 18:59 06:59 18:59 Intake Total 1615 / 1615 Output Total 100 / 100 1300 / 1300 320 / 320 Balance 1515 / 1515 -1300 / -1300 -320 / -320 Weight 100.6 kg 99.1 kg Intake: IV 1615 / 1615 Cubicin Inj 600 MG In NS Inj 100 / 100 100 ML @ 200 mls/hr IV.SIG Q24H ANTHONY Rx#:[id number] Vancomycin Inj 1,500 MG In NS 515 / 515 Inj 500 ML @ 250 mls/hr IV.SIG Q12H ANTHONY Rx#:[id number] Output: Urine 1300 / 1300 320 / 320 Wound Drainage 100 / 100 # 1 Left Knee Hemovac 100 / 100 Other: Date of Last Bowel Movement 02/17/18 02/17/18 Narrative: Narrative: GENERAL: 77 yo male sitting in bed in [facility]. SKIN: Warm and dry. No lesions or rash. EYES: No scleral icterus. No injection or drainage. CARDIOVASCULAR: Regular rate and rhythm without murmurs, gallops, or rubs. RESPIRATORY: Breath sounds equal bilaterally. No accessory muscle use. Mild expiratory wheezing heard bilaterally. GASTROINTESTINAL: Abdomen soft, non-tender, nondistended. MUSCULOSKELETAL: No cyanosis. The left knee is wrapped with an Leonardo bandage that is c/d/i. Pt able to move L leg side to side without difficulties. L knee inflammation is improving. Assessment and Plan - Assessment (1) Septic arthritis Code(s): M00.9 - Pyogenic arthritis, unspecified Status: Acute (2) Bacteremia Code(s): R78.81 - Bacteremia Status: Acute (3) Pyogenic bacterial arthritis of left knee Code(s): M00.862 - Arthritis due to other bacteria, left knee Status: Acute (4) Status post total left knee replacement using cement Code(s): Z96.652 - Presence of left artificial knee joint Status: Chronic Onset Date: 05/23/04 (5) Status post total replacement of left hip Code(s): Z96.642 - Presence of left artificial hip joint Status: Chronic - Assessment and Plan 77 YO male with PMHx RA, arthritis, HTN, peripheral neuropathy and skin cancer who is POD#1 after left knee arthrotomy with synovectomy, irrigation and excisional debridement and tibial polyethylene exchange, left total knee. Pt was also bacteremic and with sepsis on admission. Pt is currently stable. Septic arthritis of left knee -POD#3 as above, see OP report -Fluid study growing Enterococcus faecalis -Pain: Toradol and [place] PRN Bacteremia -Blood cultures 02/15 positive for Enterococcus faecalis x4; -ID consulted and following, started on daptomycin 600mg IV q24hr -Blood cx 02/16 NGTD RA -Methylprednisolone 4 mg PO daily -Cymbalta 60 mg daily HTN - Hard to manage, pt had some low BP but now is having elevated ones. -HCTZ 6.25 mg daily; hold if SBP<110 and/or DBP<60 and/or HR <55 (hold this one first) -Losartan 50 mg daily; hold if SBP<110 and/or DBP<60 and/or HR <55 Familial HLD -Zetia 10 mg daily -Pravastatin 20 mg hs- Stopped due to Daptomycin interaction. Will resume in March GERD -Protonix 40 mg daily FEN/GI/PPx Fluids: IV 130mls/hr Electrolytes: monitor and replace as needed Nutrition: regular diet GI: Protonix as above PPx: SCDs / SASCHA hose ASA 81 mg PT following surgery as per orthopedics Tylenol 650 mg PRN Zofran 4 mg PRN Dispo: Pt will be cleared by Dr Smith, have Blood cx with NGTD >48 hours, PICC line and IV abx as determined by ID prior to discharge. Likely 1-[address] Barba (1) Septic arthritis Qualifiers: Septic arthritis location: knee Laterality: left
[2018-02-18] MEDS: DAPTOmycin Inj 600 MG in Sodium Chlor 0.9% Inj 100 ML IV.SIG SCH (13:08)
--- NOTE | 2018-02-19 06:32 | P.PNOP ---
Subjective Interval history: Postop day #4 He is doing fairly well. He does have some back pain today. His knee is doing well. Physical therapy reports that the ambulation distance was 300 feet. The range of motion was 0 degrees of extension to 95 degrees of flexion. Physical Exam Vital signs: Vital Signs 02/18/18 07:30 02/18/18 11:35 02/18/18 16:34 Temperature 97.4 F L 97.5 F L 98.3 F Pulse Rate 64 65 63 Respiratory Rate 20 20 18 Blood Pressure 146/79 H 121/65 152/70 H Pulse Oximetry 96 95 95 02/18/18 20:00 02/18/18 21:00 02/19/18 00:00 Temperature 97.8 F 97.8 F Pulse Rate 62 69 Respiratory Rate 19 19 Blood Pressure 139/75 145/65 H Pulse Oximetry 97 98 93 L 02/19/18 04:00 02/19/18 05:37 02/19/18 06:18 Temperature Pulse Rate 69 Respiratory Rate 18 18 18 Blood Pressure 178/80 H Pulse Oximetry 95 02/19/18 06:20 02/19/18 06:23 Temperature 97.6 F 97.6 F Pulse Rate 66 63 Respiratory Rate 18 18 Blood Pressure 170/79 H 165/79 H Pulse Oximetry 95 94 L Intake & Output 02/18/18 02/18/18 02/19/18 06:59 18:59 06:59 Intake Total 100 / 100 Output Total 1300 / 1300 320 / 320 Balance -1300 / -1300 -220 / -220 Weight 99.1 kg Intake: IV 100 / 100 Cubicin Inj 600 MG In NS Inj 100 / 100 100 ML @ 200 mls/hr IV.SIG Q24H ANTHONY Rx#:[id number] Output: Urine 1300 / 1300 320 / 320 Other: Date of Last Bowel Movement 02/17/18 02/18/18 Narrative: His dressing is dry and intact. He is resting comfortably, supine in the bed. The neurovascular status is intact. Results - Labs CBC & Chem 7: 02/18/18 06:06 02/18/18 06:06 Laboratory Results - last 24 hr 02/18/18 02/18/18 06:06 06:06 WBC 9.4 RBC 3.67 L Hgb 11.3 L Hct 32.5 L MCV 88.7 MCH 30.9 MCHC 34.8 RDW 13.9 Plt Count 305 MPV 7.1 Sodium 139 Potassium 3.6 Chloride 104 Carbon Dioxide 27.2 Anion Gap 8 BUN 12 Creatinine 0.79 Estimated GFR Greater than 89 Random Glucose 93 Calcium 8.3 L Microbiology 02/16/18 13:55 Blood - Peripheral Aerobic Blood Culture - Preliminary No growth in 2 days 02/16/18 13:55 Blood - Peripheral Anaerobic Blood Culture - Preliminary No growth in 2 days 02/16/18 13:48 Blood - Peripheral Aerobic Blood Culture - Preliminary No growth in 2 days 02/16/18 13:48 Blood - Peripheral Anaerobic Blood Culture - Preliminary No growth in 2 days - Procedures Arthrotomy, left knee with synovectomy, irrigation and excisional debridement and tibial polyethylene exchange, left total knee, on 02/15/2018. Assessment and Plan - Ortho Post Op Day # 4 - Assessment and Plan Condition: Good. Orthopedically stable. DVT prophylaxis: TEDs, aspirin, sequentials. Discharge plans: Home with home health care. He will need to be on parenteral antibiotics possibly for up to 6 weeks; however I will leave this up to the infectious disease specialist, Dr. Kim. He agreed to set this up for his antibiotic therapy. An appointment will need to be scheduled with Dr. Smith for 3-4 weeks. There is still a possibility that he will need to have another operation within the next several days to weeks. This would possibly be a repeat arthrotomy and debridement with removal of implants and placement of an antibiotic laden dynamic cement spacer. In the event that this type of procedure would be necessary, he would also need a repeat procedure at some point in the future to convert this to a revised total knee replacement. Dr. Kim's assistance is appreciated. When his antibiotic therapy and PICC line have been finalized, he may be discharged home at any time with home health care. I have reviewed the case management notes regarding this. I have also reviewed the microbiology reports. I have discussed this with the patient. Apparently, the PICC line will not be done until tomorrow. I will continue to follow the patient.
--- NOTE | 2018-02-19 06:34 | P.DCO ---
- Physical Therapy Physical Therapy: Gait training Knee: Total knee, Protocol: Left, Gait training, Full weight bearing Left Lower Extremity Weight Bearing: Weight bearing as tolerated Left Lower Extremity Range of Motion: Active ROM - Nursing Nursing: Dressing changes, Other (Antibiotic therapy, per Dr. Kim's orders.) Dressing changes: Other Additional instructions: Do not remove Dermabond Prineo (the tape that is directly on the wound). Leave the Optifoam dressing in place for 7 days. After this, daily dressing changes will be done taking care to avoid injuring or removing the Dermabond Prineo. - Certification Need for Home Health services: I have seen patient Michael Sal on 02/19/18. My clinical findings support the need for the requested home health care services because: Need for Home Health Services: Deconditioned with increased weakness, Limited ability to care for self, High risk of falls Homebound Certification: I certify that my clinical findings support that this patient is homebound because: Homebound Certification: Post-op weakness, Unsteady gait/balance, Unsafe to leave home unassisted
[2018-02-19] MEDS: hydroCHLOROthiazide 25 MG Tablet PO SCH (09:12)
[2018-02-19] MEDS: Senna/Docusate Sodium 8.6/50 MG Tablet PO SCH (09:14)
[2018-02-19] MEDS: Folic Acid 1 MG Tablet PO SCH (09:14)
[2018-02-19] MEDS: Ezetimibe 10 MG Tablet PO SCH (09:18)
[2018-02-19 10:12] VITALS: BP 138/64; PULSE 71; RESP 20; TEMP 97.3; O2SAT 97
--- NOTE | 2018-02-19 12:21 | P.PNFP ---
Subjective Interval history: Patient seen and evaluated this morning. He reports doing well, he is happy the dressing was removed from his left knee, he feels he is able to move it better. His pain is well controlled on current medications, he would like to go home as soon as possible. Discussed with patient home management and needs. Discussed with patient pain medication regimen including dosing and timing. Patient is eating okay, denies any chest pain, shortness of breath, review with patient the need IV antibiotics daily until March 26, that will be administered by the home health nurse. Patient voiced understanding. Results - Labs Result diagrams: 02/18/18 06:06 02/18/18 06:06 Physical Exam Vital signs: Vital Signs 02/18/18 16:34 02/18/18 20:00 02/18/18 21:00 Temperature 98.3 F 97.8 F Pulse Rate 63 62 Respiratory Rate 18 19 Blood Pressure 152/70 H 139/75 Pulse Oximetry 95 97 98 02/19/18 00:00 02/19/18 04:00 02/19/18 05:37 Temperature 97.8 F Pulse Rate 69 69 Respiratory Rate 19 18 18 Blood Pressure 145/65 H 178/80 H Pulse Oximetry 93 L 95 02/19/18 06:18 02/19/18 06:20 02/19/18 06:23 Temperature 97.6 F 97.6 F Pulse Rate 66 63 Respiratory Rate 18 18 18 Blood Pressure 170/79 H 165/79 H Pulse Oximetry 95 94 L 02/19/18 09:50 Temperature 97.3 F L Pulse Rate 71 Respiratory Rate 20 Blood Pressure 138/64 Pulse Oximetry 97 Intake & Output 02/18/18 02/19/18 02/19/18 18:59 06:59 18:59 Intake Total 100 / 100 442 / 442 Output Total 320 / 320 Balance -220 / -220 442 / 442 Weight 98.2 kg Intake: IV 100 / 100 Cubicin Inj 600 MG In NS Inj 100 / 100 100 ML @ 200 mls/hr IV.SIG Q24H ANTHONY Rx#:[id number] Oral 442 / 442 Output: Urine 320 / 320 Other: # Voids 1 Date of Last Bowel Movement 02/17/18 02/18/18 02/19/18 # Bowel Movements 1 Narrative: GENERAL: 77 yo male sitting in chair in [facility]. SKIN: Warm and dry. No lesions or rash. CARDIOVASCULAR: Regular rate and rhythm without murmurs, gallops, or rubs. RESPIRATORY: Breath sounds equal bilaterally. No accessory muscle use. Mild expiratory wheezing heard bilaterally. GASTROINTESTINAL: Abdomen soft, non-tender, nondistended. MUSCULOSKELETAL: No cyanosis. New dressing in place on L knee. Clean and dry, an old/ dry blood spot is observed below the patella. Pt able to move L leg without difficulties. L knee inflammation is improving. Assessment and Plan - Assessment (1) Septic arthritis Code(s): M00.9 - Pyogenic arthritis, unspecified Status: Acute (2) Bacteremia Code(s): R78.81 - Bacteremia Status: Acute (3) Pyogenic bacterial arthritis of left knee Code(s): M00.862 - Arthritis due to other bacteria, left knee Status: Acute (4) Status post total left knee replacement using cement Code(s): Z96.652 - Presence of left artificial knee joint Status: Chronic Onset Date: 05/23/04 (5) Status post total replacement of left hip Code(s): Z96.642 - Presence of left artificial hip joint Status: Chronic - Assessment and Plan 77 YO male with PMHx RA, arthritis, HTN, peripheral neuropathy and skin cancer who is POD#1 after left knee arthrotomy with synovectomy, irrigation and excisional debridement and tibial polyethylene exchange, left total knee. Pt was also bacteremic and with sepsis on admission. Pt is currently stable. Septic arthritis of left knee -POD#4 as above, see OP report -Fluid study growing Enterococcus faecalis -Pain: Toradol and [place] PRN Bacteremia -Blood cultures 02/15 positive for Enterococcus faecalis x4; -ID consulted and following, started on daptomycin 600mg IV q24hr -Blood cx 02/16 NGTD RA -Methylprednisolone 4 mg PO daily -Cymbalta 60 mg daily HTN - Hard to manage, pt had some low BP but now is having elevated ones. -HCTZ 6.25 mg daily; hold if SBP<110 and/or DBP<60 and/or HR <55 (hold this one first) -Losartan 50 mg daily; hold if SBP<110 and/or DBP<60 and/or HR <55 Familial HLD -Zetia 10 mg daily -Pravastatin 20 mg hs- Stopped due to Daptomycin interaction. Will resume in March GERD -Protonix 40 mg daily FEN/GI/PPx Fluids: IV 130mls/hr Electrolytes: monitor and replace as needed Nutrition: regular diet GI: Protonix as above PPx: SCDs / SASCHA hose ASA 81 mg PT following surgery as per orthopedics Tylenol 650 mg PRN Zofran 4 mg PRN Dispo: Pt is Dr Smith, has Blood cx with NGTD >48 hours, PICC line ordered and pending and IV abx as determined by ID prior to discharge. Likely today, or tomorrow. Pt DW Dr Barba (1) Septic arthritis Qualifiers: Septic arthritis location: knee Laterality: left
[2018-02-19] MEDS ORDERED: Heparin Central Flush 100 UNIT/ML 5 ML Vial IV.FLUSH PRN (13:37)
[2018-02-19] MEDS: DAPTOmycin Inj 600 MG in Sodium Chlor 0.9% Inj 100 ML IV.SIG SCH (13:47)
[2018-02-20] MEDS ORDERED: Heparin Central Flush 100 UNIT/ML 5 ML Vial IV.FLUSH SCH (09:00)
--- NOTE | 2018-02-21 13:38 | P.DS ---
Date of admission: 02/14/18 16:45 Primary care physician: Yousif Brock MD Brief History from admission: Mr. Sal is a 77-year-old male with prior medical history of rheumatoid arthritis, hypertension, peripheral neuropathy, arthritis, hyperlipidemia and possible prediabetes who presents with an episode of possible TIA this morning and a swollen left knee with effusion. Patient reports he was fine yesterday but his who is also attending interview reports that he had a high diastolic blood pressure. His reports that she woke him up this morning at 9:15 as he usually doesn't sleep that late. Upon awaking him, he was disoriented and couldn't remember the word cane and was having word finding difficulty. This episode resolved after about an hour and a half. He did not take any medication during this time. He ate half a piece of toast. His called 911 due to his confusion and word finding difficulty and he was brought to the ED by [facility]. He also reports he had a very swollen and painful left knee that was not painful at all yesterday. He saw Dr Hill yesterday to have facial cancer excised and was having no trouble walking then. His reports his skin is very thin and he had a little piece of dry skin on his left lower dick that he picked off and it started to bleed on Saturday. They presume this could have been the source of the infection. He has indwelling hardware from previous surgeries including left hip and knee arthroplasty performed by Dr Smith who has been consulted to assist in managing his case. In the ED 25 cc of purulent fluid was drained from the effusion. Labs are pending on this fluid. There is no Hx of previous joint infection. PMHx RA on methotrexate (saturday time) and steroids (10 yrs) HTN peripheral neuropathy in feet arthritis HLD NO diabetes but possible prediabetes PSurgHx Left TKA Left total hip arthroplasty 2 back surgeries 4 hernias right shoulder cleanout FamHx Mother - age 90, old age Father - age 62, CVA and [place] SocHx Quit smoking cigars 5 years ago (1 cigar per week) drinks 4-6 alcoholic drinks per month no other drugs DS: Diagnosis - Discharge Diagnosis (1) Septic arthritis Status: Acute (2) Bacteremia Status: Acute (3) Pyogenic bacterial arthritis of left knee Status: Acute (4) Status post total left knee replacement using cement Status: Chronic (5) Status post total replacement of left hip Status: Chronic DS: Medications - Discharge Medications Prescriptions: hydrocodone-acetaminophen 1 tab PO Q4H PRN 7 Days #42 tab PRN Reason: Pain DS: Summary Hospital Course: 77 YO male with PMHx RA, arthritis, HTN, peripheral neuropathy and skin cancer presents with painful moderate effusion of left knee that was drained and found to be bloody with gross pus. WBC 19.1, CRP 20, fluid study pending. Pt was admitted due to septic arthritis, Orthopedics, Dr Smith, was consulted and performed a left knee arthrotomy with synovectomy, irrigation and excisional debridement and tibial polyethylene exchange. Pt was also found to be bacteremic, with four blood cultures growing E.Fecaelis. Infectious disease was consulted and recommended Daptomycin IV antibiotics for 6 weeks. While in the hospital, pt received PT and OT. Pt was discharged in a stable condition home with home health PT, and nursing for IV antibiotic administration. Pt has scheduled follow up with Orthopedic Surgery. Repeat Blood cultures at 48 hrs were negative x 5 days. - Time Spent with Patient Total time spent providing and/or coordinating discharge services: Greater than 30 minutes Exam Narrative: GENERAL: 77 yo male sitting in chair in NAD. SKIN: Warm and dry. No lesions or rash. CARDIOVASCULAR: Regular rate and rhythm without murmurs, gallops, or rubs. RESPIRATORY: Breath sounds equal bilaterally. No accessory muscle use. Mild expiratory wheezing heard bilaterally. GASTROINTESTINAL: Abdomen soft, non-tender, nondistended. MUSCULOSKELETAL: No cyanosis. New dressing in place on L knee. Clean and dry, an old/ dry blood spot is observed below the patella. Pt able to move L leg without difficulties. L knee inflammation is improving. Results Procedures completed during hospitalization: Arthrotomy, left knee with synovectomy, irrigation and excisional debridement and tibial polyethylene exchange, left total knee, on 02/15/2018. Labs on day of discharge: Labs from last 24 hours 02/14/18 02/14/18 15:45 15:45 Synovial Glucose 4 Synovial Total Protein 3.6 H - Impressions ITS Impressions Chest X-Ray 02/14/18 12:30 CONCLUSION: No acute cardiopulmonary disease. Head CT 02/14/18 12:30 CONCLUSION: 1. No acute intracranial abnormality. 2. 2 cm mass-like lesion within the posterior nasopharynx which may represent a Thornwaldt cyst or other soft tissue mass. ENT evaluation of this finding may be helpful with direct visualization. 3. Mucus retention cyst within the sphenoid sinuses bilaterally. . Aspiration 02/14/18 13:30 CONCLUSION: 1. Uncomplicated left knee aspiration as above. Knee X-Ray 02/15/18 10:23 CONCLUSION: Good appearance of the total knee replacement. Discharge Plan - Discharge Disposition Patient Disposition: W/Home Health Service - Discharge Condition Condition: Stable - Discharge Order Discharge Orders: Discharge Order (Routine); Ordered 02/19/18 Ordered By: Janel Gamboa R1 - Physicians Team Primary Care Provider: Yousif Brock Attending Provider: Cecilio Barba Other Providers: Shawn Kim MD ; Jean Pierre Fischer MD
== END 2018-02-19 16:26 | disposition home health service (06) ==
LOC: NEPC 12:15 → NEDA 16:45 → N05 18:29
PROVIDERS: ADMIT Family Medicine; ATTEND Family Medicine